=== PATIENT | male | born 1955 | race Caucasian/White ===

== ENCOUNTER → 2020-07-10 08:34 | Outpatient (REF) | payer MEDICARE, OTHER, SELFPAY ==
--- NOTE | 2020-07-10 08:30 | CA_ITS ---
Transthoracic Echocardiogram Patient (Last, First, Middle): Jonnathan Hyatt, Gender: Male Date of : 1955 Age: 65 Procedure Date: 07/10/2020 Procedure Type: Transthoracic Echocardiogram Location: OP Height: 175.26 cm Weight: 115.67 kg BSA: 2.29 m2 Heart Rate: bpm BP: 110 / 70 mmHg Executive Office Manager: [email or web address] Referring MD: Michael Hargrove MD Timber Repairer: Michael Hargrove MD Symptoms: Z98.890 S/P MV REPAIR, I48.0 PAF I34.0 NON RHEU MR Study Quality: Fair ECG Rhythm: Sinus with extra beats Conclusions: - 1. Normal LV systolic function with possible pseudonormal filling pattern 2. Good mitral valve repair with mitral annuloplasty ring in place 3. Normal RV systolic pressure 4. No gross pericardial effusion Findings Left Ventricle Normal left ventricular size, thickness, and systolic function. The visually estimated ejection fraction is between 60-65%. Spectral Doppler is indicative of a pseudonormal filling pattern. Right Ventricle Normal right ventricular cavity size and systolic function. Atria The left atrium is likely dilated. There is no evidence of interatrial shunt. The right atrium is normal in size. Aortic Valve There is mild calcification of the aortic valve. There is mild thickening of the aortic valve. There is no aortic valve stenosis. There is no aortic valve regurgitation. Mitral Valve There is mild anterior and posterior mitral leaflet thickening. There is trace mitral valve regurgitation. There is no mitral valve stenosis. Reflectile mitral annulus, consistent with mitral annular ring in place. Mitral repair appears adequate Pulmonic Valve The pulmonic valve was not well visualized. Tricuspid Valve Likely normal tricuspid valve structure and function. There is mild tricuspid valve regurgitation. The right ventricular systolic pressure is normal. The right ventricular systolic pressure is 19 mmHg. Normal right atrial pressure. There is no evidence of pulmonary hypertension. Great Vessels All visible segments of the aorta are normal in size. The pulmonary artery was not well visualized. Venous The inferior vena cava is normal in size and collapses greater than 50% with inspiration. Pericardium/Pleural There is no evidence of pericardial effusion. Prior Study Comparison No significant change compared to prior study dated: 07/13/2019. Measurements 2D Linear Measurements IVSd: 1.11 0.6-0.9/0.6-1.0 cm LVIDd: 4.87 3.9-5.3/4.2-5.9 cm LVIDd Index: 2.13 2.4-3.2/2.2-3.1 cm/m2 LVIDs: 3.14 2.0-3.6 cm LVPWd: 1.13 0.7-1.1 cm Ao Root: 3.80 2.1-3.5 cm LA Diam: 4.10 2.7-3.8/3.0-4.0 cm LAIDs Index: 1.79 1.5-2.3 cm/m2 LV Mass: 253.68 67-162/88-224 g LV Mass Index: 110.78 43-95/49-115 g/m2 LVOT Diam: 2.30 3.0+(-)1.3 cm 2D Systolic Function EF 4C: 59.90 >55% EF 2C: 60.90 >55% EF BiP: 59.30 >55% Mitral Valve MV VTI: 0.47 MV Pk Mathew: 1.36 MV Mn Mathew: 0.79 MV Pk Grad: 7.00 MV Mn Grad: 3.00 MV Pk E: 1.36 MV PK A: 0.64 MV Decel Time: 261.00 E/A: 2.10 E'Lateral: 9.19 E'Medial: 6.96 E/E' Med: 19.50 E/E' Lat: 14.80 PHT: 139.00 MVA PHT: 1.58 MVA Continuity: 1.86 Decel [place]: 2.94 Aortic Valve AoV Pk Mathew: 1.10 AoV Mn Mathew: 0.75 AoV VTI: 0.27 AoV Pk Grad: 5.00 Aov Mn Grad: 2.00 JIMBO Cont.VTI: 3.27 LVOT LVOT Pk Mathew: 0.87 LVOT Mn Mathew: 0.61 LVOT VTI: 0.21 LVOT Pk Grad: 3.00 LVOT Mn Grad: 2.00 LVOT Diam: 2.30 LVOT Area: 4.15 Diastolic Function MV Pk E: 1.36 MV Pk A: 0.64 E/A: 2.10 E'Medial: 6.96 E/E' Med: 19.50 E' Laterial: 9.19 E/E' Lat: 14.80 Tricuspid Valve TR Pk Mathew: 2.02 TR Pk Grad: 16.00 RA Press: 3.00 RVSP: 19.00 Great Vessels Aorta Ao Root-2D: 3.80 2.0-3.7 cm Ao Asc: 3.80 2.1-3.4 cm Ao Arch: 2.90 Updated in Other Vendor System with Status of Final Michael Hargrove MD electronically signed on 07/10/2020 3:53:04 PM with status of Final
== END ==
LOC: HO.CARD 08:34
PROVIDERS: Visit Provider Internal Medicine Cardiovascular Disease
DX: I34.0 Nonrheumatic mitral (valve) insufficiency (principal); I48.0 Paroxysmal atrial fibrillation; Z98.890 Other specified postprocedural states
CPT/HCPCS: 93306

== ENCOUNTER → 2020-07-24 08:53 | Outpatient (BNVA) | payer MEDICARE, OTHER, SELFPAY | PROVIDERS: PCP Nurse Practitioner Adult Health; Visit Provider Internal Medicine Cardiovascular Disease | DX: I48.0 Paroxysmal atrial fibrillation (principal); I10 Essential (primary) hypertension; Z98.890 Other specified postprocedural states; Z79.82 Long term (current) use of aspirin; Z79.899 Other long term (current) drug therapy | CPT/HCPCS: 93005; 99212 ==

== ENCOUNTER → 2021-07-07 08:39 | Outpatient (REF) | payer MEDICARE, OTHER, SELFPAY ==
--- NOTE | 2021-07-07 08:42 | CA_ITS ---
Transthoracic Echocardiogram Patient (Last, First, Middle): Jonnathan Hyatt, Gender: Male Date of : 1955 Age: 66 Procedure Date: 07/07/2021 Procedure Type: Transthoracic Echocardiogram Location: OP Height: 180.34 cm Weight: 116.58 kg BSA: 2.35 m2 Heart Rate: bpm BP: 120 / 62 mmHg Saw Straightener: ROJAS Referring MD: Michael Hargrove MD Home Improvement Advisor: Michael Hargrove MD Symptoms: Z98.890 - Other specified postprocedural states Study Quality: Good ECG Rhythm: Sinus Conclusions: - 1. Normal LV systolic function with possible psuedonormal filling pattern 2. Good mitral valve repair with annuloplasty ring in place 3. Normal RVSP 4. No pericardial effusion Findings Left Ventricle Normal left ventricular size, thickness, and systolic function. The visually estimated ejection fraction is between 60-65%. Spectral Doppler is indicative of a pseudonormal filling pattern. Right Ventricle Normal right ventricular cavity size and systolic function. Atria The left atrium is likely dilated. There is no evidence of interatrial shunt. The right atrium is normal in size. Aortic Valve There is mild calcification of the aortic valve. There is no aortic valve stenosis. There is trace (trivial) aortic valve regurgitation. Mitral Valve There is severe posterior mitral leaflet thickening. There is mild mitral annular calcification. There is trace mitral valve regurgitation. Mitral annular ring in place. Mild mitral stenosis cannot be ruled out. Pulmonic Valve The pulmonic valve was not well visualized. Tricuspid Valve Normal tricuspid valve structure. There is mild tricuspid valve regurgitation. The right ventricular systolic pressure is normal. The right ventricular systolic pressure is 27 mmHg. There is no evidence of pulmonary hypertension. Great Vessels All visible segments of the aorta are normal in size. The pulmonary artery was not well visualized. Venous The inferior vena cava is normal in size and collapses greater than 50% with inspiration. Pericardium/Pleural There is no evidence of pericardial effusion. Prior Study Comparison No significant change compared to prior study dated: 07/10/2020. Measurements 2D Linear Measurements IVSd: 1.13 0.6-0.9/0.6-1.0 cm LVIDd: 5.56 3.9-5.3/4.2-5.9 cm LVIDd Index: 2.37 2.4-3.2/2.2-3.1 cm/m2 LVIDs: 3.02 2.0-3.6 cm LVPWd: 1.06 0.7-1.1 cm LA Diam: 4.20 2.7-3.8/3.0-4.0 cm LAIDs Index: 1.79 1.5-2.3 cm/m2 LV Mass: 305.35 67-162/88-224 g LV Mass Index: 129.94 43-95/49-115 g/m2 LVOT Diam: 2.50 3.0+(-)1.3 cm 2D Systolic Function EF 4C: 64.80 >55% EF 2C: 53.50 >55% EF BiP: 59.30 >55% Mitral Valve MV Pk E: 1.25 MV PK A: 0.53 MV Decel Time: 224.00 E/A: 2.40 PHT: 66.00 MVA PHT: 3.33 Decel [place]: 5.57 Aortic Valve AoV Pk Mathew: 1.18 AoV Pk Grad: 6.00 AI Pk Mathew: 4.25 AI [place]: 1.53 LVOT LVOT Pk Mathew: 0.82 LVOT Mn Mathew: 0.51 LVOT VTI: 0.19 LVOT Pk Grad: 3.00 LVOT Mn Grad: 1.00 LVOT Diam: 2.50 LVOT Area: 4.91 Diastolic Function MV Pk E: 1.25 MV Pk A: 0.53 E/A: 2.40 Right Ventricle TAPSE (mm): 2.65 TVS' Mathew: 14.80 Tricuspid Valve TR Pk Mathew: 2.47 TR Pk Grad: 24.00 RA Press: 3.00 RVSP: 27.00 Great Vessels Aorta Sinus of Valsalva: 3.71 2.0-3.5 cm Ao Asc: 3.70 2.1-3.4 cm Updated in Other Vendor System with Status of Final Michael Hargrove MD electronically signed on 07/07/2021 10:08:45 PM with status of Final
== END ==
LOC: HO.CARD 08:39
PROVIDERS: PCP Nurse Practitioner Adult Health; Visit Provider Internal Medicine Cardiovascular Disease
DX: Z98.890 Other specified postprocedural states (principal)
CPT/HCPCS: 93306

== ENCOUNTER → 2021-07-13 08:49 | Outpatient (BNVA) | payer MEDICARE, OTHER, SELFPAY | PROVIDERS: PCP Nurse Practitioner Adult Health; Visit Provider Internal Medicine Cardiovascular Disease | DX: Z09 Encounter for follow-up examination after completed treatment for conditions other than malignant neoplasm (principal); I48.0 Paroxysmal atrial fibrillation; I49.9 Cardiac arrhythmia, unspecified; Z98.890 Other specified postprocedural states | CPT/HCPCS: 93005; 99212 ==

== ENCOUNTER → 2021-07-15 06:58 | Outpatient (REF) | payer MEDICARE, OTHER, SELFPAY ==
--- NOTE | 2021-07-15 07:01 | HM_ITS ---
* Total monitoring time 14 days. * Underlying rhythm is sinus. Average rate 70/Min. Range 46 to 112/Min. * Frequent ventricular ectopy. Overall burden 5%. 1 morphology. 863 couplets. No significant runs. * Patient symptoms recorded as 'other', correlating with PVCs. MTDD
== END ==
LOC: HO.CARD 06:58
PROVIDERS: Visit Provider Internal Medicine Cardiovascular Disease
DX: I49.9 Cardiac arrhythmia, unspecified (principal)
CPT/HCPCS: 93246

== ENCOUNTER → 2022-07-22 15:13 | Outpatient (BNVA) | payer MEDICARE, OTHER, SELFPAY | PROVIDERS: PCP Nurse Practitioner Adult Health; Referring Provider Nurse Practitioner Adult Health; Visit Provider Internal Medicine Cardiovascular Disease | DX: I48.0 Paroxysmal atrial fibrillation (principal); I10 Essential (primary) hypertension; Z98.890 Other specified postprocedural states | CPT/HCPCS: 93005; 99212 ==

== ENCOUNTER → 2022-08-11 07:43 | Outpatient (REF) | payer MEDICARE, OTHER, SELFPAY ==
--- NOTE | 2022-08-11 07:49 | CA_ITS ---
Transthoracic Echocardiogram Patient (Last, First, Middle): Jonnathan Hyatt, Gender: Male Date of : 1955 Age: 67 Procedure Date: 08/11/2022 Procedure Type: Transthoracic Echocardiogram Location: OP Height: 180.34 cm Weight: 112.49 kg BSA: 2.31 m2 Heart Rate: 63 bpm BP: 130 / 75 mmHg Database Manager: BRENDAN Referring MD: Michael Hargrove MD Symptoms: Z98.890 - Other specified postprocedural states Study Quality: Adequate ECG Rhythm: Normal sinus rhythm with PVCs Conclusions: - 1. Normal LV systolic function with pseudonormal filling pattern 2. Mildly dilated left atrium 3. Good mitral valve repair without any evidence of significant stenosis or regurgitation 4. Upper limits of normal RV systolic pressure 5. No gross pericardial effusion Findings Left Ventricle Normal left ventricular size, thickness, and systolic function. The visually estimated ejection fraction is between 55-60%. Spectral Doppler is indicative of a pseudonormal filling pattern. Right Ventricle Normal right ventricular cavity size and systolic function. Atria The left atrium is mildly dilated. There is no evidence of interatrial shunt. The right atrium is likely dilated. Aortic Valve There is mild calcification of the aortic valve. There is mild thickening of the aortic valve. There is no aortic valve stenosis. There is mild aortic valve regurgitation. Mitral Valve There is mild anterior and moderate posterior mitral leaflet thickening. The posterior mitral leaflet is immobile. There is mild mitral annular calcification. There is no mitral valve regurgitation. There is no mitral valve stenosis. Pulmonic Valve The pulmonic valve was not well visualized. Tricuspid Valve Normal tricuspid valve structure. There is mild anterior tricuspid leaflet thickening. Normal right atrial pressure. There is no evidence of pulmonary hypertension. Great Vessels All visible segments of the aorta are normal in size. The pulmonary artery was not well visualized. Venous The inferior vena cava is normal in size and collapses greater than 50% with inspiration. Pericardium/Pleural There is no evidence of pericardial effusion. Prior Study Comparison No significant change compared to prior study dated: 07/07/2021. Measurements 2D Linear Measurements IVSd: 0.94 0.6-0.9/0.6-1.0 cm LVIDd: 5.41 3.9-5.3/4.2-5.9 cm LVIDd Index: 2.34 2.4-3.2/2.2-3.1 cm/m2 LVIDs: 3.90 2.0-3.6 cm LVPWd: 0.95 0.7-1.1 cm LA Diam: 3.80 2.7-3.8/3.0-4.0 cm LAIDs Index: 1.65 1.5-2.3 cm/m2 LV Mass: 239.07 67-162/88-224 g LV Mass Index: 103.49 43-95/49-115 g/m2 LVOT Diam: 2.20 3.0+(-)1.3 cm 2D Systolic Function EF 4C: 53.90 >55% EF 2C: 59.40 >55% EF BiP: 56.20 >55% Mitral Valve MV Pk E: 1.66 MV PK A: 0.70 MV Decel Time: 177.00 E/A: 2.40 E'Lateral: 9.90 E'Medial: 7.72 E/E' Med: 21.50 E/E' Lat: 16.80 PHT: 52.00 MVA PHT: 4.[address] [place]: 9.41 Aortic Valve AoV Pk Mathew: 1.18 AoV Mn Mathew: 0.95 AoV VTI: 0.25 AoV Pk Grad: 6.00 Aov Mn Grad: 4.00 JIMBO Cont.VTI: 2.72 LVOT LVOT Pk Mathew: 0.89 LVOT Mn Mathew: 0.68 LVOT VTI: 0.18 LVOT Pk Grad: 3.00 LVOT Mn Grad: 2.00 LVOT Diam: 2.20 LVOT Area: 3.80 Diastolic Function MV Pk E: 1.66 MV Pk A: 0.70 E/A: 2.40 E'Medial: 7.72 E/E' Med: 21.50 E' Laterial: 9.90 E/E' Lat: 16.80 Right Ventricle TAPSE (mm): 22.40 TVS' Mathew: 12.80 Tricuspid Valve TR Pk Mathew: 2.96 TR Pk Grad: 35.00 RA Press: 3.00 RVSP: 38.00 Great Vessels Aorta Sinus of Valsalva: 4.20 2.0-3.5 cm Ao Asc: 3.60 2.1-3.4 cm Pulmonary Valve PV Pk Mathew: 0.96 Peak PV Grad: 4.00 Updated in Other Vendor System with Status of Final Michael Hargrove MD electronically signed on 08/12/2022 3:39:20 PM with status of Final
== END ==
LOC: HO.CARD 07:43
PROVIDERS: PCP Nurse Practitioner Adult Health; Visit Provider Internal Medicine Cardiovascular Disease
DX: Z98.890 Other specified postprocedural states (principal)
CPT/HCPCS: 93306

== ENCOUNTER → 2022-10-21 09:49 | Outpatient (BNVA) | payer MEDICARE, OTHER, SELFPAY | PROVIDERS: PCP Nurse Practitioner Adult Health; Visit Provider Internal Medicine Cardiovascular Disease | DX: R29.90 Unspecified symptoms and signs involving the nervous system (principal); I10 Essential (primary) hypertension; I48.0 Paroxysmal atrial fibrillation; Z98.890 Other specified postprocedural states | CPT/HCPCS: 99212 ==

== ENCOUNTER → 2023-10-04 07:51 | Outpatient (REF) | payer MEDICARE, OTHER, SELFPAY ==
--- NOTE | 2023-10-04 07:58 | CA_ITS ---
Transthoracic Echocardiogram Patient (Last, First, Middle): Jonnathan Hyatt, Gender: Male Date of : 1955 Age: 68 Procedure Date: 10/04/2023 Procedure Type: Transthoracic Echocardiogram Location: OP Height: 182.88 cm Weight: 113.4 kg BSA: 2.34 m2 Heart Rate: 65 bpm BP: 152 / 82 mmHg Geothermal Hvac Technician: POP Referring MD: Michael Hargrove MD Manager E Commerce: Michael Hargrove MD Symptoms: s/p Mitral valave repair. Study Quality: Adequate ECG Rhythm: Sinus Conclusions: - 1. Low normal LV ejection fraction of 50-55% with pseudonormal filling pattern 2. Good mitral valve repair 3. Mild aortic regurgitation 4. Normal RV systolic pressure 5. Mildly dilated ascending aorta at 3.8 cm 6. No pericardial effusion Findings Left Ventricle Normal left ventricular cavity size. There is normal left ventricular wall thickness. The left ventricular systolic function is low normal. The visually estimated ejection fraction is between 50-55%. Spectral Doppler is indicative of a pseudonormal filling pattern. Peak GLS is -11.1%, which is severely reduced. Right Ventricle Normal right ventricular cavity size and systolic function. Atria The left atrium is likely dilated. There is no evidence of interatrial shunt. The right atrium is normal in size. Aortic Valve There is mild calcification of the aortic valve. There is mild thickening of the aortic valve. There is no aortic valve stenosis. There is mild aortic valve regurgitation. Mitral Valve There is no mitral valve regurgitation. There is no mitral valve stenosis. mitral annular ring in place. Mitral valve repair appears intact Pulmonic Valve The pulmonic valve is likely normal. Tricuspid Valve Normal tricuspid valve structure. There is mild tricuspid valve regurgitation. The right ventricular systolic pressure is normal. The right ventricular systolic pressure is 31 mmHg. Normal right atrial pressure. There is no evidence of pulmonary hypertension. Great Vessels The pulmonary artery was not well visualized. There is mild dilatation of the ascending aorta measuring 3.80 cm. Venous The inferior vena cava is normal in size and collapses greater than 50% with inspiration. Pericardium/Pleural There is no evidence of pericardial effusion. Prior Study Comparison Changes noted compared to prior study dated: 08/11/2022. LV systolic function has marginally reduced. Ascending aorta is mildly dilated Measurements M-Mode Liner Measurements Normals - Women/Men RVIDd: 4.65 0.9-2.6 cm 2D Linear Measurements IVSd: 1.13 0.6-0.9/0.6-1.0 cm LVIDd: 5.45 3.9-5.3/4.2-5.9 cm LVIDd Index: 2.33 2.4-3.2/2.2-3.1 cm/m2 LVIDs: 4.00 2.0-3.6 cm LVPWd: 0.69 0.7-1.1 cm Ao Root: 3.90 2.1-3.5 cm LA Diam: 4.00 2.7-3.8/3.0-4.0 cm LAIDs Index: 1.71 1.5-2.3 cm/m2 LV Mass: 231.75 67-162/88-224 g LV Mass Index: 99.04 43-95/49-115 g/m2 LVOT Diam: 2.50 3.0+(-)1.3 cm 2D Volumes LA ESV A/L: 31.00 22-52/18-58 ML/M2 RA ESV A/L: 23.50 19-21 ML/M2 Mitral Valve MV VTI: 0.41 MV Pk Mathew: 1.73 MV Mn Mathew: 0.93 MV Pk Grad: 12.00 MV Mn Grad: 4.00 MV Pk E: 1.51 MV PK A: 0.57 MV Decel Time: 239.00 E/A: 2.70 E'Lateral: 7.29 E'Medial: 4.68 E/E' Med: 32.30 E/E' Lat: 20.70 PHT: 70.00 MVA PHT: 3.14 MVA Continuity: 2.03 Decel [place]: 6.33 Aortic Valve AoV Pk Mathew: 1.12 AoV Mn Mathew: 0.90 AoV VTI: 0.27 AoV Pk Grad: 5.00 Aov Mn Grad: 4.00 JIMBO Cont.VTI: 3.06 LVOT LVOT Pk Mathew: 0.77 LVOT Mn Mathew: 0.56 LVOT VTI: 0.17 LVOT Pk Grad: 2.00 LVOT Mn Grad: 2.00 LVOT Diam: 2.50 LVOT Area: 4.91 Diastolic Function MV Pk E: 1.51 MV Pk A: 0.57 E/A: 2.70 E'Medial: 4.68 E/E' Med: 32.30 E' Laterial: 7.29 E/E' Lat: 20.70 IVC Diam Insp: 1.40 IVC Diam Exp: 0.38 Right Ventricle TAPSE (mm): 16.50 TVS' Mathew: 13.80 Tricuspid Valve TR Pk Mathew: 2.66 TR Pk Grad: 28.00 RA Press: 3.00 RVSP: 31.00 IVC Diam Exp: 0.38 IVC Diam Insp: 1.40 Great Vessels Aorta Ao Root-2D: 3.90 2.0-3.7 cm Sinus of Valsalva: 3.90 2.0-3.5 cm Ao Asc: 3.80 2.1-3.4 cm Pulmonary Valve PV Pk Mathew: 0.91 Peak PV Grad: 3.00 Updated in Other Vendor System with Status of Final Michael Hargrove MD electronically signed on 10/05/2023 12:02:43 PM with status of Final
== END ==
LOC: HO.CARD 07:51
PROVIDERS: Visit Provider Internal Medicine Cardiovascular Disease
DX: Z98.890 Other specified postprocedural states (principal)
CPT/HCPCS: 93306; 93356

== ENCOUNTER → 2023-10-04 07:58 | Outpatient (BNV) | payer MEDICARE, OTHER, SELFPAY | PROVIDERS: Visit Provider Internal Medicine Cardiovascular Disease | DX: I36.1 Nonrheumatic tricuspid (valve) insufficiency (principal); Z95.2 Presence of prosthetic heart valve; I35.1 Nonrheumatic aortic (valve) insufficiency; R93.1 Abnormal findings on diagnostic imaging of heart and coronary circulation | CPT/HCPCS: 93306; 93356 ==

== ENCOUNTER 2024-03-28 10:26 | Outpatient (AMB) | payer MEDICARE, OTHER, SELFPAY ==
--- NOTE | 2024-03-28 10:26 | A.OFFVIS_ITS ---
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 Overall he has been doing well. Maintain activity level without any issues. No lightheadedness, syncope. Echocardiogram done in September showed good mitral valve repair with low normal LV ejection fraction with mildly dilated ascending aorta. Denies any prolonged palpitation irregular heartbeat. No bleeding issues or neurologic events. FORMERLY [facility], 1928–1983 Medical History HTN (hypertension) Paroxysmal atrial fibrillation Surgical History H/O mitral valve repair Hx of transesophageal echocardiography (JAIDA) for monitoring Hx of hernia repair Family History Father No problems noted. Mother No problems noted. Social History Alcohol intake: never Patient Tobacco Use Status: Never used Tobacco Review of Systems Const Denies chills, Denies fatigue, Denies fever(s), Denies weight gain and Denies weight loss ENT Denies dizziness Card Denies chest pain, Denies leg edema, Denies lightheadedness, Denies palpitations, Denies dyspnea on exertion, Denies orthopnea and Denies other Resp Denies cough and Denies dyspnea on exertion GI Denies hematochezia and Denies change in stool character Musc Denies abnormal gait, Denies muscle weakness, Denies numbness, Denies radiating pain into limb and Denies tingling Neuro Denies abnormal gait, Denies dizziness, Denies numbness and Denies tingling Endo Denies fatigue and Denies palpitations Physical Exam Vital Signs: Last Vital Signs Pulse 69 03/28/24 10:27 BP 116/58 L 03/28/24 10:27 BMI result Body Mass Index 34.0 Const General: cooperative, comfortable, no acute distress, alert, awake, Physically active and well groomed Nutritional Appearance: obese Orientation/consciousness: patient oriented x3 Limitations: no limitations Neck Neck: Yes trachea midline and Yes no JVD Chest Chest palpation & inspection: normal inspection of the chest and other (Well- healed sternotomy scar) Resp Effort & Inspection: normal respiratory effort Auscultation: clear to auscultation bilaterally Cardio Jugular venous distension: no JVD Palpation: normal PMI Rate: regular rate Rhythm: abnormal rhythm with ectopic beats Heart sounds: S1 normal heart sound present, S2 normal heart sound present, no click, no gallops and no murmurs GI Auscultation: normal bowel sounds Skin General skin exam: no rashes or lesions noted Neuro General: patient oriented x3 and no focal motor deficits Extrem General: Yes no clubbing, cyanosis or edema Psych Appearance: grossly normal Office Procedures EKG Details: EKG shows normal sinus rhythm normal EKG [id number], Complete Assessment & Plan Assessment & Plan (1) H/O mitral valve repair: Code(s): Z98.890 - Other specified postprocedural states Category: Surgical Plan: Patient with prior mitral valve repair which clinically and by echocardiogram is working well. Low normal LV ejection fraction. Continue metoprolol lisinopril with both for neurohormonal modulation as well as for hypertension control. Blood pressure is currently well optimized. No signs or symptoms of heart failure. Currently on full oral anticoagulation with Eliquis and will continue the same. SBE prophylaxis as per ACC/[facility] guidelines. (2) Paroxysmal atrial fibrillation: Comment: Status post biatrial Maze procedure during mitral valve repair surgery call with no clinical recurrence since. Has led to preoperative heart failure. Code(s): I48.0 - Paroxysmal atrial fibrillation Category: Medical Plan: Paroxysmal atrial fibrillation without any overt clinical recurrence currently. Continue metoprolol therapy. Avoidance of stimulants was discussed. Continue full oral anticoagulation, currently on Eliquis 5 mg b.i.d.. No indication for antiarrhythmic drug therapy. Semi annual renal function test should be pursued. Will follow up in the clinic in 1 year's time, sooner p.r.n.. Thank you for allowing me to partake in his care Coding Level of Care Code Est Pt Level 4 (39006) Complex EM visit Add On G2211 Diagnoses H/O mitral valve repair Z98.890 Paroxysmal atrial fibrillation I48.0 CPT Codes EKG - CPT: 79440-[id number], Complete ([id number])
[2024-03-28 10:27] VITALS: BP 116/58; PULSE 69; BMI 34.0
== END 2024-03-28 10:46 | disposition home or self-care (01) ==
PROVIDERS: Visit Provider Internal Medicine Cardiovascular Disease
DX: Z98.890 Other specified postprocedural states (principal); I48.0 Paroxysmal atrial fibrillation
CPT/HCPCS: 93010; 99214; G2211

== ENCOUNTER → 2024-03-28 10:26 | Outpatient (BNVA) | payer MEDICARE, OTHER, SELFPAY | PROVIDERS: Visit Provider Internal Medicine Cardiovascular Disease | DX: I48.0 Paroxysmal atrial fibrillation (principal); Z98.890 Other specified postprocedural states | CPT/HCPCS: 93005; 99212 ==

== ENCOUNTER → 2025-03-19 07:39 | Outpatient (REF) | payer MEDICARE, OTHER, SELFPAY ==
--- NOTE | 2025-03-19 07:42 | CA_ITS ---
Transthoracic Echocardiogram Patient (Last, First, Middle): Jonnathan Hyatt, Gender: M Date of : 1955 Age: 69 Procedure Date: 03/19/2025 Procedure Type: Transthoracic Echocardiogram Location: OP Height: 182.88 cm Weight: 113.4 kg BSA: 2.34 m2 Heart Rate: bpm BP: 128 / 76 mmHg Patient Registration Specialist: TO Referring MD: Michael Hargrove MD Symptoms: Z98.890 - Other specified postprocedural states Study Quality: Adequate w contrast Conclusions: - The left ventricular systolic function is mildly decreased. The calculated ejection fraction is 42% by biplane method. - Moderately increased right ventricular cavity size. - Evidence suggests grade II (moderate) diastolic dysfunction. - s/p mitral valve repair with normal valvular function. Findings Procedure Information Contrast agent, definity, is being given per protocol without apparent complications. Left Ventricle Normal left ventricular cavity size. The left ventricular systolic function is mildly decreased. The calculated ejection fraction is 42% by biplane method. There is mild global hypokinesis. Evidence suggests grade II (moderate) diastolic dysfunction. There is mild septal asymmetric hypertrophy. Right Ventricle Moderately increased right ventricular cavity size. There is normal right ventricular systolic function. Atria Mild biatrial enlargement. Aortic Valve There is a normal trileaflet aortic valve. There is mild calcification of the aortic valve. There is no aortic valve stenosis. There is trace (trivial) aortic valve regurgitation. Mitral Valve There is trace mitral valve regurgitation. There is no mitral valve stenosis. s/p mitral valve repair. Pulmonic Valve The pulmonic valve is likely normal. Tricuspid Valve There is trace tricuspid valve regurgitation. There is no evidence of pulmonary hypertension. Great Vessels The asc aorta is normal in size. Venous The inferior vena cava is normal in size and collapses greater than 50% with inspiration. Pericardium/Pleural There is no evidence of pericardial effusion. Prior Study Comparison Changes noted compared to prior study dated: 10/04/2023. LVEF slightly lower than previously reported. Measurements 2D Linear Measurements IVSd: 1.04 0.6-0.9/0.6-1.0 cm LVIDd: 5.43 3.9-5.3/4.2-5.9 cm LVIDd Index: 2.32 2.4-3.2/2.2-3.1 cm/m2 LVIDs: 3.53 2.0-3.6 cm LVPWd: 0.96 0.7-1.1 cm LA Diam: 4.30 2.7-3.8/3.0-4.0 cm LAIDs Index: 1.84 1.5-2.3 cm/m2 LV Mass: 259.73 67-162/88-224 g LV Mass Index: 110.99 43-95/49-115 g/m2 LVOT Diam: 2.50 3.0+(-)1.3 cm 2D Systolic Function EF 4C: 43.40 >55% EF 2C: 39.40 >55% EF BiP: 42.20 >55% Mitral Valve MV VTI: 0.41 MV Pk Mathew: 1.53 MV Mn Mathew: 0.77 MV Pk Grad: 9.00 MV Mn Grad: 3.00 MV Pk E: 1.39 MV PK A: 0.49 MV Decel Time: 246.00 E/A: 2.90 E'Lateral: 7.51 E'Medial: 5.22 E/E' Med: 26.60 E/E' Lat: 18.50 PHT: 72.00 MVA PHT: 3.06 MVA Continuity: 1.68 Decel [place]: 5.67 Aortic Valve AoV Pk Mathew: 1.08 AoV Mn Mathew: 0.82 AoV VTI: 0.22 AoV Pk Grad: 5.00 Aov Mn Grad: 3.00 JIMBO Cont.VTI: 3.10 LVOT LVOT Pk Mathew: 0.72 LVOT Mn Mathew: 0.53 LVOT VTI: 0.14 LVOT Pk Grad: 2.00 LVOT Mn Grad: 1.00 LVOT Diam: 2.50 LVOT Area: 4.91 Diastolic Function MV Pk E: 1.39 MV Pk A: 0.49 E/A: 2.90 E'Medial: 5.22 E/E' Med: 26.60 E' Laterial: 7.51 E/E' Lat: 18.50 Right Ventricle TAPSE (mm): 20.90 TVS' Mathew: 11.50 Tricuspid Valve TR Pk Mathew: 1.83 TR Pk Grad: 13.00 RA Press: 3.00 RVSP: 16.00 Great Vessels Aorta Ao Asc: 3.70 2.1-3.4 cm Updated in Other Vendor System with Status of Final Jose Grimaldo MD electronically signed on 03/20/2025 4:06:54 PM with status of Final
== END ==
LOC: HO.CARD 07:39
PROVIDERS: Visit Provider Internal Medicine Cardiovascular Disease
DX: Z98.890 Other specified postprocedural states (principal)
CPT/HCPCS: 93306; Q9957

== ENCOUNTER → 2025-03-19 07:42 | Outpatient (BNV) | payer MEDICARE, OTHER, SELFPAY | PROVIDERS: Visit Provider Internal Medicine | DX: I42.2 Other hypertrophic cardiomyopathy (principal); I51.89 Other ill-defined heart diseases; Z98.890 Other specified postprocedural states | CPT/HCPCS: 93306 ==

== ENCOUNTER 2025-03-21 15:16 | Outpatient (AMB) | payer MEDICARE, OTHER, SELFPAY ==
[2025-03-21 15:22] VITALS: BP 120/80; PULSE 70; BMI 35.0
--- NOTE | 2025-03-21 15:22 | A.OFFVIS_ITS ---
Vital Signs 03/21/25 15:22 Height 6 ft Weight 257 lb 15.053 oz BMI 35.0 BP 120/80 Blood Pressure Location Lt brachial Position Sitting Pulse 70 Intake Visit Reasons: 1 yr follow up/ echo ns/rs Intake Note: 1 year follow-up with ekg after echo feeling good Lubrication Supervisor Required: No Allergies No Known Allergies (No Known Allergies*) Allergy (Verified 02/29/20 14:08) Medication List - Last Reconciled 03/21/25 by Michael Hargrove MD amoxicillin 2,000 mg (4 x 500 mg) PO ONCE apixaban (Eliquis) 5 mg PO BID 90 days atorvastatin 80 mg PO DAILY gabapentin 300 mg PO TID lisinopril 5 mg PO DAILY metoprolol succinate ER 25 mg PO DAILY HPI Comments Details: Thompson comes for follow-up. He has been doing well. No cardiac symptoms. No prolonged palpitation irregular heartbeat. Denies any worsening shortness of breath, orthopnea, PND. Does attest to snoring at nighttime and says occasionally he has noticed to have stopped breathing. He has not been able to schedule a home sleep study. Taking all his medications. Most recent echocardiogram shows reduction LV ejection fraction to 40%. [facility] Medical History HTN (hypertension) Paroxysmal atrial fibrillation Surgical History H/O mitral valve repair Hx of transesophageal echocardiography (JAIDA) for monitoring Hx of hernia repair Family History Father No problems noted. Mother No problems noted. Social History Alcohol intake: never Patient Tobacco Use Status: Never used Tobacco Review of Systems Const Denies chills, Denies fatigue, Denies fever(s), Denies frequent falls, Denies weakness, Denies weight gain and Denies weight loss ENT Denies dizziness Card Denies chest pain, Denies leg edema, Denies lightheadedness, Denies palpitations, Denies dyspnea, Denies dyspnea on exertion, Denies orthopnea and Denies other (loss of consciousness) Resp Denies cough, Denies dyspnea and Denies dyspnea on exertion GI Denies hematochezia and Denies change in stool character Musc Denies abnormal gait, Denies muscle weakness, Denies numbness, Denies radiating pain into limb and Denies tingling Neuro Denies abnormal gait, Denies dizziness, Denies frequent falls, Denies numbness, Denies tingling and Denies weakness Endo Denies fatigue and Denies palpitations Physical Exam Vital Signs: Last Vital Signs Pulse 70 03/21/25 15:22 BP 120/80 03/21/25 15:22 BMI result Body Mass Index 35.0 Const General: cooperative, comfortable, no acute distress, alert, awake, Physically active and well groomed Nutritional Appearance: obese Orientation/consciousness: patient oriented x3 Limitations: no limitations Neck Neck: Yes trachea midline and Yes no JVD Chest Chest palpation & inspection: normal inspection of the chest and other (Well- healed sternotomy scar) Resp Effort & Inspection: normal respiratory effort Auscultation: clear to auscultation bilaterally Cardio Jugular venous distension: no JVD Palpation: normal PMI Rate: regular rate Rhythm: abnormal rhythm with ectopic beats Heart sounds: S1 normal heart sound present, S2 normal heart sound present, no click, no gallops and no murmurs GI Auscultation: normal bowel sounds Skin General skin exam: no rashes or lesions noted Neuro General: patient oriented x3 and no focal motor deficits Extrem General: Yes no clubbing, cyanosis or edema Psych Appearance: grossly normal Office Procedures EKG Details: EKGs shows normal sinus rhythm normal EKGs 33203-[id number], Complete Assessment & Plan Assessment & Plan (1) Cardiomyopathy: Code(s): I42.9 - Cardiomyopathy, unspecified Category: Medical Plan: New cardiomyopathy process without any new symptoms. There is ttax-zu-zmczwozg LV systolic dysfunction. This is concerning. This could be related to cardiomyopathy process associated with his prior mitral valve repair and detention consequences are negative remodeling. Also could be due to untreated sleep apnea. Strongly recommended to pursue sleep study. Meanwhile will transition him from lisinopril to Entresto therapy. Will start him from lisinopril to valsartan 40 mg b.i.d.. Advised to monitor blood pressure at home. Follow-up blood pressure check in basic metabolic profile in 7-10 days. If he tolerates this transition will then transition him to Entresto therapy and gradually uptitrate as tolerated. Signs and symptoms of heart failure were discussed. Follow-up limited echocardiogram in 6 months time. (2) H/O mitral valve repair: Code(s): Z98.890 - Other specified postprocedural states Category: Surgical Plan: Prior history of mitral valve repair for severe mitral valve regurgitation secondary mitral valve prolapse. Clinically working well. Continue risk factor modification. Currently on full oral anticoagulation Eliquis. SBE prophylaxis as per ACC/[place] guidelines. (3) Paroxysmal atrial fibrillation: Comment: Status post biatrial Maze procedure during mitral valve repair surgery call with no clinical recurrence since. Has led to preoperative heart failure. Code(s): I48.0 - Paroxysmal atrial fibrillation Category: Medical Plan: Paroxysmal atrial fibrillation which is has remained suppressed. Continue metoprolol therapy. Avoidance of stimulants was discussed. Continue full oral anticoagulation, currently on Eliquis 5 mg b.i.d.. Semi annual renal function test is recommended. Will follow up in the clinic in 6 months time, sooner PRN. Thank you for allowing me to partake in his care Orders: Orders CA Echo Limited 6 Months I42.9 - Cardiomyopathy, unspecified Basic Metabolic Panel 1 Week I42.9 - Cardiomyopathy, unspecified Medications: New valsartan 40 mg PO BID 60 tabs 1RF Coding Level of Care Code Complex visit Add On G2211 Diagnoses Cardiomyopathy I42.9 H/O mitral valve repair Z98.890 Paroxysmal atrial fibrillation I48.0 CPT Codes EKG - CPT: 10408-Ywmajshqmwfpehzbd, Complete ([id number])
--- OUTSIDE RECORDS SUMMARY | 2025-03-21 20:31 | XMS_ITS | Encounter Summary ---
Author Organization [facility] Address [address] [place] [address] Phone Care Team Providers Care Automotive Hardware Engineer Name Role Phone Dallas Kirby REVENUE SPECIALIST Primary Care Provider [phone] Richardson Mckeon MD Unavailable [phone] Jagruti Jiménez MD Unavailable [phone] Zoila Hart MD Unavailable Michael Hargrove MD Unavailable Minerva Mcmillan PA-C Unavailable [phone] Dorian Arana DO Unavailable [phone] Rianna Reina OT Unavailable Zoila Hart MD Unavailable Dallas Kirby CNP Unavailable [phone] Encounter Details Date Type Department Care Team (Late st Contact Info) Description 04/15/2020 Procedure Pass [facility], [address] [address] Social History Tobacco Use Types Packs/Day Years Used Date Smoking Tobacco: Never Smokeless Tobacco: Never Comments: smoked but onur t age 29. Alcohol Use Standard Drinks/Week Comments No 0 (1 standard drink = 0.6 oz pur e alcohol) No history of abuse. 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, [address] [place] [address] [email or web address] documented as of this encounter Visit Diagnoses Not on filedocumented in this encounter Additional Health Concerns Infection Onset Date Last Indicated Resolved Time CoV-Exposed Comment:Recent close contact 04/28/2020 04/28/2020 05/12/2020 1:24 AM EST Assessment Noted Time PHQ-2 Depression Total Score: 0 11/21/19 10:41 AM EDT documented as of this encounter Care Teams Automotive Hardware Engineer Relationship Specialty Start Date End Date Dallas Kirby CNP [address] [place] [address], [address] [address] PCP - General Family Medicine 04/20/19 Richardson Mckeon MD [address] [place] [address], [address] [place] [address] [email or web address] Insurance Assigned Provider 08/06/23 08/05/24 Jagruti Jiménez MD [address] [place] [address], [address] [place] [address] [email or web address] 05/07/19 Zoila Hart MD [address] [place] [address] Dermatology 11/21/19 07/14/23 Michael Hargrove MD [address] [place] [address] [place] [address] Cardiology 10/10/20 Minerva Mcmillan PA-C [address] [place] [address] Physician Civil Attorney Hematology 10/30/20 07/05/21 Dorian Arana DO [address] [place] [address] [email or web address] Primary Oncologist Hematology and Oncology 10/30/20 2 Rianna Reina, OT [address] [place] [address] [email or web address] Transitions Purification OperatorAdmissions Consultant Therapy 10/15/22 10/18/22 Zoila Hart MD [address] [address] Dermatology 07/15/23 Dallas Kirby CNP [address] [facility], [address] [place] [address] [email or web address] Insurance Assigned Provider 08/05/24 documented as of this encounter Additional Source Comments The information contained in this document represents components of the legal health record. It is not the complete legal health record.[facility]
--- OUTSIDE RECORDS SUMMARY | 2025-03-21 20:31 | XMS_ITS | Encounter Summary ---
Author Organization [facility] Address [address] [place] [address] [place] [address] Phone Care Team Providers Care Chemical Laboratory Technician Name Role Phone Gutierrez Guadalupe DO Primary Care Provider [phone] Michael Hargrove MD Unavailable [phone] Dallas Kirby CNP Primary Care Provider [phone] Richardson Mckeon MD Unavailable Jagruti Jiménez MD Unavailable [phone] Zoila Hart MD Unavailable Michael Hargrove MD Unavailable Minerva Mcmillan PA-C Unavailable Dorian Arana DO Unavailable [phone] Rianna Reina OT Unavailable Zoila Hart MD Unavailable Dallas Kirby CNP Unavailable Encounter Details Date Type Department Care Team (Late st Contact Info) Description 12/09/2017 Ancillary Orders [facility], X-Ray - [facility] [address] [place] [address] Juan José Rivera MD [address] [place] [address], [address] [place] [address] [email or web address] Encounter for imaging to screen for metal prior to magnetic resonance imaging (MRI) Social History Tobacco Use Types Packs/Day Years Used Date Smoking Tobacco: Never Smokeless Tobacco: Never Alcohol Use Standard Drinks/Week Comments No 0 (1 standard drink = 0.6 oz pur e alcohol) Sex and Gender Information Value Date Recorded Sex Assigned at Male 09/30/2020 11:26 PM EDT Legal Sex Male 9:56 PM EDT Gender Identity Male 09/30/2020 11:26 PM EDT Sexual Orientation Straight 09/30/2020 11 :26 PM EDT documented as of this encounter Plan of Treatment Upcoming Encounters Date Type Department Care Team (Late st Contact Info) Description 07/19/2025 8:00 AM EDT Office Visit [facility] [address] [place] [address] Dallas Kirby, MANSOOR [address] [facility], [address] [place] [address] documented as of this encounter Results * XR Orbits Series (12/09/2017 8:36 AM EDT) Anatomical Region Laterality Modality Face Radiographic Kelly ging 12/09/2017 9:39 AM EDT Impressions 12/09/2017 9:41 AM EDT No metallic foreign body. 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 Pre-MRI exam. COMPARISON: None FINDINGS: 3 views of the orbits are performed. No metallic foreign body present. No acute fracture or destructive bone lesion. Mucosal thickening suggested in the maxillary sinuses greater on the right. 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 Pre-MRI exam. COMPARISON: None FINDINGS: 3 views of the orbits are performed. No metallic foreign body present.No acute fracture or destructive bone lesion. Mucosal thickeningsuggested in the maxillary sinuses greater on the right. IMPRESSION: No metallic foreign body. POS - [id number] Juan José Rivera MD IMG XR HEAD AND SHUNT SER IES Final Result documented in this encounter Visit Diagnoses Diagnosis Encounter for imaging to screen for metal prior to magnetic resonance imaging (MRI) Encounter for imaging to screen for metal prior to magnetic resonance imaging (MRI) documented in this encounter Additional Health Concerns Infection Onset Date Last Indicated Resolved Time CoV-Exposed Comment:Recent close contact 04/28/2020 04/28/2020 05/12/2020 1:24 AM EST documented as of this encounter Care Teams Chemical Laboratory Technician Relationship Specialty Start Date End Date Gutierrez Guadalupe DO 5 [place] [address] PCP - General Internal Medicine 01/28/17 04/19/19 Dallas Kirby CNP [address] [place] [address], [address] [place] [address] PCP - General Family Medicine 04/20/19 Michael Hargrove MD [address] [place] [address] [place] Bailiff Cardiology 01/28/17 04/19/19 Richardson Mckeon MD [address] [place] [address], [address] [place] [address] Insurance Assigned Provider 08/06/23 08/05/24 Jagruti Jiménez MD [address] [place] [address], [address] [place] [address] [email or web address] 05/07/19 Zoila Hart MD [address] [place] [address] Dermatology 11/21/19 07/14/23 Michael Hargrove MD [address] [place] [address] [place] [address] Cardiology 10/10/20 Minerva Mcmillan PA-C 30 [place] [address] Physician Photo Producer Hematology 10/30/20 07/05/21 Dorian Arana DO [address] [place] [address] [email or web address] Primary Oncologist Hematology and Oncology 10/30/20 2 Rianna Reina, OT 30 [place] [address] [email or web address] Transitions Special Procedures TechInstructor Knitting Therapy 10/15/22 10/18/22 Zoila Hart MD [address], [place] [address] Dermatology 07/15/23 Dallas Kirby CNP [address] [facility], [address] [place] [address] [email or web address] Insurance Assigned Provider 08/05/24 documented as of this encounter Additional Source Comments The information contained in this document represents components of the legal health record. It is not the complete legal health record.[facility]
--- OUTSIDE RECORDS SUMMARY | 2025-03-21 20:31 | XMS_ITS | Encounter Summary ---
Author Organization [facility] Address [facility] [address] [place] [address] Phone Care Team Providers Care Network Analyst Name Role Phone Gutierrez Guadalupe DO Primary Care Provider [phone] Michael Hargrove MD Unavailable Dallas Kirby CNP Primary Care Provider [phone] Richardson Mckeon MD Unavailable Jagruti Jiménez MD Unavailable [phone] Zoila Hart MD Unavailable [phone] Michael Hargrove MD Unavailable Minerva Mcmillan PA-C Unavailable Dorian Arana DO Unavailable Rianna Reina OT Unavailable [phone] Zoila Hart MD Unavailable Dallas Kirby CNP Unavailable Encounter Details Date Type Department Care Team (Latest Contact Info) Description 12/09/2017 Transcribe Orders [facility] [address] [place] [address] Juan José Rivera MD [address] [facility], [address] [place] [address] [email or web address] Sensory hearing loss, bilateral (Primary Dx) Social History Tobacco Use Types Packs/Day Years [...] Description 07/19/2025 8:00 AM EDT Office Visit [address] [place] [address] Dallas Kirby, MANSOOR [address] [facility], [address] [place] [address] documented as of this encounter Results * (ABNORMAL) BUN (12/09/2017 8:04 AM EDT) BUN 26(H) 6 - 19 mg/dL [facility] Blood 12/09/2017 8:04 AM EDT 12/09/2017 8:07 AM EDT us Juan José Rivera MD LAB BLOOD BKR ORDERABLES Final Result [facility] [address] [place] [address] documented in this encounter Visit Diagnoses Diagnosis Sensory hearing loss, bilateral- Primary documented in this encounter Additional Health Concerns Infection Onset Date Last Indicated Resolved Time CoV-Exposed Comment:Recent close contact 04/28/2020 04/28/2020 05/12/2020 1:24 AM EST documented as of this encounter Care Teams Network Analyst Relationship Specialty Start Date End Date Gutierrez Guadalupe DO [address] [place] [address] PCP - General Internal Medicine 01/28/17 04/19/19 Dallas Kirby CNP [address] [place] [address], [address] [place] [address] [email or web address] PCP - General Family Medicine 04/20/19 Michael Hargrove MD [address] [place] [address] [place] [address] Ward Nurse Cardiology 01/28/17 04/19/19 Richardson Mckeon MD [address] [place] [address], [address] [place] [address] [email or web address] Insurance Assigned Provider 08/06/23 08/05/24 Jagruti Jiménez MD [address] [place] [address], [address] [place] [address] [email or web address] 05/07/19 Zoila Hart MD [address] [place] [address] Dermatology 11/21/19 07/14/23 Michael Hargrove MD [address] [place] [address] [place] [address] Cardiology 10/10/20 Minerva Mcmillan PA-C [address] [place] [email or web address] Physician Field Sales Associate Hematology 10/30/20 07/05/21 Dorian Arana DO [address] [place] [address] [email or web address] Primary Oncologist Hematology and Oncology 10/30/20 2 Rianna Reina, OT [address] [place] [address] [email or web address] Transitions Wedding DecoratorTour Conductor Therapy 10/15/22 10/18/22 Zoila Hart MD [address], [place] [address] Dermatology 07/15/23 Dallas Kirby CNP [address] [facility], [address] [place] [address] [email or web address] Insurance Assigned Provider 08/05/24 documented as of this encounter Additional Source Comments The information contained in this document represents components of the legal health record. It is not the complete legal health record.[facility]
--- OUTSIDE RECORDS SUMMARY | 2025-03-21 20:31 | XMS_ITS | Encounter Summary ---
Author Organization [facility] Address [address] [place] [address] Phone Care Team Providers Care Cargo Handler Name Role Phone Dallas Kirby CNP Primary Care Provider Rcihardson Mckeon MD Unavailable [phone] Jagruti Jiménez MD Unavailable [phone] Zoila Hart MD Unavailable [phone] Michael Hargrove MD Unavailable Minerva Mcmillan PA-C Unavailable [phone] Dorian Arana DO Unavailable Rianna Reina OT Unavailable Zoila Hart MD Unavailable [phone] Dallas Kirby LIFE SKILLS SPECIALIST Unavailable [phone] Encounter Details Date Type Department Care Team (Late st Contact Info) Description 08/13/2020 Prep for Surgery [facility] Medical [facility] [address] [place] [address] [id number] Socrates Mclean DO [address] [place] [address] Orthopedics & Sports Medicine, [facility] [place], [place] [id number] [email or web address] Nontraumatic incomplete tear of right rotator cuff (Primary Dx) Social History Tobacco Use Types [...] Description 07/19/2025 8:00 AM EDT Office Visit [facility] Medicine [address] [place] [address] Dallas Kirby CNP [address] [place] [address], [address] [place] [address] [email or web address] documented as of this encounter Visit Diagnoses Diagnosis Nontraumatic incomplete tear of right rotator cuff- Primary documented in this encounter Additional Health Concerns Assessment Noted Time PHQ-2 Depression Total Score: 0 11/21/19 10:41 AM EDT documented as of this encounter Care Teams Cargo Handler Relationship Specialty Start Date End Date Dallas Kirby CNP [address] [place] [address], [address] [place] [address] [email or web address] PCP - General Family Medicine 04/20/19 Richardson Mckeon MD [address] [place] [address], [address] [place] [address] [email or web address] Insurance Assigned Provider 08/06/23 08/05/24 Jagruti Jiménez MD [address] [place] [address], [address] [place] [address] [email or web address] 05/07/19 Zoila Hart MD [address] [place] [address] Dermatology 11/21/19 07/14/23 Michael Hargrove MD [address] [place] [address] [place] [address] Cardiology 10/10/20 Minerva Mcmillan PA-C [address] [place] [address] [email or web address] Physician Paper Inspector Hematology 10/30/20 07/05/21 Dorian Arana DO [address] [place] [address] [email or web address] Primary Oncologist Hematology and Oncology 10/30/20 2 Rianna Reina, OT [address] [place] [address] [email or web address] Transitions Legal AdvisorDuty Engineer Therapy 10/15/22 10/18/22 Zoila Hart MD [address] [place] [address] Dermatology 07/15/23 Dallas Kirby CNP 22 [facility], [address] [place] [address] [email or web address] Insurance Assigned Provider 08/05/24 documented as of this encounter Additional Source Comments The information contained in this document represents components of the legal health record. It is not the complete legal health record.[facility]
--- OUTSIDE RECORDS SUMMARY | 2025-03-21 20:31 | XMS_ITS | Clinical Summary ---
Author Organization [facility] Address [facility] [address] [address] Phone Care Team Providers Care General Engineer Name Role Phone Emmanuel Lanza CNP Primary Care Provider [phone] Jagruti Jiménez MD Unavailable [phone] Michael Hargrove MD Unavailable [phone] Zoila Hart MD Unavailable [phone] Emmanuel Lanza CNP Unavailable [phone] Allergies No known active allergies Medications metoprolol succinate (TOPROL-XL) 25 MG 24 hr tablet Take 25 mg by mouth daily. Active acetaminophen (TYLENOL) 325 mg tablet Take 650 mg by mouth every 6 (six) hours as needed for mild pain. Active amoxicillin (AMOXIL) 500 MG capsule 500 mg. For dental work 07/06/19 22 Active ELIQUIS 5 mg tablet TAKE 1 TABLET BY MOUTH TWICE A DAY 180 tablet 3 07/12/19 25 Active lisinopril (PRINIVIL,ZESTRI L) 5 MG tabletIndication s:Essential hypertension TAKE 1 TABLET (5 MG TOTAL) BY MOUTH DAILY. 90 tablet 3 09/26/19 25 Active tamsulosin (FLOMAX) 0.4 mg Cap 09/27/19 25 Active atorvastatin (LIPITOR) 80 MG tablet TAKE 1 TABLET BY MOUTH EVERY EVENING 90 tablet 2 10/25/19 25 Active gabapentin (NEURONTIN) 300 MG capsule TAKE 1 CAPSULE BY MOUTH THREE TIMES A DAY 270 capsule 1 03/18/20 25 Active gabapentin (NEURONTIN) 300 MG capsule Take 1 capsule (300 mg total) by mouth 3 (three) times a day. 270 capsule 1 09/22/19 25 025 Discontinued predniSONE (DELTASONE) 20 MG tablet Take 1 tablet (20 mg total) by mouth daily with breakfast. 5 tablet 09/29/19 025 Discontinued(St op Taking at Discharge) Active Problems Problem Noted Date Diagnosed Date Choroidal neovascularization of left eye 025 Assessment & Plan (07/17/2024 8:16 AM EDT): We discussed option for second opinion at [facility]. He is satisfied with his care locally but can reach out to request this if desired. Class 2 severe obesity due t o excess calories with serious comorbidity and body mass index (BMI) of 35.0 to 35.9 in adult 07/17/2024 Assessment & Plan (07/17/2024 8:16 AM EDT): Epistaxis 01/18/2024 Medicare annual wellness visit, subsequent 07/14 Assessment & Plan (07/17/2024 8:16 AM EDT): Immunizations are up to date. Used shared decision making model, he requests to continue monitoring PSA and would like to repeat labs this year. Colonoscopy due 11/2024; referral placed. Continue regular dental and eye care. Assessment & Plan (07/15/2023 9:12 AM EDT): Immunizations are up to date. Eligible for another Covid vaccine at the pharmacy if desired. He requests screening PSA which is ordered; he has chronic nocturia x 3 improved if he stops drinking early in the evening. PSA was normal in 2019. Next screening colonoscopy 2024. Labs as below. Continue regular dental and eye care. Witnessed episode of apnea 07/15/2023 Assessment & Plan (07/17/2024 8:16 AM EDT): He was not outreached last year. I have placed another referral to sleep medicine and will track. Orders: Ambulatory referral to [facility] Sleep Medicine Assessment & Plan (01/18/2024 8:21 AM EDT): Given sleep disruption and witnessed apnea I encouraged him to schedule the sleep medicine consult. We discussed treatment of JUSTICE and he is not sure that he would be able to tolerate the mask but is willing to have a consult and do the study. History of pulmonary embolism 07/12/2022 Overview (07/12/2022): Provoke 2020 after rotator cuff repair. Negative coagulability work up through cardiology. Diverticulosis 07/06/2021 History of COVID-19 07/06/2021 Overview (07/06/2021): 04/2020 S/P rotator cuff repair 10/10/2020 Bilateral renal cysts 10/10/2020 Assessment & Plan (07/15/2023 9:10 AM EDT): S/P work up through urology; they recommended no further monitoring. Essential hypertension 09/11/2020 Assessment & Plan (07/17/2024 8:16 AM EDT): Blood pressure is at goal today. Continue current regimen. Update labs (he had coffee with milk this morning). Orders: CBC; Future Lipid panel; Future Comprehensive metabolic panel; Future Assessment & Plan (01/18/2024 8:20 AM EDT): Well controlled today. Continue lisinopril. Assessment & Plan (07/15/2023 9:11 AM EDT): Well controlled. Continue lisinopril. Assessment & Plan (01/12/2023 8:22 AM EDT): Well controlled on my check. Continue current medications. Follow up q6 months. Assessment & Plan (10/14/2022 6:46 PM EDT): -Blood pressure is well controlled, hold lisinopril and Toprol-XL for now, allow permissive hypertension Assessment & Plan (09/11/2020 8:47 PM EDT): Chronic and well controlled on lisinopril 5mg daily and metoprolol 25mg daily Peripheral polyneuropathy 10/17/2019 Overview (10/17/2019): EMG (11/2014): chronic severe axonal and demyelinating sensory and peripheral neuropathy. Chronic left lower lumbar radiculopathy. Assessment & Plan (07/17/2024 8:16 AM EDT): Adequately managed with gabapentin TID. The extra 100 mg at bedtime made him feel poorly. Assessment & Plan (01/18/2024 8:22 AM EDT): Improved with use of topical cream and gabapentin TID. We discussed continued avoidance of alcohol, limitation of caffeine for sleep. We discussed sleep hygiene if he wakes in the night. He is amenable to dose titration of gabapentin with his evening dose in hopes that this will improve sleep. Directions reviewed. If he feels too tired in the morning, call. We discussed pregabalin but he is amenable to titrating gabapentin for now. Assessment & Plan (07/15/2023 9:11 AM EDT): Adequately managed with gabapentin 300 mg TID. Continue the same. Assessment & Plan (01/12/2023 8:24 AM EDT): Improved with TID gabapentin but still with more severe symptoms at times. He is also experiencing sleep disturbance. Sleep hygiene discussed. He can try increasing to 300 mg BID (AM and PM) and 600 mg at bedtime. If this is more effective, he will send a message so I can adjust the quantity of his prescription. PAF (paroxysmal atrial fibrillation) 05/07/2019 Overview (05/09/2019): S/P biatrial MAZE procedure 03/2017 ([facility] Assessment & Plan (07/17/2024 8:16 AM EDT): He denies palpitations, SOB, exercise intolerance. He endorses some weight gain and plans to work on this. Follow up with cardiology as scheduled. Continue anticoagulation and BB. Assessment & Plan (01/18/2024 8:20 AM EDT): Follow up with Dr. Hargrove next month. Continue anticoagulation. We discussed treatments for epistaxis including nasal saline, Aquaphor at bedtime. Call with prolonged bleeding. Continue BB. Assessment & Plan (07/15/2023 9:10 AM EDT): S/P MAZE in 2017. He is not aware of irregular heart beat, denies palpitations. Encouraged to monitor at home and call for sooner cardiology appointment with SOB, exercise intolerance, palpitations. Continue BB, high intensity statin, Eliquis. Assessment & Plan (01/12/2023 8:23 AM EDT): Now on Eliquis which he tolerates. He continues on beta jonelle and high dose statin therapy. Follow with Dr. Hargrove annually, sooner as needed. Assessment & Plan (10/14/2022 6:47 PM EDT): -Patient appears to be back in atrial fibrillation -Started on Eliquis -Toprol-XL on hold for now for permissive hypertension but if heart rate is trending up will restart Assessment & Plan (09/11/2020 8:42 PM EDT): S/p biatrial MAZE procedure in March 2017. Following with Dr. Cullen, cardiology, at [facility]. Currently on asa 81mg daily for anticoagulation. Will hold this medication 7 days prior to surgery. -EKG today shows first degree AV block 2/2 Maze procedure. will obtain previous EKG from cardiology for comparison. Patient states he just saw his methods analyst for his annual check up and had repeat EKG/echo done. S/P MVR (mitral valve repair) 05/20/2017 Overview (05/09/2019): Last echo 06/2018: EF 60-65%, mild mitral regurgitation, mitral ring in place. Assessment & Plan (07/17/2024 8:16 AM EDT): Non-rheumatic mitral regurgitation 03/21/2017 Resolved Problems Problem Noted Date Diagnosed Date Resolved Date Chronic cough 07/15/2023 07/17/2024 Assessment & Plan (01/18/2024 8:22 AM EDT): Resolved. Call with recurrence. Assessment & Plan (07/15/2023 9:11 AM EDT): Lungs are clear, O2 saturation is good. He endorses PND and I recommended that he start by increasing Flonase to BID dosing and if cough has not improved in a month we will proceed to chest CT. He agrees. Confusion 10/18/2022 07/15/2023 Overview (01/12/2023): Presumed TIA 09/2022; hospitalized at [facility]. Imaging was negative. Assessment & Plan (01/12/2023 8:21 AM EDT): No recurrence of symptoms. He will continue to monitor for the same. Assessment & Plan (10/18/2022 1:13 PM EDT): Acute episode of confusion on 10/12 and facial numbness on 10/14. He denies recurrence of symptoms since discharge. No rash to suggested Lyme but given recent tick bite will attempt to add on Lyme test. Platelet count was normal last week with normal ESR. He will continue on Eliquis and atorvastatin and will call for a follow up with cardiology. We discussed symptoms that would warrant return to the ER and he verbalizes understanding. Numbness and tingling of left side of face 10/14/2022 01/18/2024 Assessment & Plan (10/14/2022 7:03 PM EDT): -Patient presented with an episode of transient global amnesia on 10/12 while [address] his truck he had an episode of confusion where he thought he was on a different road and it took him several minutes to realize where he was and how he got there. This morning at around 9 AM patient developed left-sided facial numbness and tingling including left side of his tongue. By the time he presented to the ED symptoms have almost completely resolved. He denies any new visual changes, no slurred speech, no facial droop, no unilateral weakness. -CT head and CTA head and neck showed no acute pathology -Follow up MRI with CISS or other cranial nerve sequence and coronal thin cuts through the brainstem -Follow up TTE with bubble study -Will discuss with tele neuro once imaging results available -Monitor on tele -Follow up HbA1c, TSH, ESR, CRP, lipid panel -Start high-dose statin -Start Eliquis Bat bite of finger 08/06/2021 Need for post exposure prophylaxis for rabies 08/07/1901/08/2022 Need for prophylactic vaccin ation against Streptococcus pneumoniae (pneumococcus) 07/06/2021 01/08/2022 Heartburn 07/06/2021 07/15/2023 Pulmonary embolism and infarction 10/10/2020 07/12/2022 Complete tear of left rotator cuff 09/11/2020 07/12/2022 Assessment & Plan (09/11/2020 8:46 PM EDT): Complete tear of the left supraspinatous. Following with [facility] and plans to undergo arthroscopic repair on 09/19/[address] Mclean. Patient is average risk for severe complications due to surgery. Encounters Date Type Department Care Team Description 03/16/[address] [place] [address] Emmanuel Lanza CNP Medication Refill 03/14/2025 11:30 AM EST - 03/14/2025 12:00 PM EST Surgery [facility] Admitting Dept Virtual Department [address] [place] [id number] Raghu Lu MD ESOPHAGOGASTRODUODENOSCOPY 03/14/2025 11:18 AM EST Anesthesia Event [facility] Admitting [facility] Virtual Department [address] [place] [id number] David Man MD, LAZARO 03/14/2025 10:22 AM EST - 03/14/2025 1:02 PM EST Hospital Encounter [facility] Virtual Department [address] [place] [id number] Raghu Lu MD Discharge Disposition: Home or Self Care 03/14/2025 Procedure Pass [facility] Admitting [facility] Virtual Department [address] [place] [address] 03/05/2025 12:15 PM EST Pre-Admission Testing Pre Procedure Evaluation [address] [place] [address] Raghu Lu MD from Last 3 Months Immunizations Immunization Administration Dates Next Due COVID-19 (Pre-02/21) Pfizer Vaccine, mRNA, PF 07/12/2020,06/21/2020 COVID-19 (Pre-02/21) Pfizer Vaccine, mRNA, raj-sucrose, PF 02/09/2022,08/02/2021 INFLUENZA, SPLIT VIRUS, TRIV ALENT W/ PRESERVATIVE IM 03/13/2015 Influenza High-Dose Quadriva lent Preservative Free IM 02/09/2022 Influenza High-Dose Trivalen t Preservative Free IM 01/15/2024 Influenza Quadrivalent Adjuv anted Preservative Free IM 01/08/2023 Influenza Quadrivalent Prese rvative Free IM 01/19/2020 Influenza Quadrivalent w/ Pr eservative IM 02/06/2019,01/18/2018,01/28/2017,02/15 Influenza, Unspecified Formulation 01/17/2021, Pneumococcal conjugate PCV13 11/21/2019 Pneumococcal polysaccharide PPSV23 07/06/2021 RSV Vaccine (monovalent, adjuvanted) 02/18/2023 Rabies Fibroblast Culture 08/20/2021,,08/09/2021,08/06 Rabies Immune Globulin 08/06/2021 Rabies Unspecified Formulation 08/20/2021,2021 Tdap 08/06/2021,12/18/2014 Zoster recombinant 03/24/2021,12/07/2020 Family History Medical History Relation Comments Aneurysm Brother Aortic Factor V Leiden deficiency Brother Transient ischemic attack Brother PFO cl osure Colon polyps Daughter Cancer Father Former smoker. 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 Pulmonary embolism Father Alzheimer's disease Mother Diabetes Mother Stroke Mother Breast cancer Neg Hx Colon cancer Neg Hx Heart attack Neg Hx Prostate cancer Neg Hx Relation Status Comments Brother Alive Daughter Alive Father (Age 91) Maternal Grandfather Maternal Grandmother Mother (Age 86) Paternal Grandfather Paternal Grandmother Social History Tobacco Use Types Packs/Day Years Used Date Smoking Tobacco: Never Smokeless Tobacco: Never Comments: smoked but onur t age 29. Alcohol Use Standard Drinks/Week Comments No 0 (1 standard drink = 0.6 oz pur e alcohol) nonce since 2014 Child or Family Care Answer Date Record ed Do you have problems with on e of the following making it difficult for you to work, study, or receive health care? No 10/07/2020 Education Answer Date Recorded Are you interested in more education? Not on ludivina e 10/12/2022 Are you concerned about learning? Not on file 10/12/2022 No 10/12/2022 No 10/12/2022 Food Answer Date Recorded Within the past 6 months we worried whether our food would run out before we got money to buy more. Never True 10/07/2020 Within the past 6 months the food we bought just didn't last and we didn't have enough money to get more. Never True Residential Stability Answer Date Recor ded What is your housing situation today? I have kenn beaulieu 10/07/2020 How many times have you move d in the past 12 months? Zero (I did not move) 10/07/2020 06 Are you worried that in t he next 2 months, you may not have your own housing to live in? No 10/07/2020 Paying for Meds Answer Date Recorded Do you have trouble paying for medicines? No 10/07/2020 Paying Utility Bills Answer Date Record ed Do you have trouble paying your heating or elect ricity bill? No 10/07/2020 Transportation Answer Date Recorded Has the lack of transportati on kept you from medical appointments or from getting medications? No 10/07/2020 Unemployment Answer Date Recorded Are you currently unemployed or working on a part-time or temporary basis, and looking for work? No 10/07/2020 Digital Access Answer Date Recorded No 09/22/2022 No 09/22/2022 Reliable internet access at home? Not on file 09/22/2022 Device with a working camera? Not on file 05 / Intimate Partner Violence Answer Date R ecorded Are you denied basic needs s uch as food, clothing, or medical care? No 03/14/2025 In the past 12 months have y ou been in a relationship with a person who hurts, threatens, or tries to control you? No 03/14/2025 Are you denied basic needs s uch as food, clothing, or medical care? No 03/14/2025 In the past 12 months have y ou been in a relationship with a person who hurts, threatens, or tries to control you? 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 Not on file Not on file Last Filed Vital Signs Vital Sign Reading Time Taken Comments Blood Pressure 144/95 03/14/2025 12:05 PM EST Pulse 72 03/14/2025 12:05 PM EST Temperature 36.3 C (97.3 F) 03/14/2025 11:48 AM EST Respiratory Rate 12 03/14/2025 12:05 PM EST Oxygen Saturation 98% 03/14/2025 12:05 PM EST Inhaled Oxygen Concentration 60% 03/21/2017 1 0:00 PM EST Weight 114.8 kg (253 lb) 03/06/2025 11:47 AM EST Height 180.3 cm (5' 11 ) 03/06/2025 11:47 AM EST Body Mass Index 35.29 03/06/2025 11:47 AM EST Plan of Treatment Upcoming Encounters Date Type Department Care Team (Late st Contact Info) Description 07/19/2025 8:00 AM EDT Office Visit [facility] Medicine [address] [place] [address] [place] [address] Emmanuel aLnza, MANSOOR [address] [facility] [place] [address] Health Maintenance Due Date Last Done Comments COLOGUARD 1999 FIT TEST 1999 FOBT 1999 SIGMOIDOSCOPY 1999 VIRTUAL COLONOSCOPY 1999 COVID-19 VACCINE ( season) 2025 01/13/2025, 01/15/2024, 01/30/2023, Additional history exists BLOOD PRESSURE 03/31/2025 09/28/2024 DEPRESSION SCREENING 07/10/2025 07/10/2024 CREATININE LEVEL 07/17/2025 07/17/2024, , 10/14/2022, Additional history exists POTASSIUM LEVEL 07/17/2025 07/17/2024, 06/30, 10/14/2022, Additional history exists LIPID PANEL 07/17/2029 07/17/2024, 10/01, 10/15/2022, Additional history exists Adult Td,Tdap Booster 08/07/2031 08/06/2021, 015 COLONOSCOPY 03/14/2032 03/14/2025, 11/30, 08/11/2007 COLORECTAL CANCER SCREENING 03/14/2032 HEPATITIS C SCREENING Completed 05/07/2019, 020 ZOSTER VACCINES Completed 03/24/2021, 12/07/2020 PNEUMOCOCCAL VACCINES (50+ years) Completed 07/06/2021, 11/21/2019 RSV VACCINE Completed 02/18/2023 INFLUENZA VACCINE Completed 01/13/2025, , 01/08/2023, Additional history exists SMOKING STATUS SCREENING (Once After 26 Yrs) Completed 03/06/2025 HEPATITIS A VACCINES Aged Out No long er eligible based on patient's age to complete this topic HIB VACCINES Aged Out No longer eligi ble based on patient's age to complete this topic MENINGOCOCCAL VACCINES (ACWY) Aged Out No longer eligible based on patient's age to complete this topic MENINGOCOCCAL VACCINES (B) Aged Out N o longer eligible based on patient's age to complete this topic Medical Devices Implanted Type Area Sales Person Device Identifier Shelf Expiration Date Model / Serial / Lot Ring Annuloplasty 32mm Heart Mitral Physiologic Ea - [id number] Implanted:Qty: 1 on 03/21/2017 by Jazmín Motley MD at [facility] Heart [employer] 12/27/2021 [id number] / [id number] / Description:mitral valve Pratt Suture 4.5mm Arthroscopy Reelx Stt Peek Ss Core Knotless Shapr Tip Expandable Bx/5ea - [id number] Implanted:Qty: 3 on 09/19/2020 by Socrates Mclean DO at [facility] Left: Acromial Process [employer] 07/08/2022 [id number] / / [id number] Kit Pratt 4.75mm Suture Healicoil Regensorb Repair 3 Sutures Kt/3 - [id number] Implanted:Qty: 2 on 09/19/2020 by Socrates Mclean DO at [facility] Left: Acromial Process [employer] 05/13/2023 [id number] / / [id number] Procedures Procedure Name Priority Date/Time Associated Diagnosis Comments TISSUE EXAM Routine 03/14/2025 11:24 AM EST [place] COLSC FLX W/RMVL OF TUMOR POLYP LESION SNARE TQ 03/14/2025 11:17 AM EST Dysphagia, pharyngoesophageal phase Hx of colonic polyps Special Needs Hist TIA(no residual); MV repair(Dr Cullen),hist A-flutter; on Eliquis(instructed by office); wears hearing aids [place] COLONOSCOPY W/BIOPSY SINGLE/MULTIPLE 03/14/2025 11:17 AM EST Dysphagia, pharyngoesophageal phase Hx of colonic polyps Special Needs Hist TIA(no residual); MV repair(Dr Cullen),hist A-flutter; on Eliquis(instructed by office); wears hearing aids [place] COLONOSCOPY FLX DX W/HECTOR J SPEC WHEN PFRMD 03/14/2025 11:17 AM EST Dysphagia, pharyngoesophageal phase Hx of colonic polyps Special Needs Hist TIA(no residual); MV repair(Dr Cullen),hist A-flutter; on Eliquis(instructed by office); wears hearing aids [place] EGD ABLATE TUMOR POLYP/LESION W/DILATION& WIRE 03/14/2025 11:17 AM EST Dysphagia, pharyngoesophageal phase Hx of colonic polyps Special Needs Hist TIA(no residual); MV repair(Dr Cullen),hist A-flutter; on Eliquis(instructed by office); wears hearing aids [place] EDG TRANSORAL BIOPSY SINGLE/MULTIPLE 03/14/2025 11:17 AM EST Dysphagia, pharyngoesophageal phase Hx of colonic polyps Special Needs Hist TIA(no residual); MV repair(Dr Cullen),hist A-flutter; on Eliquis(instructed by office); wears hearing aids [place] ESOPHAGOGASTRODUODENOSCOP Y TRANSORAL DIAGNOSTIC 03/14/2025 11:17 AM EST Dysphagia, pharyngoesophageal phase Hx of colonic polyps Special Needs Hist TIA(no residual); MV repair(Dr Cullen),hist A-flutter; on Eliquis(instructed by office); wears hearing aids ENDOSCOPY PROCEDURE 03/14/2025 11:11 AM EST ENDOSCOPY, COLON 03/14/2025 11:10 AM EST LIPID PANEL Routine 07/17/2024 8:22 AM EDT Essential hypertension COMPREHENSIVE METABOLIC PANE L (CMP) Routine 07/17/2024 8:22 AM EDT Essential hypertension HEPATITIS C ANTIBODY, QUALITATIVE Routine 05/07/2019 11:19 AM EST Encounter for hepatitis C screening test for low risk patient from Last 3 Months or Most Recently Relevant to Health Maintenance Results * Tissue Exam (03/14/2025 11:24 AM EST) Final Pathologic Diagnosis A. STOMACH, BIOPSY: No pathologic abnormality. B. GASTROESOPHAGEAL JUNCTION, BIOPSY: Squamocolumnar junction with focal mild inactive chronic gastritis. No evidence of complete intestinal metaplasia or dysplasia. Note: Immunohistochemical stains for H. pylori are performed on the gastric biopsies and DO NOT DEMONSTRATE organisms with the morphologic characteristics of Helicobacter. 12:24 PM EST [facility] at 1224 EST Clinical History Pre-op diagnosis: Dysphagia, pharyngoesophageal phase [R13.14 EGD: Gastritis 12:24 PM [facility] Gross Description A. STOMACH: Received in formalin are 2 irregular freeman-pink soft tissue fragments measuring on average 0.3 x 0.3 x 0.2 cm which are submitted in toto in a single cassette labeled A1. B. GASTROESOPHAGEAL JUNCTION: Received in formalin are 2 irregular freeman-pink soft tissue fragments measuring on average 0.3 x 0.3 x 0.2 cm which are submitted in toto in a single cassette labeled B1. 12:24 PM [facility] Grossed By Manish Ngo 12:24 PM [facility] Result Priority Level Routine 12:24 PM [facility] Disclaimer By their signature ray llanose, the pathologist listed as making the Final Diagnosis certifies that they have personally reviewed the case and confirmed the diagnosis. All slides and stains were of sufficient quality to establish the diagnosis, unless otherwise stated. Due to loss of elastic tension and/or tissue shrinkage in formalin, the clinical sizes of tissue specimens may be larger than those provided in this report. 12:24 PM [facility] Procedure ESOPHAGOGASTRODUODEN OSCOPY COLONOSCOPY 12:24 PM [facility] Gastrointestinal Tissue (Stomach) 03/14/2025 11:24 AM EST 03/14/2025 1:09 PM EST Comment:Pre-op diagnosis: Dysphagia, pharyngoesophageal phase [R13.14] Hx of colonic polyps [Z86.0100] Gastrointestinal Tissue (Gastroesophageal Junction) 03/14/2025 11:25 AM EST 03/14/2025 1:09 PM EST Comment:Pre-op diagnosis: Dysphagia, pharyngoesophageal phase [R13.14] Hx of colonic polyps [Z86.0100] us Raghu Lu MD LAB PATHOLOGY ORDERABLES Fin al Result [address] [address] * ENDOSCOPY PROCEDURE (03/14/2025 11:11 AM EST) Narrative Transcriptions Raghu Lu MD - 03/14/2025 11:11 AM EST [facility] Patient Name: Jonnathan Barry Attending MD:: RAGHU LU MD, Procedure Date: 03/14/2025 11:11AM Date of : 1955 Age: 69 Admit Type: Outpatient Gender: Male Room: [place] [address] Referring MD: EMMANUEL LANZA Exam Type: Upper GI endoscopy Indications: Dysphagia Medications: Monitored Anesthesia Care Procedure: Informed consent was obtained from the patientafter discussion of the indications, limitations, alternatives, benefits, and risks of the procedure. Risks specifically discussed include but are not limited to medication reactions, missed lesions, bleeding, perforation, or the need for emergent surgery. Throughout the procedure, the patient's blood pressure, pulse, end-tidal CO2, and oxygensaturations were monitored continuously. The Endoscope was introduced through the mouth, and advanced to the third part of duodenum. The upperGI endoscopy was accomplished without difficulty. The patient tolerated the procedure well. Complications: No immediate complications. Estimated blood loss:None. Findings: A small hiatal hernia was present. The Z-line was variable and was found at the gastroesophageal junction. A non-obstructing Schatzki ring was found at the gastroesophageal junction. A TTS dilator was passed through the scope. Dilation with an 18-19-20 mm balloon dilator was performed to 20 mm. A guidewire was placed and the scope was withdrawn. Dilationwas performed with a Savary dilator with no resistanceat 17 mm. Biopsies were taken with a cold forceps for histology. The gastroesophageal junction, cardia and gastric fundus were normal. Localized mild inflammation characterized byerythema was found in the gastric antrum. Biopsies weretaken with a cold forceps for histology. The duodenal bulb, second portion of the duodenumand third portion of the duodenum were normal. Impression: - Small hiatal hernia. - Z-line variable, at the gastroesophagealjunction. - Non-obstructing Schatzki ring. Dilated.Biopsied. - Normal gastroesophageal junction, cardia andgastric fundus. - Gastritis. Biopsied. - Normal duodenal bulb, second portion of theduodenum and third portion of the duodenum. Recommendation: - Discharge patient to home. - Resume previous diet. - Continue present medications. - Await pathology results. - Resume Eliquis (apixaban) at prior dose today. RAGHU LU MD 03/14/2025 11:50:04 AM This report has been signed electronically. Number of Addenda: 0 Note Initiated On: 03/14/2025 11:11 AM Procedure Code(s): --- Professional --- 62423, Esophagogastroduodenoscopy, flexible, transoral; withinsertion of guide wire followed by passage of dilator(s) through esophagusover guide wire 91083, Esophagogastroduodenoscopy, flexible, transoral; with transendoscopic balloon dilation of esophagus (less than 30 mmdiameter) --- Technical --- 50322, Esophagogastroduodenoscopy, flexible, transoral; withinsertion of guide wire followed by passage of dilator(s) through esophagusover guide wire 89798, Esophagogastroduodenoscopy, flexible, transoral; with transendoscopic balloon dilation of esophagus (less than 30 mmdiameter) Diagnosis Code(s): --- Professional --- K44.9, Diaphragmatic hernia without obstruction or gangrene K22.89, Other specified disease of esophagus K22.2, Esophageal obstruction K29.70, Gastritis, unspecified, without bleeding R13.10, Dysphagia, unspecified --- Technical --- K44.9, Diaphragmatic hernia without obstruction or gangrene K22.89, Other specified disease of esophagus K22.2, Esophageal obstruction K29.70, Gastritis, unspecified, without bleeding R13.10, Dysphagia, unspecified CPT copyright 2021 [employer]. All rights reserved. The codes documented in this report are preliminary and upon pipelaying fitter reviewmay be revised to meet current compliance requirements. Procedure Date: 03/14/2025 11:11:[address] [place] [address] us Emmanuel Lanza [facility] GI PROCEDURE ORDERABLES F inal Result * ENDOSCOPY, COLON (03/14/2025 11:10 AM EST) Narrative Transcriptions Raghu Lu MD - 03/14/2025 11:10 AM EST [facility] Patient Name: Jonnathan Olena Attending MD:: RAGHU LU MD, Procedure Date: 03/14/2025 11:10AM Date of : 1955 Age: 69 Admit Type: Outpatient Gender: Male Room: [place] [address] Referring MD: EMMANUEL LANZA Exam Type: Colonoscopy Indications: High risk colon cancer surveillance: Personalhistory of colonic polyps Medications: Monitored Anesthesia Care Procedure: Informed consent was obtained from the patientafter discussion of the indications, limitations, alternatives, benefits, and risks of the procedure. Risks specifically discussed include but are not limited to medication reactions, missed lesions, bleeding, perforation, or the need for emergent surgery. Throughout the procedure, the patient's blood pressure, pulse, end-tidal CO2, and oxygensaturations were monitored continuously. The Olympus adult variable colonoscope CF-BI886P #3 was introduced through the anus and advanced to the terminal ileum. The colonoscopy was performedwithout difficulty. The patient tolerated the procedurewell. The quality of the bowel preparation was good. Anatomical landmarks were photographed. Complications: No immediate complications. Estimated blood loss:None. Findings: The perianal and digital rectal examinations were normal. Multiple small-mouthed diverticula were found inthe sigmoid colon and descending colon. The rectum, recto-sigmoid colon, sigmoid colon, descending colon, splenic flexure, transversecolon, hepatic flexure, ascending colon, cecum,appendiceal orifice, ileocecal valve, ileum, rectum (on retroflexion) and ascending colon (on retroflexion) appeared normal. Impression: - Diverticulosis in the sigmoid colon and in the descending colon. - The rectum (on retroflexion), ascending colon (on retroflexion), rectum, sigmoid colon, descending colon, splenic flexure, transverse colon, hepatic flexure, ascending colon, cecum, recto-sigmoidcolon, ileocecal valve, appendiceal orifice and terminal ileum are normal. - No specimens collected. Recommendation: - Discharge patient to home. - High fiber diet. - Continue present medications. - Repeat colonoscopy in 7 years for surveillance. - You have diverticulosis so please eat a high fiber diet. RAGHU LU MD 03/14/2025 11:51:48 AM This report has been signed electronically. Number of Addenda: 0 Note Initiated On: 03/14/2025 11:10 AM Procedure Code(s): --- Professional --- 37498, Colonoscopy, flexible; diagnostic, including collection of specimen(s) by brushing or washing, when performed (separateprocedure) --- Technical --- 25269, Colonoscopy, flexible; diagnostic, including collection of specimen(s) by brushing or washing, when performed (separateprocedure) Diagnosis Code(s): --- Professional --- Z86.010, Personal history of colonic polyps K57.30, Diverticulosis of large intestine without perforation or abscess without bleeding --- Technical --- Z86.010, Personal history of colonic polyps K57.30, Diverticulosis of large intestine without perforation or abscess without bleeding CPT copyright 2021 [employer]. All rights reserved. The codes documented in this report are preliminary and upon pipelaying fitter reviewmay be revised to meet current compliance requirements. Procedure Date: 03/14/2025 11:10:09 AM [address] [place] [address] Emmanuel Lanza CNP GI PROCEDURE ORDERABLES F inal Result * (ABNORMAL) Comprehensive metabolic panel (07/17/2024 8:22 AM EDT) SODIUM 142 133 - 146 mmol/L [facility] POTASSIUM 4.9 3.3 - 5.1 mmol/L [facility] CHLORIDE 106 96 - 108 mmol/L [facility] CO2 29 21 - 35 mmol/L [facility] BUN 17 6 - 19 mg/dL [facility] CREATININE 1.00 0.5 - 1.5 mg/dL [facility] GLUCOSE 113(H) 70 - 99 mg/dL [facility] ALBUMIN 4.2 3.9 - 4.8 g/dL [facility] TOTAL PROTEIN 6.8 6.5 - 8.0 g/dL [facility] CALCIUM 9.7 8.4 - 10.3 mg/dL [facility] ALKALINE PHOSPHATASE 67 39 - 117 U/L [facility] TOTAL BILIRUBIN 0.7 0.0 - 1.2 mg/dL [facility] AST 23 0 - 37 U/L [facility] ALT 20 0 - 40 U/L [facility] GLOBULIN 2.6 1 - 4.8 g/dL [facility] EGFR 81 >59 mL/min/1.7 3m2 [facility] Comment:Estimated glomerular filtration rate calculated using the CKD-EPI refit equation. ANION GAP 12 10 - 20 mmol/L [facility] Blood 07/17/2024 8:22 AM EDT 07/17/2024 8:24 AM EDT [facility] LAB BLOOD BKR ORDERABLES Final Result Performing Organization Address [facility] Co de Phone Number [address] [address] * (ABNORMAL) Lipid panel (07/17/2024 8:22 AM EDT) HDL 42 mg/dL [facility] Comment: Interpretation <40 mg/dL: Low HDL cholesterol (major risk factor for CHD) Greater than or equal to 60 mg/dL: High HDL cholesterol ( negative risk factor for CHD) HDL - cholesterol is affected by a number of factors, e.g. smoking, excerise, hormones, sex and age. CHOLESTEROL 104 0 - 240 mg/dL [facility] TRIGLYCERIDES 139 30 - 160 mg/dL [facility] LDL 34(L) 50 - 129 mg/dL [facility] Comment: LDL levels in terms of risk for coronary heart disease: <100 mg/dL: Optimal 100-129 mg/dL: Near or above optimal 130-159 mg/dL: Borderline high 160-189 mg/dL: High >190 mg/dL: Very High CARDIAC RISK RATIO 2.5(L) 3.4 - 5.0 C [facility] Blood 07/17/2024 8:2 2 AM EDT 07/17/2024 8:24 AM EDT [facility] LAB BLOOD BKR ORDERABLES Final Result Performing Organization Address City/[facility]/ZIP Co de Phone Number [address] [address] * Hepatitis C antibody, qualitative (05/07/2019 11:19 AM EST) HCV NON-REACTIV E NON-REACTI VE [facility] Blood 05/07/2019 11:1 9 AM EST 05/07/2019 11:21 AM EST us Chalice Santorelli [facility] LAB BLOOD BKR ORDERABLES Final Result [address] [address] from Last 3 Months or Most Recently Relevant to Health Maintenance Insurance [employer] MEDICARE SUPPLEMENT MEDICARE PART A & B [employer] MEDICARE SUPPLEMENT MEDICARE PART A & B [facility] MEDICARE SUPPLEMENT MEDICARE PART A & B [facility] MEDICARE SUPPLEMENT MEDICARE PART A & B [facility] MEDICARE SUPPLEMENT MEDICARE PART A & B [employer] MEDICARE SUPPLEMENT MEDICARE PART A & B [employer] MEDICARE SUPPLEMENT MEDICARE PART A & B [facility] MEDICARE SUPPLEMENT MEDICARE PART A & B [facility] MEDICARE SUPPLEMENT MEDICARE PART A & B Advance Directives For more information, please contact: [phone] (9AM - 5PM Jonelle/[facility], Tuesday-Tuesday) Documents on File Type Date Recorded Patient Contract Recruiter Expl anation Healthcare Proxy 05/03/2017 2:13 PM PROXY * Full Code (Latest Code Status on File) Date Activated Date Inactivated Comments 10/14/2022 6:34 PM Question Answer Comments Code Status Confirmed With: Patient * Full Code (Presumed) Date Activated Date Inactivated Comments 03/21/2017 12:53 PM 03/26/2017 12:43 PM Care Teams General Engineer Relationship Specialty Start Date End Date Emmanuel Lanza CNP [address] [facility] [place] [address] [email or web address] PCP - General Family Medicine 04/20/19 Jagruti Jiménez MD [address] [facility] [place] [address] [email or web address] 05/07/19 Michael Hargrove MD [address] [place] [address] Cardiology 10/10/20 Zoila Hart MD [address] [place] [address] Dermatology 07/15/23 Emmanuel Lanza CNP [address] [facility] [place] [address] [email or web address] Insurance Assigned Provider 08/05/24 Additional Source Comments The information contained in this document represents components of the legal health record. It is not the complete legal health record.[facility]
--- OUTSIDE RECORDS SUMMARY | 2025-03-21 20:31 | XMS_ITS | Encounter Summary ---
Author Organization [facility] Address [address] [place] [address] [place] [address] Phone Care Team Providers Care Flight Engineer Name Role Phone Gutierrez Guadalupe DO Primary Care Provider [phone] Michael Hargrove MD Unavailable [phone] Dallas Kirby CNP Primary Care Provider Richardson Mckeon MD Unavailable Jagruti Jiménez MD Unavailable [phone] Zoila Hart MD Unavailable [phone] Michael Hargrove MD Unavailable Minerva Mcmillan PA-C Unavailable Dorian Arana DO Unavailable [phone] Rianna Reina OT Unavailable Zoila Hart MD Unavailable [phone] Dallas Kirby CNP Unavailable Encounter Details Date Type Department Care Team (Late st Contact Info) Description 12/09/2017 Ancillary Orders [facility], X-Ray - [facility] [address] [place] [address] Juan José Rivera MD [address] [place] [address], [address] [place] [address] Social History Tobacco Use Types Packs/Day Years [...] Description 07/19/2025 8:00 AM EDT Office Visit [address] [address] Dallas Kirby CNP [address] [place] [address], [address] [place] [address] [email or web address] documented as of this encounter Visit Diagnoses Not on filedocumented in this encounter Additional Health Concerns Infection Onset Date Last Indicated Resolved Time CoV-Exposed Comment:Recent close contact 04/28/2020 04/28/2020 05/12/2020 1:24 AM EST documented as of this encounter Care Teams Flight Engineer Relationship Specialty Start Date End Date Gutierrez Guadalupe DO [address] [place] [address] PCP - General Internal Medicine 01/28/17 04/19/19 Dallas Kirby CNP [address] [place] [address], [address] [place] [address] PCP - General Family Medicine 04/20/19 Michael Hargrove MD [address] [place] [address] In Service Educator Cardiology 01/28/17 04/19/19 Richardson Mckeon MD [address] [place] [address], [address] [place] [address] [email or web address] Insurance Assigned Provider 08/06/23 08/05/24 Jagruti Jiménez MD [address] [place] [address], [address] [place] [address] [email or web address] 05/07/19 Zoila Hart MD [address], [place] [address] Dermatology 11/21/19 07/14/23 Michael Hargrove MD [address] [place] [address] Cardiology 10/10/20 Minerva Mcmillan PA-C [address] [place] [address] [email or web address] Physician Instructor Ballroom Dancing Hematology 10/30/20 07/05/21 Dorian Arana DO [address] [place] [address] [email or web address] Primary Oncologist Hematology and Oncology 10/30/20 2 Rianna Reina, OT [address] [place] [address] [email or web address] Transitions Utility AgentOffice Assistance Therapy 10/15/22 10/18/22 Zoila Hart MD [address], [place] [address] Dermatology 07/15/23 Dallas Kirby CNP [address] [facility], [address] [place] [address] Insurance Assigned Provider 08/05/24 documented as of this encounter Additional Source Comments The information contained in this document represents components of the legal health record. It is not the complete legal health record.[facility]
--- OUTSIDE RECORDS SUMMARY | 2025-03-21 20:31 | XMS_ITS | Encounter Summary ---
Author Organization [facility] Address [address] [place] [address] Phone Care Team Providers Care Clay Stain Mixer Name Role Phone Gutierrez Guadalupe DO Primary Care Provider [phone] Michael Hargrove MD Unavailable Dallas Kirby CNP Primary Care Provider [phone] Richardson Mckeon MD Unavailable [phone] Jagruti Jiménez MD Unavailable [phone] Zoila Hart MD Unavailable Michael Hargrove MD Unavailable Minerva Mcmillan PA-C Unavailable [phone] Dorian Arana DO Unavailable [phone] Rianna Reina OT Unavailable [phone] Zoila Hart MD Unavailable [phone] Dallas Kirby CNP Unavailable Encounter Details Date Type Department Care Team (Late st Contact Info) Description 12/01/2017 Procedure Pass [address] [place] [address] Social History Tobacco Use Types Packs/Day Years [...] Description 07/19/2025 8:00 AM EDT Office Visit [facility] Family [address] [place] [address] Dallas Kirby CNP [address] [place] [address], [address] [place] [address] documented as of this encounter Visit Diagnoses Not on filedocumented in this encounter Additional Health Concerns Infection Onset Date Last Indicated Resolved Time CoV-Exposed Comment:Recent close contact 04/28/2020 04/28/2020 05/12/2020 1:24 AM EST documented as of this encounter Care Teams Clay Stain Mixer Relationship Specialty Start Date End Date Gutierrez Guadalupe DO [address] [place] [address] PCP - General Internal Medicine 01/28/17 04/19/19 Dallas Kirby CNP [address] [place] [address], [address] [place] [address] PCP - General Family Medicine 04/20/19 Michael Hargrove MD [address] [place] [address] Medical Facilities Section Director Cardiology 01/28/17 04/19/19 Richardson Mckeon MD [address] [place] [address], [address] [place] [address] [email or web address] Insurance Assigned Provider 08/06/23 08/05/24 Jagruti Jiménez MD [address] [place] [address], [address] [place] [address] [email or web address] 05/07/19 Zoila Hart MD [address] [address] Dermatology 11/21/19 07/14/23 Michael Hargrove MD [address] [place] [address] Cardiology 10/10/20 Minerva Mcmillan PA-C [address] [place] [email or web address] Physician Stain Maker Hematology 10/30/20 07/05/21 Dorian Arana DO [address] [place] [address] [email or web address] Primary Oncologist Hematology and Oncology 10/30/20 2 Rianna Reina, OT [address] [place] [address] [email or web address] Transitions Machine WelderAnimal Caregiver Therapy 10/15/22 10/18/22 Zoila Hart MD [address] [place] [address] Dermatology 07/15/23 Dallas Kirby CNP [address] [place] [address], [address] [place] [address] [email or web address] Insurance Assigned Provider 08/05/24 documented as of this encounter Additional Source Comments The information contained in this document represents components of the legal health record. It is not the complete legal health record.[facility]
--- OUTSIDE RECORDS SUMMARY | 2025-03-21 20:31 | XMS_ITS | Encounter Summary ---
Author Organization [facility] Address [address] [place] [address] Phone Care Team Providers Care Pancake Professional Name Role Phone Dallas Kirby ACQUISITION MARKETING MANAGER Primary Care Provider [phone] Richardson Mckeon MD Unavailable [phone] Jagruti Jiménez MD Unavailable [phone] Zoila Hart MD Unavailable Michael Hargrove MD Unavailable Minerva Mcmillan PA-C Unavailable [phone] Dorian Arana DO Unavailable [phone] Rianna Reina OT Unavailable [phone] Zoila Hart MD Unavailable [phone] Dallas Kirby ACQUISITION MARKETING MANAGER Unavailable [phone] Encounter Details Date Type Department Care Team (Late st Contact Info) Description 12/17/2019 Procedure Pass [facility] Endoscopy Admitting Dept Virtual Department [address] [place] [address] Social History Tobacco Use Types Packs/Day Years [...] Description 07/19/2025 8:00 AM EDT Office Visit [address] [place] [address] Dallas Kirby CNP [address] [facility], [address] [place] [address] [email or web address] documented as of this encounter Visit Diagnoses Not on filedocumented in this encounter Additional Health Concerns Infection Onset Date Last Indicated Resolved Time CoV-Exposed Comment:Recent close contact 04/28/2020 04/28/2020 05/12/2020 1:24 AM EST Assessment Noted Time PHQ-2 Depression Total Score: 0 11/21/19 10:41 AM EDT documented as of this encounter Care Teams Pancake Professional Relationship Specialty Start Date End Date Dallas Kirby CNP [address] [place] [address], [address] [address] PCP - General Family Medicine 04/20/19 Richardson Mckeon MD [address] [place] [address], [address] [place] [address] [email or web address] Insurance Assigned Provider 08/06/23 08/05/24 Jagruti Jiménez MD [address] [place] [address], [address] [place] [address] [email or web address] 05/07/19 Zoila Hart MD [address] [place] [address] Dermatology 11/21/19 07/14/23 Michael Hargrove MD [address] [place] [address] [place] [address] Cardiology 10/10/20 Minerva Mcmillan PA-C [address] [place] [email or web address] Physician Name Plate Stamper Hematology 10/30/20 07/05/21 Dorian Arana DO [address] [place] [address] [email or web address] Primary Oncologist Hematology and Oncology 10/30/20 2 Rianna Reina, OT [address] [place] [address] [email or web address] Transitions Architect MarineProduct Development Intern Therapy 10/15/22 10/18/22 Zoila Hart MD [address] [place] [address] Dermatology 07/15/23 Dallas Kirby CNP [address] [facility] [place] [address] [email or web address] Insurance Assigned Provider 08/05/24 documented as of this encounter Additional Source Comments The information contained in this document represents components of the legal health record. It is not the complete legal health record.[facility]
--- OUTSIDE RECORDS SUMMARY | 2025-03-21 20:31 | XMS_ITS | Encounter Summary ---
Author Organization [facility] Address [facility] In*Situ Architecture [facility] [address] [place] [address] Phone Care Team Providers Care Crap Game Box Person Name Role Phone Guteirrez Guadalupe DO Primary Care Provider [phone] Michael Hargrove MD Unavailable [phone] [place] Kirby CNP Primary Care Provider [phone] Richardson Mckeon MD Unavailable Jagruti Jiménez MD Unavailable Zoila Hart MD Unavailable [phone] Michael Hargrove MD Unavailable [phone] Minerva Mcmillan PA-C Unavailable Dorian Arana DO Unavailable Rianna Reina OT Unavailable [phone] Zoila Hart MD Unavailable [phone] [place] CNP Unavailable Encounter Details Date Type Department Care Team (Latest Contact Info) Description 12/09/2017 Transcribe Orders [facility] Main [address] [place] [address] Juan José Rivera MD 100 [facility], [address] [place] [address] [email or web address] Sensory hearing loss, bilateral (Primary [...] Description 07/19/2025 8:00 AM EDT Office Visit [facility] Medical [facility] [address] [place] [address] [place], MANSOOR 22 [facility], [address] [place] [address] [email or web address] documented as of this encounter Results * Creatinine/eGFR (12/09/2017 8:04 AM EDT) CREATININE 1.10 0.5 - 1.5 mg/dL [facility] EGFR 71 >59 mL/min/1.7 3m2 [facility] Comment:If patient is black, multiply result by 1.159. Estimated glomerular filtration rate calculated using the CKD-EPI equation. Blood 12/09/2017 8:04 AM EDT 12/09/2017 8:07 AM EDT us Juan José Rivera MD LAB BLOOD BKR ORDERABLES Final Result [facility] [address] [place] [address] documented in this encounter Visit Diagnoses Diagnosis Sensory hearing loss, bilateral- Primary documented in this encounter Additional Health Concerns Infection Onset Date Last Indicated Resolved Time CoV-Exposed Comment:Recent close contact 04/28/2020 04/28/2020 05/12/2020 1:24 AM EST documented as of this encounter Care Teams Crap Game Box Person Relationship Specialty Start Date End Date Gutierrez Guadalupe DO [address] [place] [address] PCP - General Internal Medicine 01/28/17 04/19/19 [place] CNP [address] [place] [address], [address] [place] [address] PCP - General Family Medicine 04/20/19 Michael Hargrove MD [address] [place] [address] [place] [address] Liquid Sugar Fortifier Cardiology 01/28/17 04/19/19 Richardson Mckeon MD [address] [place] [address], [address] [place] [address] Insurance Assigned Provider 08/06/23 08/05/24 Jagruti Jiménez MD [address] [place] [address], [address] [place] [address] [email or web address] 05/07/19 Zoila Hart MD [address] [place] [address] Dermatology 11/21/19 07/14/23 Michael Hargrove MD [address] [place] [address] [place] [address] Cardiology 10/10/20 Minerva Mcmillan PA-C [address] [place] [address] Physician Log Pond Worker Hematology 10/30/20 07/05/21 Dorian Arana DO 30 [place] [address] [email or web address] Primary Oncologist Hematology and Oncology 10/30/20 2 Rianna Reina, OT 30 [place] [address] [email or web address] Transitions Gear MachinistLaunderer Hand Therapy 10/15/22 10/18/22 Zoila Hart MD [address] [place] [address] Dermatology 07/15/23 [place] CNP 22 [facility], [address] [place] [address] [email or web address] Insurance Assigned Provider 08/05/24 documented as of this encounter Additional Source Comments The information contained in this document represents components of the legal health record. It is not the complete legal health record.[facility]
--- OUTSIDE RECORDS SUMMARY | 2025-03-21 20:31 | XMS_ITS | Encounter Summary ---
Author Organization [facility] Address [facility] [place] [facility] [address] [place] [address] Phone Care Team Providers Care Security Escort Name Role Phone Gutierrez Guadalupe DO Primary Care Provider [phone] Michael Hargrove MD Unavailable [phone] [place] CNP Primary Care Provider [phone] Richardson Mckeon MD Unavailable Jagruti Jiménez MD Unavailable [phone] Zoila Hart MD Unavailable Michael Hargrove MD Unavailable [phone] Minerva Mcmillan PA-C Unavailable Dorian Arana DO Unavailable [phone] Rianna Reina OT Unavailable Zoila Hart MD Unavailable [place] CNP Unavailable Encounter Details Date Type Department Care Team (Latest Contact Info) Description 12/01/2017 Ancillary Orders Virtual Department 30 [place] [address] Juan José Rivera MD 100 [facility], [address] [place] [address] [email or web address] Sensorineural hearing loss (SNHL) of both ears Social History Tobacco Use Types Packs/Day Years [...] Description 07/19/2025 8:00 AM EDT Office Visit [address] [place] [address] [place] CNP [address] [place] [address], [address] [place] [address] [email or web address] documented as of this encounter Visit Diagnoses Diagnosis Sensorineural hearing loss (SNHL) of both ears documented in this encounter Additional Health Concerns Infection Onset Date Last Indicated Resolved Time CoV-Exposed Comment:Recent close contact 04/28/2020 04/28/2020 05/12/2020 1:24 AM EST documented as of this encounter Care Teams Security Escort Relationship Specialty Start Date End Date Gutierrez Guadalupe DO [address] [place] [address] PCP - General Internal Medicine 01/28/17 04/19/19 [place] CNP [address] [place] [address], [address] [place] [address] PCP - General Family Medicine 04/20/19 Michael Hargrove MD [address] [place] [address] Ground Water Pump Installer Cardiology 01/28/17 04/19/19 Richardson Mckeon MD [address] [place] [address], [address] [place] [address] [email or web address] Insurance Assigned Provider 08/06/23 08/05/24 Jagruti Jiménez MD [address] [place] [address], [address] [place] [address] [email or web address] 05/07/19 Zoila Hart MD [address] [place] [address] Dermatology 11/21/19 07/14/23 Michael Hargrove MD [address] [place] [address] Cardiology 10/10/20 Minerva Mcmillan PA-C [address] [place] [address] [email or web address] Physician Homicide Squad Commanding Officer Hematology 10/30/20 07/05/21 Dorian Arana DO 30 [place] [address] [email or web address] Primary Oncologist Hematology and Oncology 10/30/20 2 Rianna Reina, OT 30 [place] [address] [email or web address] Transitions Make Up GirlDance Historian Therapy 10/15/22 10/18/22 Zoila Hart MD [address] [address] Dermatology 07/15/23 [place] CNP [address] [place] [address], [address] [place] [address] [email or web address] Insurance Assigned Provider 08/05/24 documented as of this encounter Additional Source Comments The information contained in this document represents components of the legal health record. It is not the complete legal health record.[facility]
--- OUTSIDE RECORDS SUMMARY | 2025-03-21 20:32 | XMS_ITS | Encounter Summary ---
Author Organization [facility] Address [address] [place] [address] [place] [address] Phone Care Team Providers Care Veterinary Hospital Attendant Name Role Phone [place] CNP Primary Care Provider [phone] Richardson Mckeon MD Unavailable [phone] Jagruti Jiménez MD Unavailable [phone] Zoila Hart MD Unavailable Michael Hargrove MD Unavailable [phone] Rianna Reina OT Unavailable [phone] Zoila Hart MD Unavailable [place] CNP Unavailable [phone] Encounter Details Date Type Department Care Team (Late st Contact Info) Description 02/04/2022 Procedure Pass [facility], [address] [address] Social History Tobacco Use Types Packs/Day Years Used Date Smoking Tobacco: Never Smokeless Tobacco: Never Comments: smoked but onur t age 29. Alcohol Use Standard Drinks/Week Comments No 0 (1 standard drink = 0.6 oz pur e alcohol) No history of abuse. (2021) Child or Family Care Answer Date Record ed Do you have problems with on e of the following making it difficult for you to work, study, or receive health care? No 10/07/2020 Education Answer Date Recorded Are you interested in help w ith more adult education (for example, completing high school, GED, job training, learning the [place] language, technical skills, or developing parenting skills)? No 10/07/2020 Food Answer Date Recorded Within the past [...] basis, and looking for work? No 10/07/2020 Sex and Gender Information Value Date Recorded [...] EDT Office Visit [facility] [address] [place] [address] [place] CNP 22 [facility], [address] [place] [address] documented as of this encounter Visit Diagnoses Not on filedocumented in this encounter Additional Health Concerns Assessment Noted Time PHQ-2 Depression Total Score: 0 07/07/19 22 9:01 AM EST documented as of this encounter Care Teams Veterinary Hospital Attendant Relationship Specialty Start Date End Date [place] CNP [address] [place] [address], [address] [place] [address] [email or web address] PCP - General Family Medicine 04/20/19 Richardson Mckeon MD [address] [place] [address], [address] [place] [address] [email or web address] Insurance Assigned Provider 08/06/23 08/05/24 Jagruti Jiménez MD [address] [place] [address], [address] [place] [address] [email or web address] 05/07/19 Zoila Hart MD [address] [address] Dermatology 11/21/19 07/14/23 Michael Hargrove MD [address] [place] [address] Cardiology 10/10/20 Rianna Reina, OT [address] [place] [address] [email or web address] Transitions Cranberry Farm SupervisorDiaper Machine Tender Therapy 10/15/22 10/18/22 Zoila Hart MD [address] [place] [address] Dermatology 07/15/23 [place] CNP [address] [place] [address], [address] [place] [address] [email or web address] Insurance Assigned Provider 08/05/24 documented as of this encounter Additional Source Comments The information contained in this document represents components of the legal health record. It is not the complete legal health record.[facility]
--- OUTSIDE RECORDS SUMMARY | 2025-03-21 20:32 | XMS_ITS | Encounter Summary ---
Author Organization [facility] Address [address] [place] [address] [place] [address] Phone Care Team Providers Care Polysomnography Technician Name Role Phone [place] CNP Primary Care Provider [phone] Richardson Mckeon MD Unavailable Jagruti Jiménez MD Unavailable [phone] Zoila Hart MD Unavailable Michael Hargrove MD Unavailable [phone] Rianna Reina OT Unavailable [phone] Zoila Hrat MD Unavailable [place] CNP Unavailable Encounter Details Date Type Department Care Team (Late st Contact Info) Description 10/14/2022 Procedure Pass [facility] [address] [place] [address] Social History Tobacco Use Types Packs/Day Years Used Date Smoking Tobacco: Never Smokeless Tobacco: Never Comments: smoked but onur t age 29. Alcohol Use Standard Drinks/Week Comments No 0 (1 standard drink = 0.6 oz pur e alcohol) No history of abuse. (2022) Child or Family Care Answer Date Record [...] with a working camera? 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 Wish to be (Past 1 Month) No 023 12:25 PM EDT Daniela Gallaghre RN 2. Non-Specific Active Suici abdifatah Thoughts (Past 1 Month) No 10/14/2022 12:25 PM EDT Daniela Gallagher RN 6. Suicidal Behavior (Lifetime) No 12:25 PM EDT Daniela Gallagher RN documented as of this encounter Plan of Treatment Upcoming Encounters Date Type Department Care Team (Late st Contact Info) Description 07/19/2025 8:00 AM EDT Office Visit [facility] [address] [place] [address] [place] CNP [address] [place] [address], [address] [place] [address] [email or web address] documented as of this encounter Visit Diagnoses Not on filedocumented in this encounter Additional Health Concerns Assessment Noted Time PHQ-2 Depression Total Score: 0 07/11/19 23 3:26 PM EST documented as of this encounter Care Teams Polysomnography Technician Relationship Specialty Start Date End Date [place] CNP [address] [place] [address], [address] [place] [address] [email or web address] PCP - General Family Medicine 04/20/19 Richardson Mckeon MD [address] [place] [address], [address] [place] [address] [email or web address] Insurance Assigned Provider 08/06/23 08/05/24 Jagruti Jiménez MD [address] [place] [address], [address] [place] [address] [email or web address] 05/07/19 Zoila Hart MD [address] [place] [address] Dermatology 11/21/19 07/14/23 Michael Hargrove MD [address] [place] [address] [address] [place] [address] Cardiology 10/10/20 Rianna Reina, OT [address] [place] [address] [email or web address] Transitions Truss DesignerRotary Drier Operator Therapy 10/15/22 10/18/22 Zoila Hart MD [address] [place] [address] Dermatology 07/15/23 [place] CNP 22 [facility], [address] [place] [address] [email or web address] Insurance Assigned Provider 08/05/24 documented as of this encounter Additional Source Comments The information contained in this document represents components of the legal health record. It is not the complete legal health record.[facility]
--- OUTSIDE RECORDS SUMMARY | 2025-03-21 20:32 | XMS_ITS | Encounter Summary ---
Author Organization [facility] Address [address] [place] [address] [place] [address] Phone Care Team Providers Care Staffing Program Manager Name Role Phone [place] CNP Primary Care Provider [phone] Richardson Mckeon MD Unavailable [phone] Jagruti Jiménez MD Unavailable [phone] Zoila Hart MD Unavailable [phone] Michael Hargrove MD Unavailable Rianna Reina OT Unavailable [phone] Zoila Hart MD Unavailable [place] CNP Unavailable Encounter Details Date Type Department Care Team (Late st Contact Info) Description 10/14/2022 Procedure Pass [facility], [address] [address] Social History Tobacco Use Types Packs/Day Years [...] Risk Indicated 10/14/2022 12:25 PM EDT Daniela Gallagher RN * [place] Suicide Severity Rating Scale (Screener/Recent Self-Report) Question Answer Date of Assessment Author 1. Wish to be (Past 1 Month) No 023 12:25 PM EDT Daniela Gallagher RN 2. Non-Specific Active Suici abdifatah Thoughts (Past 1 Month) No 10/14/2022 12:25 PM EDT Daniela Gallagher RN 6. Suicidal Behavior (Lifetime) No 3 12:25 PM EDT Daniela Gallagher RN documented as of this encounter Plan of Treatment Upcoming Encounters Date Type Department Care Team (Late st Contact Info) Description 07/19/2025 8:00 AM EDT Office Visit [facility] [address] [place] [address] [place] CNP [address] [place] [address], [address] [place] [address] [email or web address] documented as of this encounter Visit Diagnoses Not on filedocumented in this encounter Additional Health Concerns Assessment Noted Time PHQ-2 Depression Total Score: 0 07/11/19 23 3:26 PM EST documented as of this encounter Care Teams Staffing Program Manager Relationship Specialty Start Date End Date [place] CNP [address] [place] [address], [address] [place] [address] [email or web address] PCP - General Family Medicine 04/20/19 Richardson Mckeon MD [address] [place] [address], [address] [place] [address] [email or web address] Insurance Assigned Provider 08/06/23 08/05/24 Jagruti Jiménez MD [address] [place] [address], [address] [place] [address] [email or web address] 05/07/19 Zoila Hart MD [address] [place] [address] Dermatology 11/21/19 07/14/23 Michael Hargrove MD [address] [place] [address] [address] [place] [address] Cardiology 10/10/20 Rianna Reina, OT 30 [place] [address] [email or web address] Transitions Plate InspectorComputer Forensics Examiner Therapy 10/15/22 10/18/22 Zoila Hart MD [address] [place] [address] Dermatology 07/15/23 [place] CNP 22 [facility], [address] [place] [address] [email or web address] Insurance Assigned Provider 08/05/24 documented as of this encounter Additional Source Comments The information contained in this document represents components of the legal health record. It is not the complete legal health record.[facility]
--- OUTSIDE RECORDS SUMMARY | 2025-03-21 20:32 | XMS_ITS | Encounter Summary ---
Author Organization [facility] Address [address] [place] [address] [place] [address] Phone Care Team Providers Care Firer Portable Boiler Name Role Phone [place] CNP Primary Care Provider [phone] Jagruti Jiménez MD Unavailable [phone] Michael Hargrove MD Unavailable Zoila Hart MD Unavailable [place] CNP Unavailable Encounter Details Date Type Department Care Team (Latest Contact Info) Description 11/21/2024 Transcribe Orders Virtual Department [address] [place] [address] Munira Doss, DIYA [address] [place], [place] [id number] Dysphagia, unspecified type (Primary Dx) Social History Tobacco Use Types Packs/Day Years Used Date Smoking Tobacco: Never Smokeless Tobacco: Never Comments: smoked but onur t age 29. Alcohol Use Standard Drinks/Week Comments No 0 (1 standard drink = 0.6 oz pur e alcohol) No history of abuse. (2024) Child or Family Care Answer Date Record [...] with a working camera? Not on file Intimate Partner Violence Answer Date R ecorded Denied Basic Needs Not on file 07/10/2024 In the past 12 months have y ou been in a relationship with a person who hurts, threatens, or tries to control you? No 07/10/2024 Worried food would run out Not on file 07/10 In the past 12 months have y ou been in a relationship with a person who hurts, threatens, or tries to control you? No 07/10/2024 Sex and Gender Information Value Date Recorded [...] Description 07/19/2025 8:00 AM EDT Office Visit [facility] [address] [place] [address] [place], MANSOOR [address], [address] [place] [address] [email or web address] documented as of this encounter Results * FL BARIUM SWALLOW ESOPHAGRAM DOUBLE CONTRAST (12/14/2024 9:10 AM EDT) Anatomical Region Laterality Modality Chest Radio Fluoroscop y 12/14/2024 9:33 AM EDT Impressions 12/14/2024 3:10 PM EDT Barium swallow esophagram is within normal limits. FLUOROSCOPY TIME: 1 minute 21 seconds NUMBER OF IMAGES: 234 The examination was performed by RRAInocencio. Dr. Colleen Cr was immediately available for portions of the procedure as needed. ATTESTATION: I, Colleen Cr as teaching physician, have reviewed the images for this case and if necessary edited the report originally created by Inocencio Aragon. Narrative 12/14/2024 3:10 PM EDT FL BARIUM SWALLOW ESOPHAGRAM DOUBLE CONTRAST HISTORY: Dysphagia. COMPARISON: XR chest 06/01/2023. TECHNIQUE: Double contrast barium swallow examination was performed with Sodium Carbonate and Barium. FINDINGS: SWALLOW: No lizz aspiration. ESOPHAGUS: Motility: Within normal limits. Mucosa: No gross mucosal pathology demonstrated fluoroscopically. Distensibility: Normal. GASTROESOPHAGEAL JUNCTION: No evidence of hiatal hernia. GASTROESOPHAGEAL REFLUX: None observed. TABLET: A 13 mm barium tablet passed into the stomach without difficulty. Visualized portion of the stomach and proximal small bowel are unremarkable. Procedure Note Colleen Cr MD - 12/14/2024 FL BARIUM SWALLOW ESOPHAGRAM DOUBLE CONTRAST HISTORY: Dysphagia. COMPARISON: XR chest 06/01/2023. TECHNIQUE: Double contrast barium swallow examination was performed withSodium Carbonate and Barium. FINDINGS: SWALLOW: No lizz aspiration. ESOPHAGUS: Motility: Within normal limits. Mucosa: No gross mucosal pathology demonstrated fluoroscopically. Distensibility: Normal. GASTROESOPHAGEAL JUNCTION: No evidence of hiatal hernia. GASTROESOPHAGEAL REFLUX: None observed. TABLET: A 13 mm barium tablet passed into the stomach withoutdifficulty. Visualized portion of the stomach and proximal small bowel areunremarkable. IMPRESSION: Barium swallow esophagram is within normal limits. FLUOROSCOPY TIME: 1 minute 21 seconds NUMBER OF IMAGES: 234 The examination was performed by RRAInocencio. Dr. Colleen Cr wasimmediately available for portions of the procedure as needed. ATTESTATION: I, Colleen Cr as teaching physician, have reviewed theimages for this case and if necessary edited the report originally createdby Inocencio Aragon. Munira Doss CRYSTALLOGRAPHER IMG FL MISC Final Result documented in this encounter Visit Diagnoses Diagnosis Dysphagia, unspecified type- Primary Dysphagia, unspecified type documented in this encounter Additional Health Concerns Assessment Noted Time PHQ-2 Depression Total Score: 0 07/11/19 25 5:16 PM EDT documented as of this encounter Care Teams Firer Portable Boiler Relationship Specialty Start Date End Date [place] CNP [address] [place] [address], [address] [place] [address] PCP - General Family Medicine 04/20/19 Jagruti Jiménez MD [address] [place] [address], [address] [place] [address] [email or web address] 05/07/19 Michael Hargrove MD [address] [place] [address] [place] [address] Cardiology 10/10/20 Zoila Hart MD [address], [place] [address] Dermatology 07/15/23 [place] CNP 22 [facility], [address] [place] [address] [email or web address] Insurance Assigned Provider 08/05/24 documented as of this encounter Additional Source Comments The information contained in this document represents components of the legal health record. It is not the complete legal health record.[facility]
--- OUTSIDE RECORDS SUMMARY | 2025-03-21 20:32 | XMS_ITS | Encounter Summary ---
Author Organization [facility] Address [address] [place] [address] [place] [address] Phone Care Team Providers Care Pants Busheler Name Role Phone Dallas Kirby CNP Primary Care Provider [phone] Richardson Mckeon MD Unavailable Jagruti Jiménez MD Unavailable [phone] Zoila Hart MD Unavailable Michael Hargrove MD Unavailable [phone] Rianna Reina OT Unavailable [phone] Zoila Hart MD Unavailable Dallas Kirby CNP Unavailable Encounter Details Date Type Department Care Team (Late st Contact Info) Description 10/14/2022 Procedure Pass [facility], Ct Scan - [address] [address] Social History Tobacco Use Types Packs/Day Years [...] 12:25 PM EDT Daniela Gallagher, RN * [place] Suicide Severity Rating Scale (Screener/Recent Self-Report) Question [...] 07/19/2025 8:00 AM EDT Office Visit [facility] [address] [place] [address] Dallas Kirby CNP [address] [place] [address], [address] [place] [address] [email or web address] documented as of this encounter Visit Diagnoses Not on filedocumented in this encounter Additional Health Concerns Assessment Noted Time PHQ-2 Depression Total Score: 0 07/11/19 23 3:26 PM EST documented as of this encounter Care Teams Pants Busheler Relationship Specialty Start Date End Date Dallas Kirby CNP [address] [place] [address], [address] [place] [address] [email or web address] PCP - General Family Medicine 04/20/19 Richardson Mckeon MD [address] [place] [address], [address] [place] [address] [email or web address] Insurance Assigned Provider 08/06/23 08/05/24 Jagruti Jiménez MD [address] [place] [address], [address] [place] [address] [email or web address] 05/07/19 Zoila Hart MD [address] [place] [address] Dermatology 11/21/19 07/14/23 Michael Hargrove MD [address] [place] [address] [address] [place] [address] Cardiology 10/10/20 Rianna Reina, OT [address] [place] [address] [email or web address] Transitions Structural Steel Worker ApprenticeStreet Superintendent Therapy 10/15/22 10/18/22 Zoila Hart MD [address] [place] [address] Dermatology 07/15/23 Dallas Kirby CNP 22 [facility], [address] [place] [address] [email or web address] Insurance Assigned Provider 08/05/24 documented as of this encounter Additional Source Comments The information contained in this document represents components of the legal health record. It is not the complete legal health record.[facility]
--- OUTSIDE RECORDS SUMMARY | 2025-03-21 20:32 | XMS_ITS | Encounter Summary ---
Author Organization [facility] Address [address] [place] [address] [place] [address] Phone Care Team Providers Care Bioprocessing Manufacturing Technician Name Role Phone Dallas Kirby CNP Primary Care Provider [phone] Jagruti Jiménez MD Unavailable [phone] Michael Hargrove MD Unavailable [phone] Zoila Hart MD Unavailable Dallas Kirby CNP Unavailable Encounter Details Date Type Department Care Team (Late st Contact Info) Description 03/14/2025 Procedure Pass [facility]oscopy Admitting Dept Virtual Department [address] [place] [address] Social History Tobacco Use Types Packs/Day Years [...] Date of Assessment Author No Risk Indicated 03/14/2025 10:49 AM Angela Myrick RN * [place] Suicide Severity Rating Scale (Screener/Recent Self-Report) Question Answer Date of Assessment Author 1. Wish to be (Past 1 Month) No 025 10:49 AM Angela Myrick RN 2. Non-Specific Active Suici abdifatah Thoughts (Past 1 Month) No 03/14/2025 10:49 AM Angela Myrick RN 6. Suicidal Behavior (Lifetime) No 10:49 AM Angela Myrick RN documented as of this encounter Plan of Treatment Upcoming Encounters Date Type Department Care Team (Late st Contact Info) Description 07/19/2025 8:00 AM EDT Office Visit [address] [place] [address] Dallas Kirby CNP [address] [place] [address], [address] [place] [address] [email or web address] documented as of this encounter Visit Diagnoses Not on filedocumented in this encounter Additional Health Concerns Assessment Noted Time PHQ-2 Depression Total Score: 0 07/11/19 25 5:16 PM EDT documented as of this encounter Care Teams Bioprocessing Manufacturing Technician Relationship Specialty Start Date End Date Dallas Kirby CNP [address] [place] [address], [address] [place] [address] PCP - General Family Medicine 04/20/19 Jagruti Jiménez MD [address] [place] [address], [address] [place] [address] [email or web address] 05/07/19 Michael Hargrove MD [address] [place] [address] [place] [address] Cardiology 10/10/20 Zoila Hart MD [address] [place] [address] Dermatology 07/15/23 Dallas Kirby CNP 22 [facility], [address] [place] [address] [email or web address] Insurance Assigned Provider 08/05/24 documented as of this encounter Additional Source Comments The information contained in this document represents components of the legal health record. It is not the complete legal health record.[facility]
--- OUTSIDE RECORDS SUMMARY | 2025-03-21 20:32 | XMS_ITS | Encounter Summary ---
Author Organization [facility] Address [address] [place] [address] [place] [address] Phone Care Team Providers Care Surgical Coder Name Role Phone Dallas Kirby RAILROAD FIRER/FIREMAN Primary Care Provider [phone] Richardson Mckeon MD Unavailable Jagruti Jiménez MD Unavailable [phone] Zoila Hart MD Unavailable Michael Hargrove MD Unavailable [phone] Rianna Reina OT Unavailable [phone] Zoila Hart MD Unavailable [phone] Dallas Kirby RAILROAD FIRER/FIREMAN Unavailable Encounter Details Date Type Department Care Team (Late st Contact Info) Description 08/06/2021 Telephone Fall [facility] [address] [place], [place] [address] Dallas Kirby CNP 22 [facility], [address] [place] [address] [email or web address] Social History Tobacco Use Types Packs/Day Years [...] high school, GED, job training, learning the Hebrew language, technical skills, or developing parenting skills)? [...] Date of Assessment Author No Risk Indicated 08/06/2021 10:50 AM EDT Saundra Tate RN * [place] Suicide Severity Rating Scale (Screener/Recent Self-Report) Question Answer Date of Assessment Author 1. Wish to be (Past 1 Month) No 022 10:50 AM EDT Saundra Taet, REJI 2. Non-Specific Active Suici abdifatah Thoughts (Past 1 Month) No 08/06/2021 10:50 AM EDT Sera Tate RN 6. Suicidal Behavior (Lifetime) No 10:50 AM EDT Saundra Tate, RN documented as of this encounter Plan of Treatment Upcoming Encounters Date Type Department Care Team (Late st Contact Info) Description 07/19/2025 8:00 AM EDT Office Visit [facility] 22 [place] [address] Dallas Kirby CNP [address] [place] [address], [address] [place] [address] [email or web address] documented as of this encounter Visit Diagnoses Not on filedocumented in this encounter Additional Health Concerns Assessment Noted Time PHQ-2 Depression Total Score: 0 07/07/19 22 9:01 AM EST documented as of this encounter Care Teams Surgical Coder Relationship Specialty Start Date End Date Dallas Kirby CNP [address] [place] [address], [address] [address] [email or web address] PCP - General Family Medicine 04/20/19 Richardson Mckeon MD [address] [place] [address], [address] [address] [email or web address] Insurance Assigned Provider 08/06/23 08/05/24 Jagruti Jiménez MD [address] [place] [address], [address] [address] [email or web address] 05/07/19 Zoila Hart MD [address] [place] [address] Dermatology 11/21/19 07/14/23 Michael Hargrove MD [address] [place] [address] [place] [address] Cardiology 10/10/20 Rianna Reina, OT [address] [place] [address] [email or web address] Transitions Paralegal SupervisorClother In Therapy 10/15/22 10/18/22 Zoila Hart MD [address] [place] [address] Dermatology 07/15/23 Dallas Kirby CNP 22 [facility], [address] [place] [address] [email or web address] Insurance Assigned Provider 08/05/24 documented as of this encounter Additional Source Comments The information contained in this document represents components of the legal health record. It is not the complete legal health record.[facility]
--- OUTSIDE RECORDS SUMMARY | 2025-03-21 20:32 | XMS_ITS | Encounter Summary ---
Author Organization [facility] Address [address] [place] [address] Phone Care Team Providers Care Online Media Director Name Role Phone Gutierrez Guadalupe DO Primary Care Provider [phone] Michael Hargrove MD Unavailable Dallas Kirby CNP Primary Care Provider [phone] Richardson Mckeon MD Unavailable [phone] Jagruti Jiménez MD Unavailable [phone] Zoila Hart MD Unavailable [phone] Michael Hargrove MD Unavailable [phone] Minerva Mcmillan PA-C Unavailable [phone] Dorian Arana DO Unavailable [phone] Rianna Reina OT Unavailable [phone] Zoila Hart MD Unavailable [phone] Dallas Kirby CNP Unavailable Reason for Referral * Consultation (Elective) - Closed Specialty Diagnoses / Procedures Referred By Kimo t Referred To Contact Cardiac Rehabilitation Diagnoses Mitral valve prolapse Michael Hargrove MD Phone: tel: fax: [address] [address] Phone: tel: Referral ID Status Reason Start Date Expiration Date Visits Re quested Visits Authorized [id number] Closed 05/05/2017 05/05/2018 1 1 Encounter Details Date Type Department Care Team (Late st Contact Info) Description 05/05/2017 Transcribe Orders Virtual Department 30 [place] [address] Michael Hargrove MD [address] [place] [address] [address] [place] [address] Mitral valve prolapse (Primary Dx) Social History Tobacco Use Types [...] Description 07/19/2025 8:00 AM EDT Office Visit [facility] 22 [place] [address] Dallas Kirby, MANSOOR 22 [facility], [address] [place] [address] [email or web address] Scheduled Referrals Name Type Priority Associated Diagnoses Order Schedule Ambulatory referral to [facility] Cardiac Rehab Outpatient Referral Routine Mitral valve prolapse Ordered: 05/05/2017 documented as of this encounter Procedures Procedure Name Priority Date/Time Associated Diagnosis Comments ECG 12-LEAD Routine 05/30/2017 10:33 AM EST Mitral valve prolapse documented in this encounter Results * ECG 12-LEAD (05/30/2017 10:33 AM EST) Ventricular Rate EKG/MIN 97 BPM [facility] Atrial Rate 97 BPM [facility] WA Interval 198 ms [facility] QRS Duration 112 ms [facility] QT Interval 392 ms [facility] QTC Interval 497 ms [facility] P [place] 65 degrees [facility] R Wave [place] -32 degrees [facility] T Wave [place] 75 degrees [facility] 05/30/2017 10:3 3 AM EST 05/30/2017 12:45 PM EST Narrative [facility] - 05/30/2017 12:45 PM EST Normal sinus rhythm Left axis deviation Prolonged QT Abnormal ECG No previous ECGs available Confirmed by BRAD SUERO MD ([id number]) on 05/30/2017 12:45:27 PM us Juventino Orr MD ECG ORDERABLES Final Res ult [facility] documented in this encounter Visit Diagnoses Diagnosis Mitral valve prolapse- Primary Mitral valve disorders documented in this encounter Additional Health Concerns Infection Onset Date Last Indicated Resolved Time CoV-Exposed Comment:Recent close contact 04/28/2020 04/28/2020 05/12/2020 1:24 AM EST documented as of this encounter Care Teams Online Media Director Relationship Specialty Start Date End Date Gutierrez Guadalupe DO [address] [place] [address] PCP - General Internal Medicine 01/28/17 04/19/19 Dallas Kirby CNP [address] [place] [address], [address] [place] [address] [email or web address] PCP - General Family Medicine 04/20/19 Michael Hargrove MD [address] [place] [address] Adobe Maker Cardiology 01/28/17 04/19/19 Richardson Mckeon MD [address] [place] [address], [address] [place] [address] [email or web address] Insurance Assigned Provider 08/06/23 08/05/24 Jagruti Jiménez MD [address] [place] [address], [address] [place] [address] [email or web address] 05/07/19 Zoila Hart MD [address] [address] Dermatology 11/21/19 07/14/23 Michael Hargrove MD [address] [place] [address] Cardiology 10/10/20 Minerva Mcmillan PA-C [address] [place] [address] [email or web address] Physician Sebd Teacher Hematology 10/30/20 07/05/21 Dorian Arana DO [address] [place] [address] [email or web address] Primary Oncologist Hematology and Oncology 10/30/20 2 Rianna Reina, OT [address] [place] [address] [email or web address] Transitions Protector Plate AttacherSupervisor Cd Area Therapy 10/15/22 10/18/22 Zoila Hart MD [address] [place] [address] Dermatology 07/15/23 Dallas Kirby CNP [address] [place] [address], [address] [place] [address] [email or web address] Insurance Assigned Provider 08/05/24 documented as of this encounter Additional Source Comments The information contained in this document represents components of the legal health record. It is not the complete legal health record.[facility]
--- OUTSIDE RECORDS SUMMARY | 2025-03-21 20:32 | XMS_ITS | Encounter Summary ---
Author Organization [facility] Address [address] [place] [address] Phone Care Team Providers Care Rotary Shear Operator Name Role Phone Gutierrez Guadalupe DO Primary Care Provider [phone] Michael Hargrove MD Unavailable Dallas Kirby CNP Primary Care Provider [phone] Richardson Mckeon MD Unavailable [phone] Jagruti Jiménez MD Unavailable [phone] Zoila Hart MD Unavailable Michael Hargrove MD Unavailable Minerva Mcmillan PA-C Unavailable [phone] Dorian Arana DO Unavailable [phone] Rianna Reina OT Unavailable [phone] Zoila Hart MD Unavailable Dallas Kirby CNP Unavailable Encounter Details Date Type Department Care Team (Late st Contact Info) Description 03/21/2017 Procedure Pass [facility] [address] [place] [address] Social History Tobacco Use Types Packs/Day Years [...] Description 07/19/2025 8:00 AM EDT [facility] [address] [place] [address] Dallas Kirby CNP [address] [place] [address], [address] [place] [address] [email or web address] documented as of this encounter Visit Diagnoses Not on filedocumented in this encounter Additional Health Concerns Infection Onset Date Last Indicated Resolved Time CoV-Exposed Comment:Recent close contact 04/28/2020 04/28/2020 05/12/2020 1:24 AM EST documented as of this encounter Care Teams Rotary Shear Operator Relationship Specialty Start Date End Date Gutierrez Guadalupe DO [address] [place] [address] PCP - General Internal Medicine 01/28/17 04/19/19 Dallas Kirby CNP [address] [place] [address], [address] [place] [address] PCP - General Family Medicine 04/20/19 Michael Hargrove MD [address] [place] [address] [place] [address] Box Blank Machine Feeder Cardiology 01/28/17 04/19/19 Richardson Mckeon MD [address] [place] [address], [address] [place] [address] [email or web address] Insurance Assigned Provider 08/06/23 08/05/24 Jagruti Jiménez MD 22 [facility], [address] [place] [address] [email or web address] 05/07/19 Zoila Hart MD [address] [place] [address] Dermatology 11/21/19 07/14/23 Michael Hargrove MD [address] [place] [address] Cardiology 10/10/20 Minerva Mcmillan PA-C [address] [place] [address] Physician Fish Warden Hematology 10/30/20 07/05/21 oDrian Arana DO [address] [place] [address] [email or web address] Primary Oncologist Hematology and Oncology 10/30/20 2 Rianna Reina, OT [address] [place] [address] [email or web address] Transitions Final Application ReviewerGettering Filament Machine Operator Therapy 10/15/22 10/18/22 Zoila Hart MD [address] [place] [address] Dermatology 07/15/23 Dallas Kirby CNP [address] [place] [address], [address] [place] [address] [email or web address] Insurance Assigned Provider 08/05/24 documented as of this encounter Additional Source Comments The information contained in this document represents components of the legal health record. It is not the complete legal health record.[facility]
--- OUTSIDE RECORDS SUMMARY | 2025-03-21 20:32 | XMS_ITS | Encounter Summary ---
Author Organization [facility] Address [address] [facility] [address] [place] [address] Phone Care Team Providers Care Aircraft Fuselage Framer Name Role Phone Dallas Kirby CNP Primary Care Provider [phone] Jagruti Jiménez MD Unavailable [phone] Michael Hargrove MD Unavailable Zoila Hart MD Unavailable [phone] Dallas Kirby CNP Unavailable Reason for Visit * Reason Comments Medication Refill Encounter Details Date Type Department Care Team (Late st Contact Info) Description 03/16/2025 Refill [facility] [place] [facility] [address] [place] [address] Dallas Kirby CNP 22 [facility], [address] [place] [address] [email or web address] Medication Refill Social History Tobacco Use Types Packs/Day Years [...] on file documented as of this encounter Progress Notes * Honey Arrieta LPN - 03/18/2025 2:33 PM EST Images from the original note were not included. Rx Care Gap Status - Instructions for Clinical Staff (prescriber discretion applies): > Mismatch review guide > Check PDMP for all controlled medication requests. > N/a - No action needed Visit Info Last visit: 07/17/2024 Dallas Kirby CNP - Family Medicine [facility] > Requested f/u: Return for Annual physical. Upcoming visit: 07/19/2025 Dallas Kirby CNP - Family [facility] ACTIONS TAKEN BY Honey Arrieta LPN - Checked PDMP/MassPAT. Antiepileptic Without Labs Rx Protocol - gabapentin Criteria met; renew for up to 12 months. Visit in the past 14 months: Yes Non-Opioid Controlled Substance With PDMP Rx Protocol - gabapentin Renewal is at prescriber discretion. Visit in the past 12 months: Yes documented in this encounter Plan of Treatment Upcoming Encounters Date Type Department Care Team (Late st Contact Info) Description 07/19/2025 8:00 AM EDT Office Visit [facility] [address] [place] [address] Dallas Kirby CNP [address] [facility], [address] [place] [address] documented as of this encounter Visit Diagnoses Not on filedocumented in this encounter Additional Health Concerns Assessment Noted Time PHQ-2 Depression Total Score: 0 07/11/19 25 5:16 PM EDT documented as of this encounter Care Teams Aircraft Fuselage Framer Relationship Specialty Start Date End Date Dallas Kirby CNP [address] [facility], [address] [place] [address] [email or web address] PCP - General Family Medicine 04/20/19 Jagruti Jiménez MD [address] [place] [address], [address] [place] [address] [email or web address] 05/07/19 Michael Hargrove MD [address] [place] [address] Cardiology 10/10/20 Zoila Hart MD [address] [address] Dermatology 07/15/23 Dallas Kirby CNP [address] [place] [address], [address] [place] [address] [email or web address] Insurance Assigned Provider 08/05/24 documented as of this encounter Additional Source Comments The information contained in this document represents components of the legal health record. It is not the complete legal health record.[facility]
--- OUTSIDE RECORDS SUMMARY | 2025-03-21 20:32 | XMS_ITS | Encounter Summary ---
Author Organization [facility] Address [address] [place] [address] Phone Care Team Providers Care Water Plant Operator Name Role Phone Dallas Kirby DEMAND PLANNER Primary Care Provider [phone] Richardson Mckeon MD Unavailable [phone] Jagruti Jiménez MD Unavailable [phone] Zoila Hart MD Unavailable Michael Hargrove MD Unavailable [phone] Minerva Mcmillan PA-C Unavailable [phone] Dorian Arana DO Unavailable [phone] Rianna Reina OT Unavailable [phone] Zoila Hart MD Unavailable [phone] Dallas Kirby CNP Unavailable [phone] Encounter Details Date Type Department Care Team (Late st Contact Info) Description 10/01/2020 Procedure Pass [facility], Ct Scan - [address] [address] Social History Tobacco Use Types Packs/Day Years [...] Date of Assessment Author No Risk Indicated 10/02/2020 7:46 PM EDT Eunice Willard, RN * [place] Suicide Severity Rating Scale (Screener/Recent Self-Report) Question Answer Date of Assessment Author 1. Wish to be (Past 1 Month) No 021 7:46 PM EDT Eunice Rowan, RN 2. Non-Specific Active Suici abdifatah Thoughts (Past 1 Month) No 10/02/2020 7:46 PM EDT Eunice Rowan, RN 6. Suicidal Behavior (Lifetime) No 7:46 PM EDT Eunice Rowan, RN documented as of this encounter Plan of Treatment Upcoming Encounters Date Type Department Care Team (Late st Contact Info) Description 07/19/2025 8:00 AM EDT Office Visit [address] [address] Dallas Kirby CNP [address] [place] [address], [address] [place] [address] [email or web address] documented as of this encounter Visit Diagnoses Not on filedocumented in this encounter Additional Health Concerns Assessment Noted Time PHQ-2 Depression Total Score: 0 11/21/19 20 10:41 AM EDT documented as of this encounter Care Teams Water Plant Operator Relationship Specialty Start Date End Date Dallas Kirby CNP [address] [place] [address], [address] [place] [address] [email or web address] PCP - General Family Medicine 04/20/19 Richardson Mckeon MD [address] [place] [address], [address] [place] [address] [email or web address] Insurance Assigned Provider 08/06/23 08/05/24 Jagruti Jiménez MD [address] [place] [address], [address] [place] [address] [email or web address] 05/07/19 Zoila Hart MD [address] [place] [address] Dermatology 11/21/19 07/14/23 Michael Hargrove MD [address] [place] [address] Cardiology 10/10/20 Minerva Mcmillan PA-C [address] [place] [address] [email or web address] Physician Copy Chief Hematology 10/30/20 07/05/21 Dorian Arana DO [address] [place] [address] [email or web address] Primary Oncologist Hematology and Oncology 10/30/20 2 Rianna Reina, OT [address] [place] [address] [email or web address] Transitions Natural Gas TechnicianSelling Specialist Therapy 10/15/22 10/18/22 Zoila Hart MD [address] [place] [address] Dermatology 07/15/23 Dallas Kirby, MANSOOR [address] [place] [address], [address] [place] [address] [email or web address] Insurance Assigned Provider 08/05/24 documented as of this encounter Additional Source Comments The information contained in this document represents components of the legal health record. It is not the complete legal health record.[facility]
--- OUTSIDE RECORDS SUMMARY | 2025-03-21 20:32 | XMS_ITS | Encounter Summary ---
Author Organization [facility] Address [address] [place] [address] Phone Care Team Providers Care Screed Person Name Role Phone Dallas Kirby ACCOUNTANT PROPERTY Primary Care Provider [phone] Richardson Mckeon MD Unavailable [phone] Jagruti Jiménez MD Unavailable [phone] Zoila Hart MD Unavailable [phone] Michael Hargrove MD Unavailable [phone] Minerva Mcmillan PA-C Unavailable [phone] Dorian Arana DO Unavailable [phone] Rianna Reina OT Unavailable [phone] Zoila Hart MD Unavailable [phone] Dallas Kirby CNP Unavailable [phone] Encounter Details Date Type Department Care Team (Late st Contact Info) Description 09/19/2020 Procedure Pass [place] Admitting Dept - Virtual Department [address] [place] [address] Social History Tobacco Use Types Packs/Day Years [...] Description 07/19/2025 8:00 AM EDT Office Visit [facility] [address] [address] Dallas Kirby CNP [address] [place] [address], [address] [place] [address] [email or web address] documented as of this encounter Visit Diagnoses Not on filedocumented in this encounter Additional Health Concerns Assessment Noted Time PHQ-2 Depression Total Score: 0 11/21/19 10:41 AM EDT documented as of this encounter Care Teams Screed Person Relationship Specialty Start Date End Date Dallas Kirby CNP [address] [place] [address], [address] [place] [address] [email or web address] PCP - General Family Medicine 04/20/19 Richardson Mckeon MD [address] [place] [address], [address] [place] [address] [email or web address] Insurance Assigned Provider 08/06/23 08/05/24 Jagruti Jiménez MD [address] [place] [address], [address] [place] [address] [email or web address] 05/07/19 Zoila Hart MD [address] [place] [address] Dermatology 11/21/19 07/14/23 Michael Hargrove MD [address] [place] [address] [address] [place] [address] Cardiology 10/10/20 Minerva Mcmillan PA-C [address] [place] [address] Physician [employer] Hematology 10/30/20 07/05/21 Dorian Arana DO [address] [place] [address] [email or web address] Primary Oncologist Hematology and Oncology 10/30/20 2 Rianna Reina, OT [address] [place] [address] [email or web address] Transitions Solar Electric InstallerLamination Machine Operator Therapy 10/15/22 10/18/22 Zoila Hart MD [address] [place] [address] Dermatology 07/15/23 Dallas Kirby CNP [address] [facility], [address] [place] [address] [email or web address] Insurance Assigned Provider 08/05/24 documented as of this encounter Additional Source Comments The information contained in this document represents components of the legal health record. It is not the complete legal health record.[facility]
--- OUTSIDE RECORDS SUMMARY | 2025-03-21 20:32 | XMS_ITS | Encounter Summary ---
Author Organization [facility] Address [address] [place] [address] [place] [address] Phone Care Team Providers Care Buyer Assistant Name Role Phone Gutierrez Guadalupe DO Primary Care Provider [phone] Michael Hargrove MD Unavailable Dallas Kirby CNP Primary Care Provider [phone] Richardson Mckeon MD Unavailable [phone] Jagruti Jiménez MD Unavailable [phone] Zoila Hart MD Unavailable [phone] Michael Hargrove MD Unavailable Minerva Mcmillan PA-C Unavailable [phone] Dorian Arana DO Unavailable [phone] Rianna Reina OT Unavailable Zoila Hart MD Unavailable [phone] Dallas Kirby CNP Unavailable Encounter Details Date Type Department Care Team (Late st Contact Info) Description 03/18/2017 Procedure Pass [facility] Cardiac Towboat Engineer [address] [facility], [address], [address] [place] [address] Social History Tobacco Use Types [...] Description 07/19/2025 8:00 AM EDT Office Visit [facility] Family Medicine [address] [place] [address] [place] [address] Dallas Kirby CNP [address] [place] [address], [address] [place] [address] documented as of this encounter Visit Diagnoses Not on filedocumented in this encounter Additional Health Concerns Infection Onset Date Last Indicated Resolved Time CoV-Exposed Comment:Recent close contact 04/28/2020 04/28/2020 05/12/2020 1:24 AM EST documented as of this encounter Care Teams Buyer Assistant Relationship Specialty Start Date End Date Gutierrez Guadalupe DO [address] [place] [address] PCP - General Internal Medicine 01/28/17 04/19/19 Dallas Kirby CNP [address] [place] [address], [address] [place] [address] PCP - General Family Medicine 04/20/19 Michael Hargrove MD [address] [place] [address] Yoker Machine Operator Cardiology 01/28/17 04/19/19 Richardson Mckeon MD [address] [place] [address], [address] [place] [address] [email or web address] Insurance Assigned Provider 08/06/23 08/05/24 Jagruti Jiménez MD [address] [facility], [address] [place] [address] [email or web address] 05/07/19 Zoila Hart MD [address] [address] Dermatology 11/21/19 07/14/23 Michael Hargrove MD [address] [place] [address] Cardiology 10/10/20 Minerva Mcmillan PA-C [address] [place] [address] [email or web address] Physician Speed Winder Hematology 10/30/20 07/05/21 Dorian Arana DO 30 [place] [address] [email or web address] Primary Oncologist Hematology and Oncology 10/30/20 2 Rianna Reina, OT 30 [place] [address] [email or web address] Transitions Nursing Service AdministratorFeather Drying Machine Operator Therapy 10/15/22 10/18/22 Zoila Hart MD [address] [address] Dermatology 07/15/23 Dallas Kirby CNP [address] [place] [address], [address] [place] [address] [email or web address] Insurance Assigned Provider 08/05/24 documented as of this encounter Additional Source Comments The information contained in this document represents components of the legal health record. It is not the complete legal health record.[facility]
--- OUTSIDE RECORDS SUMMARY | 2025-03-21 20:32 | XMS_ITS | Encounter Summary ---
Author Organization [facility] Address [address] [place] [address] Phone Care Team Providers Care Production Laborer Name Role Phone Dallas Kirby RATE REVIEWER Primary Care Provider [phone] Richardson Mckeon MD Unavailable [phone] Jagruti Jiménez MD Unavailable [phone] Zoila Hart MD Unavailable [phone] Michael Hargrove MD Unavailable [phone] Minerva Mcmillan PA-C Unavailable [phone] Dorian Arana DO Unavailable [phone] Rianna Reina OT Unavailable [phone] Zoila Hrat MD Unavailable [phone] Dallas Kirby CNP Unavailable [phone] Encounter Details Date Type Department Care Team (Late st Contact Info) Description 10/01/2020 Procedure Pass [facility], Ct Scan - [address] [address] Social History Tobacco Use Types Packs/Day Years [...] 7:46 PM EDT Eunice Willard, RN * [place] Suicide Severity Rating Scale (Screener/Recent Self-Report) Question [...] Description 07/19/2025 8:00 AM EDT Office Visit [address] [address] Dallas Kirby CNP [address] [place] [address], [address] [place] [address] [email or web address] documented as of this encounter Visit Diagnoses Not on filedocumented in this encounter Additional Health Concerns Assessment Noted Time PHQ-2 Depression Total Score: 0 11/21/19 20 10:41 AM EDT documented as of this encounter Care Teams Production Laborer Relationship Specialty Start Date End Date Dallas Kirby CNP [address] [place] [address], [address] [place] [address] [email or web address] PCP - General Family Medicine 04/20/19 Richardson Mckeon MD [address] [place] [address], [address] [place] [address] [email or web address] Insurance Assigned Provider 08/06/23 08/05/24 Jagruti Jiménez MD [address] [place] [address], [address] [place] [address] [email or web address] 05/07/19 Zoila Hart MD [address] [place] [address] Dermatology 11/21/19 07/14/23 Michael Hargrove MD [address] [place] [address] Cardiology 10/10/20 Minerva Mcmillan PA-C [address] [place] [address] [email or web address] Physician Meterman Hematology 10/30/20 07/05/21 Dorian Arana DO [address] [place] [address] [email or web address] Primary Oncologist Hematology and Oncology 10/30/20 2 Rianna Reina, OT 30 [place] [address] [email or web address] Transitions Event ExecutiveMail Handler Assistant Therapy 10/15/22 10/18/22 Zoila Hart MD [address] [place] [address] Dermatology 07/15/23 Dallas Kirby, MANSOOR [address] [place] [address], [address] [place] [address] [email or web address] Insurance Assigned Provider 08/05/24 documented as of this encounter Additional Source Comments The information contained in this document represents components of the legal health record. It is not the complete legal health record.[facility]
--- OUTSIDE RECORDS SUMMARY | 2025-03-21 20:32 | XMS_ITS | Encounter Summary ---
Author Organization [facility] Address [address] [place] [address] Phone Care Team Providers Care Video Systems Engineer Name Role Phone Gutierrez Guadalupe DO Primary Care Provider + [phone] Michael Hargrove MD Unavailable [phone] Dallas Kirby CNP Primary Care Provider [phone] Richardson Mckeon MD Unavailable [phone] Jagruti Jiménez MD Unavailable [phone] Zoila Hart MD Unavailable Michael Hargrove MD Unavailable Minerva Mcmillan PA-C Unavailable [phone] Dorian Arana DO Unavailable [phone] Rianna Reina OT Unavailable [phone] Zoila Hart MD Unavailable [phone] Dallas Kirby CNP Unavailable [phone] Reason for Referral * MRI/CAT Scan - Closed Specialty Diagnoses / Procedures Referred By Contalfonso t Referred To Contact Radiology Diagnoses Sensorineural hearing loss (SNHL) of both ears Tinnitus, bilateral Nasal congestion Procedures MRI Brain MRI Brain Juan José Rivera MD [address] [address] Phone: tel: fax: mailto:[email or web address] Referral ID Status Reason Start Date Expiration Date Visits Re quested Visits Authorized [id number] Closed 12/01/2017 12/30/2017 1 1 Encounter Details Date Type Department Care Team (Latest Contact Info) Description 12/01/2017 Ancillary Orders Virtual Department 30 [place] [address] Juan José Rivera MD [address] [facility] [address] [place] [address] [email or web address] Sensorineural hearing loss (SNHL) of both ears; Tinnitus, bilateral; Nasal congestion Social History Tobacco Use Types Packs/Day Years [...] Description 07/19/2025 8:00 AM EDT Office Visit [address] [place] [address] Dallas Kirby, MANSOOR [address] [place] [address], [address] [place] [address] [email or web address] documented as of this encounter Results * MRI BRAIN WITH AND WITHOUT CONTRAST (12/20/2017 10:32 AM EDT) Anatomical Region Laterality Modality Head Magnetic Resonan ce 12/20/2017 11:0 5 AM EDT Impressions 12/20/2017 10:13 PM EDT No abnormality within the internal auditory canals. Several nonspecific supratentorial white matter signal abnormalities. Bilateral maxillary sinusitis and possible ethmoid sinusitis. Small amount of fluid signal within mastoid air cells greater on the right. POS [id number] Edited by: Echo Salazar on 12/20/2017 11:34 AM Narrative 12/20/2017 10:13 PM EDT HISTORY: Hearing test showed hearing loss left ear. Patient noticed this over past 6-7 years. 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 COMPARISON: None. CORRELATION: Head CT 11/19/2007. TECHNIQUE: Exam performed on a 1.5 Sandra high-field MRI scanner. Axial T1, T2, T2 FLAIR and diffusion-weighted imaging with ADC map, sagittal T1 and T2 FLAIR sequences were obtained as well as T1 axial post-gadolinium sequences. FINDINGS: No restricted diffusion to indicate a recent infarct. No evidence of intracranial hemorrhage. Few nonenhancing foci of T2 hyperintensity in the deep white matter of the right frontal lobe and a globular area adjacent to the atrium of the left lateral ventricle. No evidence of a mass, mass effect, or midline shift. A small curvilinear area of enhancement along the cortex of the right frontal lobe toward the vertex appears to correspond with a vessel in the coronal plane. No mass or abnormal enhancement within the internal auditory canals. Inner ear structures are symmetric. No hydrocephalus. Basal cisterns are patent. No cerebellar ectopia. Pituitary gland is not enlarged. Left vertebral artery is hypoplastic. Normal vascular flow-voids appear present in the major intracranial arteries at the skull base. Mucosal thickening in the maxillary sinuses with fluid levels and bubbly material on the right. Mild to moderate mucosal thickening in the ethmoid sinuses with equivocal fluid levels. Mucosal thickening also present in the right frontal sinus. Small amounts of fluid signal within mastoid air cells greater on the right. Subcentimeter nonenhancing T2 hyperintense and T1 minimally hyperintense lesion in the posterior nasopharynx probably represents a mildly proteinaceous retention cyst. Procedure Note Rufina Correia MD - 12/20/2017 HISTORY: Hearing test showed hearing loss left ear. Patient noticed thisover past 6-7 years. 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 COMPARISON: None. CORRELATION: Head CT 11/19/2007. TECHNIQUE: Exam performed on a 1.5 Sandra high-field MRI scanner. AxialT1, T2, T2 FLAIR and diffusion-weighted imaging with ADC map, sagittal T1and T2 FLAIR sequences were obtained as well as T1 axial post-gadoliniumsequences. FINDINGS: No restricted diffusion to indicate a recent infarct. No evidence ofintracranial hemorrhage. Few nonenhancing foci of T2 hyperintensity inthe deep white matter of the right frontal lobe and a globular areaadjacent to the atrium of the left lateral ventricle. No evidence of a mass, mass effect, or midline shift. A small curvilineararea of enhancement along the cortex of the right frontal lobe toward thevertex appears to correspond with a vessel in the coronal plane. No massor abnormal enhancement within the internal auditory canals. Inner earstructures are symmetric. No hydrocephalus. Basal cisterns are patent. No cerebellar ectopia.Pituitary gland is not enlarged. Left vertebral artery is hypoplastic.Normal vascular flow-voids appear present in the major intracranialarteries at the skull base. Mucosal thickening in the maxillary sinuses with fluid levels and bubblymaterial on the right. Mild to moderate mucosal thickening in the ethmoidsinuses with equivocal fluid levels. Mucosal thickening also present inthe right frontal sinus. Small amounts of fluid signal within mastoid air cells greater on theright. Subcentimeter nonenhancing T2 hyperintense and T1 minimallyhyperintense lesion in the posterior nasopharynx probably represents amildly proteinaceous retention cyst. IMPRESSION: No abnormality within the internal auditory canals. Several nonspecific supratentorial white matter signal abnormalities. Bilateral maxillary sinusitis and possible ethmoid sinusitis. Small amount of fluid signal within mastoid air cells greater on theright. POS [id number] Edited by: Echo Salazar on 12/20/2017 11:34 AM Juan José Rivera MD IMG MR HEAD/NECK Final Re sult documented in this encounter Visit Diagnoses Diagnosis Sensorineural hearing loss (SNHL) of both ears Tinnitus, bilateral Unspecified tinnitus Nasal congestion Other diseases of nasal cavity and sinuses Sensorineural hearing loss (SNHL) of both ears Tinnitus, bilateral Unspecified tinnitus Nasal congestion Other diseases of nasal cavity and sinuses documented in this encounter Additional Health Concerns Infection Onset Date Last Indicated Resolved Time CoV-Exposed Comment:Recent close contact 04/28/2020 04/28/2020 05/12/2020 1:24 AM EST documented as of this encounter Care Teams Video Systems Engineer Relationship Specialty Start Date End Date Anayeli Gutierrez MinDO [address] [place] [address] PCP - General Internal Medicine 01/28/17 04/19/19 Dallas Kirby CNP [address] [place] [address], [address] [place] [address] [email or web address] PCP - General Family Medicine 04/20/19 Michael Hargrove MD [address] [place] [address] [address] [place] [address] Engineering Technical Writer Cardiology 01/28/17 04/19/19 Richardson Mckeon MD [address] [place] [address], [address] [place] [address] [email or web address] Insurance Assigned Provider 08/06/23 08/05/24 Jagruti Jiménez MD [address] [place] [address], [address] [place] [address] [email or web address] 05/07/19 Zoila Hart MD [address] [place] [address] Dermatology 11/21/19 07/14/23 Michael Hargrove MD [address] [place] [address] [address] [place] [address] Cardiology 10/10/20 Minerva Mcmillan PA-C [address] [place] [address] [email or web address] Physician Optical Instrument Inspector Hematology 10/30/20 07/05/21 Dorian Arana DO [address] [place] [address] [email or web address] Primary Oncologist Hematology and Oncology 10/30/20 2 Rianna Reina OT [address] [place] [address] [email or web address] Transitions Agricultural AppraiserReal Estate Closer Therapy 10/15/22 10/18/22 Zoila Hart MD [address] [place] [address] Dermatology 07/15/23 Dallas Kirby CNP [address] [facility], [address] [place] [address] [email or web address] Insurance Assigned Provider 08/05/24 documented as of this encounter Additional Source Comments The information contained in this document represents components of the legal health record. It is not the complete legal health record.[facility]
--- OUTSIDE RECORDS SUMMARY | 2025-03-21 20:32 | XMS_ITS | Encounter Summary ---
Author Organization [facility] Address [address] [place] [address] [place] [address] Phone Care Team Providers Care Bench Loom Weaver Name Role Phone Dallas Kirby CNP Primary Care Provider [phone] Richardson Mckeon MD Unavailable [phone] Jagruti Jiménez MD Unavailable [phone] Zoila Hart MD Unavailable Michael Hargrove MD Unavailable [phone] Rianna Reina OT Unavailable [phone] Zoila Hart MD Unavailable Dallas Kirby CNP Unavailable Encounter Details Date Type Department Care Team (Late st Contact Info) Description 10/14/2022 Procedure Pass [facility], Ct Scan - [address] [address] Social History Tobacco Use Types Packs/Day Years [...] 12:25 PM EDT Daniela Gallagher, RN * [place] Suicide Severity Rating Scale (Screener/Recent Self-Report) Question [...] Description 07/19/2025 8:00 AM EDT Office Visit [facility] [address] [place] [address] Dallas Kirby CNP [address] [place] [address], [address] [place] [address] [email or web address] documented as of this encounter Visit Diagnoses Not on filedocumented in this encounter Additional Health Concerns Assessment Noted Time PHQ-2 Depression Total Score: 0 07/11/19 23 3:26 PM EST documented as of this encounter Care Teams Bench Loom Weaver Relationship Specialty Start Date End Date Dallas Kirby CNP [address] [place] [address], [address] [place] [address] [email or web address] PCP - General Family Medicine 04/20/19 Richardson Mckeon MD [address] [place] [address], [address] [place] [address] [email or web address] Insurance Assigned Provider 08/06/23 08/05/24 Jagruti Jiménez MD [address] [place] [address], [address] [place] [address] [email or web address] 05/07/19 Zoila Hart MD [address] [place] [address] Dermatology 11/21/19 07/14/23 Michael Hargrove MD [address] [place] [address] [address] [place] [address] Cardiology 10/10/20 Rianna Reina, OT [address] [place] [address] [email or web address] Transitions Transformation SpecialistCredit Union Examiner Therapy 10/15/22 10/18/22 Zoila Hart MD [address] [place] [address] Dermatology 07/15/23 Dallas Kirby CNP [address] [facility], [address] [place] [address] [email or web address] Insurance Assigned Provider 08/05/24 documented as of this encounter Additional Source Comments The information contained in this document represents components of the legal health record. It is not the complete legal health record.[facility]
== END 2025-03-21 15:47 | disposition home or self-care (01) ==
LOC: HO.HCS 15:16
PROVIDERS: Visit Provider Internal Medicine Cardiovascular Disease
DX: I42.9 Cardiomyopathy, unspecified (principal); Z98.890 Other specified postprocedural states; I48.0 Paroxysmal atrial fibrillation
CPT/HCPCS: 93010; 99214; G2211

== ENCOUNTER → 2025-03-21 15:16 | Outpatient (BNVA) | payer MEDICARE, OTHER, SELFPAY | PROVIDERS: Visit Provider Internal Medicine Cardiovascular Disease | DX: I42.9 Cardiomyopathy, unspecified (principal); I48.0 Paroxysmal atrial fibrillation; Z98.890 Other specified postprocedural states; Z79.01 Long term (current) use of anticoagulants | CPT/HCPCS: 93005; 99212 ==

== ENCOUNTER 2025-04-03 10:36 | Outpatient (REF) | payer MEDICARE, OTHER, SELFPAY ==
[2025-04-03 11:29] LABS: Anion Gap 8 (12-20); Blood Urea Nitrogen 17 mg/dL (9-16); Calcium 9.4 mg/dL (8.4-10.2); Carbon Dioxide 28 mmol/L (22-29); Chloride 109 mmol/L (96-108); Estimated Glomerular Filt Rate > 60; Potassium 4.4 mmol/L (3.3-5.1); Sodium 141 mmol/L (135-145)
--- OUTSIDE RECORDS SUMMARY | 2025-04-03 12:10 | XMS_ITS | Encounter Summary ---
Author Organization [facility] Address [address] [place] [address] Phone Care Team Providers Care Director Of Student Financial Aid Name Role Phone Dallas Kirby SOLE DYER Primary Care Provider [phone] Richardson Mckeon MD Unavailable [phone] Jagruti Jiménez MD Unavailable [phone] Zoila Hart MD Unavailable Michael Hargrove MD Unavailable [phone] Minerva Mcmillan PA-C Unavailable [phone] Dorian Arana DO Unavailable [phone] Rianna Reina OT Unavailable Zoila Hart MD Unavailable [phone] Dallas Kirby SOLE DYER Unavailable [phone] Encounter Details Date Type Department Care Team (Late st Contact Info) Description 12/17/2019 Procedure Pass [facility] Endoscopy Admitting Dept Virtual Department [address] [place] [address] Social History Tobacco Use Types Packs/Day Years [...] Description 07/19/2025 8:00 AM EDT Office Visit [address] [place] [address] Dallas Kirby CNP [address] [facility], [address] [place] [address] [email or web address] documented as of this encounter Visit Diagnoses Not on filedocumented in this encounter Additional Health Concerns Infection Onset Date Last Indicated Resolved Time CoV-Exposed Comment:Recent close contact 04/28/2020 04/28/2020 05/12/2020 1:24 AM EST Assessment Noted Time PHQ-2 Depression Total Score: 0 11/21/19 10:41 AM EDT documented as of this encounter Care Teams Director Of Student Financial Aid Relationship Specialty Start Date End Date Dallas Kirby CNP [address] [place] [address], [address] [address] PCP - General Family Medicine 04/20/19 Richardson Mckeon MD [address] [place] [address], [address] [place] [address] [email or web address] Insurance Assigned Provider 08/06/23 08/05/24 Jagruti Jiménez MD [address] [place] [address], [address] [place] [address] [email or web address] 05/07/19 Zoila Hart MD [address] [place] [address] Dermatology 11/21/19 07/14/23 Michael Hargrove MD [address] [place] [address] [place] [address] Cardiology 10/10/20 Minerva Mcmillan PA-C [address] [place] [address] Physician Rotor Plate Washer Hematology 10/30/20 07/05/21 Dorian Arana DO [address] [place] [address] [email or web address] Primary Oncologist Hematology and Oncology 10/30/20 2 Rianna Reina, OT [address] [place] [address] [email or web address] Transitions Wagon DrillerHousing Management Representative Therapy 10/15/22 10/18/22 Zoila Hart MD [address] [place] [address] Dermatology 07/15/23 Dallas Kirby CNP 22 [facility], [address] [place] [address] [email or web address] Insurance Assigned Provider 08/05/24 documented as of this encounter Additional Source Comments The information contained in this document represents components of the legal health record. It is not the complete legal health record.[facility]
--- OUTSIDE RECORDS SUMMARY | 2025-04-03 12:10 | XMS_ITS | Encounter Summary ---
Author Organization [facility] Address [address] [place] [address] Phone Care Team Providers Care Cork Grinder Name Role Phone Gutierrez Guadalupe DO Primary Care Provider [phone] Michael Hargrove MD Unavailable Dallas Kirby CNP Primary Care Provider [phone] Richardson Mckeon MD Unavailable [phone] Jagruti Jiménez MD Unavailable [phone] Zoila Hart MD Unavailable [phone] Michael Hargrove MD Unavailable Minerva Mcmillan PA-C Unavailable [phone] Dorian Arana DO Unavailable [phone] Rianna Reina OT Unavailable [phone] Zoila Hart MD Unavailable [phone] Dallas Kirby CNP Unavailable Encounter Details Date Type Department Care Team (Late st Contact Info) Description 12/01/2017 Procedure Pass [address] [place] [address] Social History Tobacco Use Types Packs/Day Years [...] 07/19/2025 8:00 AM EDT Office Visit [facility] Family [address] [place] [address] Dallas Kirby CNP [address] [place] [address], [address] [place] [address] documented as of this encounter Visit Diagnoses Not on filedocumented in this encounter Additional Health Concerns Infection Onset Date Last Indicated Resolved Time CoV-Exposed Comment:Recent close contact 04/28/2020 04/28/2020 05/12/2020 1:24 AM EST documented as of this encounter Care Teams Cork Grinder Relationship Specialty Start Date End Date Gutierrez Guadalupe DO [address] [place] [address] PCP - General Internal Medicine 01/28/17 04/19/19 Dallas Kirby CNP [address] [place] [address], [address] [place] [address] PCP - General Family Medicine 04/20/19 Michael Hargrove MD [address] [place] [address] Club Former Cardiology 01/28/17 04/19/19 Richardson Mckeon MD [address] [place] [address], [address] [place] [address] [email or web address] Insurance Assigned Provider 08/06/23 08/05/24 Jagruti Jiménez MD [address] [place] [address], [address] [place] [address] [email or web address] 05/07/19 Zoila Hart MD [address], [place] [address] Dermatology 11/21/19 07/14/23 Michael Hargrove MD [address] [place] [address] Cardiology 10/10/20 Minerva Mcmillan PA-C [address] [place] [address] [email or web address] Physician Ceo & Board Director Hematology 10/30/20 07/05/21 Dorian Arana DO [address] [place] [address] [email or web address] Primary Oncologist Hematology and Oncology 10/30/20 2 Rianna Reina, OT [address] [place] [address] [email or web address] Transitions Electromechanical Equipment TesterGiver Therapy 10/15/22 10/18/22 Zoila Hart MD [address] [place] [address] Dermatology 07/15/23 Dallas Kirby CNP [address] [place] [address], [address] [place] [address] [email or web address] Insurance Assigned Provider 08/05/24 documented as of this encounter Additional Source Comments The information contained in this document represents components of the legal health record. It is not the complete legal health record.[facility]
--- OUTSIDE RECORDS SUMMARY | 2025-04-03 12:10 | XMS_ITS | Clinical Summary ---
Author Organization [facility] Address [address] [facility] [address] [place] [address] Phone Care Team Providers Care Customer Sales Specialist Name Role Phone Emmanuel Lanza CNP Primary Care Provider [phone] Jarguti Jiménez MD Unavailable [phone] Michael Hargrove MD Unavailable [phone] Zoila Hart MD Unavailable Emmanuel Lanza CNP Unavailable [phone] Allergies No known active allergies Medications metoprolol [...] DAY 270 capsule 1 03/18/20 25 Active valsartan (DIOVAN) 40 MG tablet Take 1 tablet by mouth 2 (two) times a day. 03/21/20 Active gabapentin (NEURONTIN) 300 MG capsule Take 1 capsule (300 mg total) by mouth 3 (three) times a day. 270 capsule 1 09/22/19 025 Discontinued predniSONE (DELTASONE) 20 MG tablet Take 1 tablet (20 mg total) by mouth daily with breakfast. 5 tablet 09/29/19 025 Discontinued(St op Taking at Discharge) Active Problems Problem Noted Date Diagnosed Date Choroidal neovascularization of left eye 025 Assessment & Plan (07/17/2024 8:16 AM EDT): [place] [facility] satisfied with his care locally [...] and will track. 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 Following with [place]. Cullen, [place] [facility] Currently on asa 81mg daily for anticoagulation. Will hold this medication 7 days prior to surgery. -EKG today shows first degree AV block 2/2 Maze procedure. will obtain previous EKG from cardiology for comparison. 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 Imaging was negative. Assessment & Plan (01/12/2023 [...] tear of the left supraspinatous. Following with Elia Banks and plans to undergo arthroscopic repair on 09/19/[address] Mclean. Patient is average risk for severe complications due to surgery. Encounters Date Type Department Care Team Description 03/27/2025 1:20 PM EST Office Visit [facility] at [address] [address] Marika Bernard NP Visit for wound check (Primary Dx) 03/16/2025 Refill [facility] [place] [address] Emmanuel Lanza CNP Medication Refill 03/14/2025 11:30 AM EST - 03/14/2025 12:00 PM EST Surgery [facility] Admitting Dept Virtual Department [address] [place] [address] Raghu Lu MD ESOPHAGOGASTRODUODENOSCOPY 03/14/2025 11:18 AM EST Anesthesia Event [facility] Virtual Department [address] [place] [address] David Man MD, LAZARO 03/14/2025 10:22 AM EST - 03/14/2025 1:02 PM EST Hospital Encounter [facility] Virtual Department [address] [place] [address] Raghu Lu MD Discharge Disposition: Home or Self Care 03/14/2025 Procedure Pass [facility] Admitting [facility] Virtual Department [address] [place] [address] 03/05/2025 12:15 PM EST Pre-Admission Testing Pre Procedure Evaluation [address] [place] [address] Raghu Lu MD from Last 3 Months [...] Sign Reading Time Taken Comments Blood Pressure 139/85 03/27/2025 1:44 PM EST Pulse 72 03/27/2025 1:44 PM EST Temperature 36.5 C (97.7 F) 03/27/2025 1:44 PM EST Respiratory Rate 16 03/27/2025 1:44 PM EST Oxygen Saturation 98% 03/27/2025 1:4 4 PM EST Inhaled Oxygen Concentration 60% 10:00 PM EST Weight 115.7 kg (255 lb) 03/27/2025 1:4 4 PM EST patient reported Height 182.9 cm (6') 03/27/2025 1:44 PM EST patient reported Body Mass Index 34.58 03/27/2025 1:44 PM EST Plan of Treatment Upcoming Encounters Date Type Department Care Team (Late st Contact Info) Description 07/19/2025 8:00 AM EDT Office Visit [facility] [address] [place] [address] Emmanuel Lanza, MANSOOR [address] [facility] [place] [address] Health Maintenance Due Date Last Done Comments COLOGUARD 1999 FIT TEST 1999 FOBT 1999 SIGMOIDOSCOPY 1999 VIRTUAL COLONOSCOPY 1999 COVID-19 VACCINE ( season) 2025 01/13/2025, 01/15/2024, 01/30/2023, Additional history exists DEPRESSION SCREENING 07/10/2025 07/10/2024 CREATININE LEVEL 07/17/2025 07/17/2024, , 10/14/2022, Additional history exists POTASSIUM LEVEL 07/17/2025 07/17/2024, 06/30, 10/14/2022, Additional history exists BLOOD PRESSURE 09/24/2025 03/27/2025 LIPID PANEL 07/17/2029 07/17/2024, 10/01, 10/15/2022, Additional [...] this topic Medical Devices Implanted Type Area Materials Buyer Device Identifier Shelf Expiration Date Model / Serial / Lot Ring Annuloplasty 32mm Heart Mitral Physiologic Ea - [id number] Implanted:Qty: 1 on 03/21/2017 by Jazmín Motley MD at [facility] Heart [employer] 12/27/2021 [id number] / [id number] / Description:mitral valve [place] Suture 4.5mm Arthroscopy Reelx Stt Peek Ss Core Knotless Shapr Tip Expandable Bx/5ea - [id number] Implanted:Qty: 3 on 09/19/2020 by Socrates Mclean DO at [facility] Left: Acromial Process [employer] 07/08/2022 [id number] / / [id number] Kit [place] 4.75mm Suture Healicoil Regensorb Repair 3 Sutures Kt/3 - [id number] Implanted:Qty: 2 on 09/19/2020 by Socrates Mclean DO at [facility] Left: Acromial Process [employer] 05/13/2023 [id number] / / [id number] Procedures Procedure Name Priority Date/Time Associated Diagnosis Comments TISSUE EXAM Routine 03/14/2025 11:24 AM EST W[place] COLSC FLX W/RMVL OF TUMOR POLYP LESION SNARE TQ 03/14/2025 11:17 AM EST Dysphagia, pharyngoesophageal phase Hx of colonic polyps Special Needs Hist TIA(no residual); MV repair(Dr Cullen),hist A-flutter; on Eliquis(instructed by office); wears hearing aids WV COLONOSCOPY W/BIOPSY SINGLE/MULTIPLE 03/14/2025 11:17 AM EST Dysphagia, pharyngoesophageal phase Hx of colonic polyps Special Needs Hist TIA(no residual); MV repair(Dr Cullen),hist A-flutter; on Eliquis(instructed by office); wears hearing aids WV COLONOSCOPY FLX DX W/HECTOR J SPEC WHEN PFRMD 03/14/2025 11:17 AM EST Dysphagia, pharyngoesophageal phase Hx of colonic polyps Special Needs Hist TIA(no residual); MV repair(Dr Cullen),hist A-flutter; on Eliquis(instructed by office); wears hearing aids WV EGD ABLATE TUMOR POLYP/LESION W/DILATION& WIRE 03/14/2025 11:17 AM EST Dysphagia, pharyngoesophageal phase Hx of colonic polyps Special Needs Hist TIA(no residual); MV repair(Dr Cullen),hist A-flutter; on Eliquis(instructed by office); wears hearing aids W[place] EDG TRANSORAL BIOPSY SINGLE/MULTIPLE 03/14/2025 11:17 AM EST Dysphagia, pharyngoesophageal phase Hx of colonic polyps Special Needs Hist TIA(no residual); MV repair(Dr Cullen),hist A-flutter; on Eliquis(instructed by office); wears hearing aids WV ESOPHAGOGASTRODUODENOSCOP Y TRANSORAL DIAGNOSTIC 03/14/2025 11:17 AM [...] the morphologic characteristics of Helicobacter. 12:24 PM [facility] at 1224 EST Clinical History Pre-op diagnosis: Dysphagia, pharyngoesophageal phase [R13.14 EGD: Gastritis 12:24 PM [facility] Gross Description A. STOMACH: Received in [...] a single cassette labeled B1. 12:24 PM [facility] Grossed By Manish Ngo 12:24 PM [facility] Result Priority Level Routine 12:24 PM [facility] Disclaimer By their signature ray suazo, the pathologist listed as making the Final Diagnosis certifies that they have personally reviewed the case and confirmed the diagnosis. All slides and stains were of sufficient quality to establish the diagnosis, unless otherwise stated. Due to loss of elastic tension and/or tissue shrinkage in formalin, the clinical sizes of tissue specimens may be larger than those provided in this report. 12:24 PM [facility] Procedure ESOPHAGOGASTRODUODEN OSCOPY COLONOSCOPY 12:24 PM [facility] Gastrointestinal Tissue (Stomach) 03/14/2025 11:24 AM EST 03/14/2025 1:09 PM EST Comment:Pre-op diagnosis: Dysphagia, pharyngoesophageal phase [R13.14] Hx of colonic polyps [Z86.0100] Gastrointestinal Tissue (Gastroesophageal Junction) 03/14/2025 11:25 AM EST 03/14/2025 1:09 PM EST Comment:Pre-op diagnosis: Dysphagia, pharyngoesophageal phase [R13.14] Hx of colonic polyps [Z86.0100] us Raghu Lu MD LAB PATHOLOGY ORDERABLES Fin al Result [address] [address] * ENDOSCOPY PROCEDURE (03/14/2025 11:11 AM EST) Narrative Transcriptions Raghu Lu MD - 03/14/2025 11:11 AM EST [facility] Patient Name: Jonnathan Jhonny Attending MD:: RAGHU LU MD, Procedure Date: 03/14/2025 11:11AM Date of : 1955 Age: 69 Admit Type: Outpatient Gender: Male Room: [place] [address] Referring MD: EMMANUEL LANZA Exam Type: Upper [...] 11:11 AM Procedure Code(s): --- Professional --- 12727, Esophagogastroduodenoscopy, flexible, transoral; withinsertion of guide wire followed by passage of dilator(s) through esophagusover guide wire 20505, Esophagogastroduodenoscopy, flexible, transoral; with transendoscopic balloon dilation of esophagus (less than 30 mmdiameter) --- Technical --- 72196, Esophagogastroduodenoscopy, flexible, transoral; withinsertion of guide wire followed by passage of dilator(s) through esophagusover guide wire 67804, Esophagogastroduodenoscopy, flexible, transoral; with transendoscopic balloon dilation [...] bleeding R13.10, Dysphagia, unspecified CPT copyright 2021 [employer]. All rights reserved. The codes documented in this report are preliminary and upon invoice coder reviewmay be revised to meet current compliance requirements. Procedure Date: 03/14/2025 11:11:[address] [place] [address] Emmanuel Lanza [facility] GI PROCEDURE ORDERABLES F inal Result * ENDOSCOPY, COLON (03/14/2025 11:10 AM EST) Narrative Transcriptions Raghu Lu MD - 03/14/2025 11:10 AM EST [facility] Patient Name: Jonnathan Barry Attending MD:: RAGHU LU MD, Procedure Date: 03/14/2025 11:10AM Date of : 1955 Age: 69 Admit Type: Outpatient Gender: Male Room: [place] [address] Referring MD: EMMANUEL LANZA Exam Type: Colonoscopy [...] monitored continuously. The Olympus adult variable colonoscope [id number] #3 was introduced through the anus and [...] 11:10 AM Procedure Code(s): --- Professional --- 20050, Colonoscopy, flexible; diagnostic, including collection of specimen(s) by brushing or washing, when performed (separateprocedure) --- Technical --- 25478, Colonoscopy, flexible; diagnostic, including collection of specimen(s) by brushing or washing, when performed (separateprocedure) Diagnosis Code(s): --- Professional --- Z86.010, Personal history of colonic polyps K57.30, Diverticulosis of large intestine without perforation or abscess without bleeding --- Technical --- Z86.010, Personal history of colonic polyps K57.30, Diverticulosis of large intestine without perforation or abscess without bleeding CPT copyright 2021 [employer]. All rights reserved. The codes documented in this report are preliminary and upon invoice coder reviewmay be revised to meet current compliance requirements. Procedure Date: 03/14/2025 11:10:[address] [place] [address] Emmanuel Lanza [facility] GI PROCEDURE ORDERABLES F inal Result * (ABNORMAL) Comprehensive metabolic panel (07/17/2024 8:22 AM EDT) SODIUM 142 133 - 146 mmol/L [facility] POTASSIUM 4.9 3.3 - 5.1 mmol/L [facility] CHLORIDE 106 96 - 108 mmol/L [facility] CO2 29 21 - 35 mmol/L [facility] BUN 17 6 - 19 mg/dL [facility] CREATININE 1.00 0.5 - 1.5 mg/dL [facility] GLUCOSE 113(H) 70 - 99 mg/dL [facility] ALBUMIN 4.2 3.9 - 4.8 g/dL [facility] TOTAL PROTEIN 6.8 6.5 - 8.0 g/dL [facility] CALCIUM 9.7 8.4 - 10.3 mg/dL [facility] ALKALINE PHOSPHATASE 67 39 - 117 U/L [facility] TOTAL BILIRUBIN 0.7 0.0 - 1.2 mg/dL [facility] AST 23 0 - 37 U/L [facility] ALT 20 0 - 40 U/L [facility] GLOBULIN 2.6 1 - 4.8 g/dL [facility] EGFR 81 >59 mL/min/1.7 3m2 [facility] Comment:Estimated glomerular filtration rate calculated using the CKD-EPI refit equation. ANION GAP 12 10 - 20 mmol/L [facility] Blood 07/17/2024 8:22 AM EDT 07/17/2024 8:24 AM EDT [facility] LAB BLOOD BKR ORDERABLES Final Result [address] [address] * (ABNORMAL) Lipid panel (07/17/2024 8:22 AM EDT) HDL 42 mg/dL [facility] Comment: Interpretation <40 mg/dL: Low HDL cholesterol (major risk factor for CHD) Greater than or equal to 60 mg/dL: High HDL cholesterol ( negative risk factor for CHD) HDL - cholesterol is affected by a number of factors, e.g. smoking, excerise, hormones, sex and age. CHOLESTEROL 104 0 - 240 mg/dL [facility] TRIGLYCERIDES 139 30 - 160 mg/dL [facility] LDL 34(L) 50 - 129 mg/dL [facility] Comment: LDL levels in terms of risk for coronary heart disease: <100 mg/dL: Optimal 100-129 mg/dL: Near or above optimal 130-159 mg/dL: Borderline high 160-189 mg/dL: High >190 mg/dL: Very High CARDIAC RISK RATIO 2.5(L) 3.4 - 5.0 C [facility] Blood 07/17/2024 8:22 AM EDT 07/17/2024 8:24 AM EDT [facility] LAB BLOOD BKR ORDERABLES Final Result [address] [address] * Hepatitis C antibody, qualitative (05/07/2019 11:19 AM EST) HCV NON-REACTIV E NON-REACTI VE [facility] Blood 05/07/2019 11:1 9 AM EST 05/07/2019 11:21 AM EST us [place] Kofi CHIROPRACTIC PHYSICIAN LAB BLOOD BKR ORDERABLES Final Result [facility] [address] [place] [address] from Last 3 Months or Most Recently Relevant to Health Maintenance Insurance [employer] [facility] EXTENSION MEDICARE SUPPLEMENT MEDICARE PART A & B [employer] MEDICARE SUPPLEMENT MEDICARE PART A & B EXT[employer] MEDICARE SUPPLEMENT MEDICARE PART A & B [employer] MEDICARE SUPPLEMENT MEDICARE PART A & B [employer] MEDICARE SUPPLEMENT MEDICARE PART A & B [facility] EXTENSION MEDICARE SUPPLEMENT MEDICARE PART A & B [facility]PP[facility] MEDICARE PART A & B [facility] SUPPLE[facility] MEDICARE PART A & B [facility] MEDICARE SUPPLEMENT MEDICARE PART A & B Advance Directives For more information, please contact: [phone] (9AM - 5PM 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 05/03/2017 2:13 PM PROXY * Full Code (Latest Code Status on File) Date Activated Date Inactivated Comments 10/14/2022 6:34 PM Question Answer Comments Code Status Confirmed With: Patient * Full Code (Presumed) Date Activated Date Inactivated Comments 03/21/2017 12:53 PM 03/26/2017 12:43 PM Care Teams Customer Sales Specialist Relationship Specialty Start Date End Date Emmanuel Lanza CNP [address] [facility] [place] [address] [email or web address] PCP - General Family Medicine 04/20/19 Jagruti Jiménez MD [address] [place] [address], [address] [place] [address] [email or web address] 05/07/19 Michael Hargrove MD [address] [place] [address] Cardiology 10/10/20 Zoila Hart MD [address] [place] [address] Dermatology 07/15/23 Emmanuel Lanza CNP [address] [place], [place] [address] [place] [address] [email or web address] Insurance Assigned Provider 08/05/24 Additional Source Comments The information contained in this document represents components of the legal health record. It is not the complete legal health record.[facility]
--- OUTSIDE RECORDS SUMMARY | 2025-04-03 12:10 | XMS_ITS | Encounter Summary ---
Author Organization [facility] Address [address] [place] [address] Phone Care Team Providers Care Illuminator Name Role Phone Dallas Kirby CNP Primary Care Provider [phone] Richardson Mckoen MD Unavailable [phone] Jagruti Jiménez MD Unavailable [phone] Zoila Hart MD Unavailable Michael Hargrove MD Unavailable [phone] Minerva Mcmillan PA-C Unavailable [phone] Dorian Arana DO Unavailable Rianna Reina OT Unavailable [phone] Zoila Hart MD Unavailable [phone] Dallas Kirby CNP Unavailable [phone] Encounter Details Date Type Department Care Team (Late st Contact Info) Description 08/13/2020 Prep for Surgery [facility] Medical [facility] Orthopedics & Sports Medicine [address] [place] [id number] Socrates Mclean DO [address] [place] [address] Orthopedics & Sports Medicine, [facility]. 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- Primary documented in this encounter Additional Health Concerns Assessment Noted Time PHQ-2 Depression Total Score: 0 11/21/19 10:41 AM EDT documented as of this encounter Care Teams Illuminator Relationship Specialty Start Date End Date Dallas Kirby CNP [address] [place] [address], [address] [place] [address] [email or web address] PCP - General Family Medicine 04/20/19 Richardson Mckeon MD [address] [place] [address], [address] [place] [address] [email or web address] Insurance Assigned Provider 08/06/23 08/05/24 Jagruti Jiménez MD [address] [place] [address], [address] [place] [address] [email or web address] Ophthalmology 05/07/19 Zoila Hart MD [address] [place] [address] Dermatology 11/21/19 07/14/23 Michael Hargrove MD [address] [place] [address] [place] [address] Cardiology 10/10/20 Minerva Mcmillan PA-C [address] [place] [address] [email or web address] Physician Interior Design Project Manager Hematology 10/30/20 07/05/21 Dorian Arana DO [address] [place] [address] [email or web address] Primary Oncologist Hematology and Oncology 10/30/20 2 Rianna Reina, OT [address] [place] [address] [email or web address] Transitions Spot SprayerBarrel Drum Cutter Therapy 10/15/22 10/18/22 Zoila Hart MD [address] [place] [address] Dermatology 07/15/23 Dallas Kirby CNP [address] [facility] [place] [address] [email or web address] Insurance Assigned Provider 08/05/24 documented as of this encounter Additional Source Comments The information contained in this document represents components of the legal health record. It is not the complete legal health record.[facility]
--- OUTSIDE RECORDS SUMMARY | 2025-04-03 12:10 | XMS_ITS | Encounter Summary ---
Author Organization [facility] Address [address] [place] [address] [place] [address] Phone Care Team Providers Care Rag Willow Operator Name Role Phone Gutierrez Guadalupe DO Primary Care Provider [phone] Michael Hargrove MD Unavailable [phone] Dallas Kirby CNP Primary Care Provider Richardson Mckeon MD Unavailable Jagruti Jiménez MD Unavailable [phone] Zoila Hart MD Unavailable [phone] Michael Hargrove MD Unavailable Minreva Mcmillan PA-C Unavailable Dorian Arana DO Unavailable Rianna Reina OT Unavailable Zoila Hart MD Unavailable Dallas Kirby CNP Unavailable Encounter Details Date Type Department Care Team (Late st Contact Info) Description 12/09/2017 Ancillary Orders [facility], X-Ray - [facility] [address] [place] [address] Juan José Rivera MD [address] [place] [address], [address] [place] [address] Social History Tobacco Use Types Packs/Day Years [...] Description 07/19/2025 8:00 AM EDT Office Visit [address] [address] Dallas Kirby CNP [address] [place] [address], [address] [place] [address] [email or web address] documented as of this encounter Visit Diagnoses Not on filedocumented in this encounter Additional Health Concerns Infection Onset Date Last Indicated Resolved Time CoV-Exposed Comment:Recent close contact 04/28/2020 04/28/2020 05/12/2020 1:24 AM EST documented as of this encounter Care Teams Rag Willow Operator Relationship Specialty Start Date End Date Gutierrez Guadalupe DO [address] [place] [address] PCP - General Internal Medicine 01/28/17 04/19/19 Dallas Kirby CNP [address] [place] [address], [address] [place] [address] PCP - General Family Medicine 04/20/19 Michael Hargrove MD [address] [place] [address] [employer] Director Cardiology 01/28/17 04/19/19 Richardson Mckeon MD [address] [place] [address], [address] [place] [address] [email or web address] Insurance Assigned Provider 08/06/23 08/05/24 Jagruti Jiménez MD [address] [place] [address], [address] [place] [address] [email or web address] 05/07/19 Zoila Hart MD [address] [address] Dermatology 11/21/19 07/14/23 Michael Hargrove MD [address] [place] [address] Cardiology 10/10/20 Minerva Mcmillan PA-C [address] [place] [address] [email or web address] Physician Manager Food Hematology 10/30/20 07/05/21 Dorian Arana DO [address] [place] [address] [email or web address] Primary Oncologist Hematology and Oncology 10/30/20 2 Rianna Reina, OT [address] [place] [address] [email or web address] Transitions Supervisor PaintTool And Die Inspector Therapy 10/15/22 10/18/22 Zoila Hart MD [address] [address] Dermatology 07/15/23 Dallas Kirby CNP [address] [facility] [place] [address] Insurance Assigned Provider 08/05/24 documented as of this encounter Additional Source Comments The information contained in this document represents components of the legal health record. It is not the complete legal health record.[facility]
--- OUTSIDE RECORDS SUMMARY | 2025-04-03 12:10 | XMS_ITS | Encounter Summary ---
Author Organization [facility] Address [address] [place] [address] Phone Care Team Providers Care Gravure Press Set Up Operator Name Role Phone Dallas Kirby SAFETY ENGINEER PRESSURE VESSELS Primary Care Provider [phone] Richardson Mckeon MD Unavailable [phone] Jagruti Jiménez MD Unavailable [phone] Zoila Hart MD Unavailable [phone] Michael Hargrove MD Unavailable Minerva Mcmillan PA-C Unavailable [phone] Dorian Arana DO Unavailable [phone] Rianna Renia OT Unavailable [phone] Zoila Hart MD Unavailable Dallas Kirby CNP Unavailable [phone] Encounter Details Date Type Department Care Team (Late st Contact Info) Description 04/15/2020 Procedure Pass [facility], [address] [address] Social History Tobacco Use Types Packs/Day Years [...] Description 07/19/2025 8:00 AM EDT Office Visit [address] [place] [address] Dallas Kirby CNP 22 [facility], [address] [place] [address] [email or web address] documented as of this encounter Visit Diagnoses Not on filedocumented in this encounter Additional Health Concerns Infection Onset Date Last Indicated Resolved Time CoV-Exposed Comment:Recent close contact 04/28/2020 04/28/2020 05/12/2020 1:24 AM EST Assessment Noted Time PHQ-2 Depression Total Score: 0 11/21/19 10:41 AM EDT documented as of this encounter Care Teams Gravure Press Set Up Operator Relationship Specialty Start Date End Date Dallas Kirby CNP [address] [place] [address], [address] [address] PCP - General Family Medicine 04/20/19 Richardson Mckeon MD [address] [place] [address], [address] [place] [address] [email or web address] Insurance Assigned Provider 08/06/23 08/05/24 Jagruti Jiménez MD [address] [place] [address], [address] [place] [address] [email or web address] 05/07/19 Zoila aHrt MD [address] [place] [address] Dermatology 11/21/19 07/14/23 Michael Hargrove MD [address] [place] [address] [place] [address] Cardiology 10/10/20 Minerva Mcmillan PA-C 30 [place] [address] Physician Bobcat Operator Hematology 10/30/20 07/05/21 Dorian Arana DO [address] [place] [address] [email or web address] .[email or web address] Primary Oncologist Hematology and Oncology 10/30/20 2 Rianna Reina, OT 30 [place] [address] [email or web address] Transitions Security MonitorSap Data Analyst Therapy 10/15/22 10/18/22 Zoila Hart MD [address], [place] [address] Dermatology 07/15/23 Dallas Kirby CNP 22 [facility], [address] [place] [address] [email or web address] Insurance Assigned Provider 08/05/24 documented as of this encounter Additional Source Comments The information contained in this document represents components of the legal health record. It is not the complete legal health record.[facility]
--- OUTSIDE RECORDS SUMMARY | 2025-04-03 12:11 | XMS_ITS | Encounter Summary ---
Author Organization [facility] Address [address] [place] [address] [place] [address] Phone Care Team Providers Care Pulling Unit Operator Name Role Phone Dallas Kirby CNP Primary Care Provider [phone] Richardson Mckeon MD Unavailable [phone] Jagruti Jiménez MD Unavailable [phone] Zoila Hart MD Unavailable [phone] Michael Hargrove MD Unavailable [phone] Rianna Reina OT Unavailable [phone] Zoila Hart MD Unavailable Dallas Kirby CNP Unavailable [phone] Encounter Details Date Type Department Care Team (Late st Contact Info) Description 10/14/2022 Procedure Pass [facility], Ct Scan - [address] [address] Social History Tobacco Use Types Packs/Day Years [...] 12:25 PM EDT Daniela Gallagher, RN * [place] Suicide Severity Rating Scale (Screener/Recent Self-Report) Question [...] Description 07/19/2025 8:00 AM EDT Office Visit [facility] 22 [place] [address] Dallas Kirby CNP [address] [place] [address], [address] [place] [address] [email or web address] documented as of this encounter Visit Diagnoses Not on filedocumented in this encounter Additional Health Concerns Assessment Noted Time PHQ-2 Depression Total Score: 0 07/11/19 23 3:26 PM EST documented as of this encounter Care Teams Pulling Unit Operator Relationship Specialty Start Date End Date Dallas Kirby CNP [address] [place] [address], [address] [place] [address] [email or web address] PCP - General Family Medicine 04/20/19 Richardson Mckeon MD [address] [place] [address], [address] [place] [address] [email or web address] Insurance Assigned Provider 08/06/23 08/05/24 Jagruti Jiménez MD [address] [place] [address], [address] [place] [address] [email or web address] 05/07/19 Zoila Hart MD [address] [place] [address] Dermatology 11/21/19 07/14/23 Michael Hargrove MD [address] [place] [address] [address] [place] [address] Cardiology 10/10/20 Rianna Reina, OT [address] [place] [address] [email or web address] Transitions Observer [employer]ity [employer] Founder And President Therapy 10/15/22 10/18/22 Zoila Hart MD [address] [place] [address] Dermatology 07/15/23 Dallas Kirby CNP 22 [facility], [address] [place] [address] [email or web address] Insurance Assigned Provider 08/05/24 documented as of this encounter Additional Source Comments The information contained in this document represents components of the legal health record. It is not the complete legal health record.[facility]
--- OUTSIDE RECORDS SUMMARY | 2025-04-03 12:11 | XMS_ITS | Encounter Summary ---
Author Organization [facility] Address [facility] [address] [place] [address] Phone Care Team Providers Care Insole Taper Name Role Phone Gutierrez Guadalupe DO Primary Care Provider [phone] Michael Hargrove MD Unavailable [phone] Dallas Kirby CNP Primary Care Provider [phone] Richardson Mckoen MD Unavailable Jagruti Jiménez MD Unavailable [phone] Zoila Hart MD Unavailable Michael Hargrove MD Unavailable Minerva Mcmillan PA-C Unavailable Dorian Arana DO Unavailable [phone] Rianna Reina OT Unavailable Zoila Hart MD Unavailable Dallas Kirby CNP Unavailable Encounter Details Date Type Department Care Team (Latest Contact Info) Description 12/01/2017 Ancillary Orders Virtual Department 30 [place] [address] Juan José Rivera MD 100 [facility], [address] [place] [address] [email or web address] Sensorineural hearing loss (SNHL) of both [...] Description 07/19/2025 8:00 AM EDT Office Visit [address] [place] [address] Dallas Kirby CNP [address] [place] [address], [address] [place] [address] [email or web address] documented as of this encounter Visit Diagnoses Diagnosis Sensorineural hearing loss (SNHL) of both ears documented in this encounter Additional Health Concerns Infection Onset Date Last Indicated Resolved Time CoV-Exposed Comment:Recent close contact 04/28/2020 04/28/2020 05/12/2020 1:24 AM EST documented as of this encounter Care Teams Insole Taper Relationship Specialty Start Date End Date Gutierrez Guadalupe DO [address] [place] [address] PCP - General Internal Medicine 01/28/17 04/19/19 Dallas Kirby CNP [address] [place] [address], [address] [place] [address] PCP - General Family Medicine 04/20/19 Michael Hargrove MD [address] [place] [address] Greenhouse Specialist Cardiology 01/28/17 04/19/19 Richardson Mckeon MD [address] [place] [address], [address] [place] [address] [email or web address] Insurance Assigned Provider 08/06/23 08/05/24 Jagruti Jiménez MD [address] [place] [address], [address] [place] [address] [email or web address] 05/07/19 Zoila Hart MD [address] [place] [address] Dermatology 11/21/19 07/14/23 Michael Hargrove MD [address] [place] [address] Cardiology 10/10/20 Minerva Mcmillan PA-C [address] [place] [address] [email or web address] Physician Athletic Equipment Manager Hematology 10/30/20 07/05/21 Dorian Arana DO 30 [place] [address] [email or web address] Primary Oncologist Hematology and Oncology 10/30/20 2 Rianna Reina, OT 30 [place] [address] [email or web address] Transitions Founder President And CeoJava Engineer Therapy 10/15/22 10/18/22 Zoila Hart MD [address] [address] Dermatology 07/15/23 Dallas Kirby CNP [address] [place] [address], [address] [place] [address] [email or web address] Insurance Assigned Provider 08/05/24 documented as of this encounter Additional Source Comments The information contained in this document represents components of the legal health record. It is not the complete legal health record.[facility]
--- OUTSIDE RECORDS SUMMARY | 2025-04-03 12:11 | XMS_ITS | Encounter Summary ---
Author Organization [facility] Address [address] [place] [address] Phone Care Team Providers Care Branch Service Leader Name Role Phone Gutierrez Guadalupe DO Primary Care Provider [phone] Michael Hargrove MD Unavailable Dallas Kirby CNP Primary Care Provider [phone] Richardson Mckeon MD Unavailable [phone] Jagruti Jiménez MD Unavailable [phone] Zoila Hart MD Unavailable [phone] Michael Hargrove MD Unavailable [phone] Minerva Mcmillan PA-C Unavailable [phone] Dorian Arana DO Unavailable [phone] Rianna Reina OT Unavailable Zoila Hart MD Unavailable Dallas Kirby CNP Unavailable Encounter Details Date Type Department Care Team (Late st Contact Info) Description 03/21/2017 Procedure Pass [facility] PERIOPERATIVE DEPT [address] [place] [address] Social History Tobacco Use Types [...] Description 07/19/2025 8:00 AM EDT [facility] [address] [place] [address] Dallas Kirby CNP [address] [place] [address], [address] [place] [address] [email or web address] documented as of this encounter Visit Diagnoses Not on filedocumented in this encounter Additional Health Concerns Infection Onset Date Last Indicated Resolved Time CoV-Exposed Comment:Recent close contact 04/28/2020 04/28/2020 05/12/2020 1:24 AM EST documented as of this encounter Care Teams Branch Service Leader Relationship Specialty Start Date End Date Gutierrez Guadalupe DO [address] [place] [address] PCP - General Internal Medicine 01/28/17 04/19/19 Dallas Kirby CNP [address] [place] [address], [address] [place] [address] PCP - General Family Medicine 04/20/19 Michael Hargrove MD [address] [place] [address] [place] [address] Drilling Field Specialist Cardiology 01/28/17 04/19/19 Richardson Mckeon MD [address] [place] [address], [address] [place] [address] [email or web address] Insurance Assigned Provider 08/06/23 08/05/24 Jagruti Jiménez MD 22 [facility], [address] [place] [address] [email or web address] 05/07/19 Zoila Hart MD [address] [place] [address] Dermatology 11/21/19 07/14/23 Michael Hargrove MD [address] [place] [address] Cardiology 10/10/20 Minerva Mcmillan PA-C [address] [place] [address] Physician Child And Family Services Worker Hematology 10/30/20 07/05/21 Dorian Arana DO [address] [place] [address] [email or web address] Primary Oncologist Hematology and Oncology 10/30/20 2 Rianna Reina, OT 30 [place] [address] [email or web address] Transitions Pump Press OperatorYoga Teacher Therapy 10/15/22 10/18/22 Zoila Hart MD [address] [place] [address] Dermatology 07/15/23 Dallas Kirby CNP [address] [place] [address], [address] [place] [address] [email or web address] Insurance Assigned Provider 08/05/24 documented as of this encounter Additional Source Comments The information contained in this document represents components of the legal health record. It is not the complete legal health record.[facility]
--- OUTSIDE RECORDS SUMMARY | 2025-04-03 12:11 | XMS_ITS | Encounter Summary ---
Author Organization [facility] Address [address] [place] [address] [place] [address] Phone Care Team Providers Care Color Separation Photographer Name Role Phone Dallas Kirby ELECTRICAL SUBCONTRACTOR Primary Care Provider [phone] Richardson Mckeon MD Unavailable [phone] Jagruti Jiménez MD Unavailable [phone] Zoila Hart MD Unavailable Michael Hargrove MD Unavailable Rianna Reina OT Unavailable [phone] Zoila Hart MD Unavailable Dallas Kirby ELECTRICAL SUBCONTRACTOR Unavailable Encounter Details Date Type Department Care Team (Late st Contact Info) Description 08/06/2021 Telephone [facility] [address] [place], [place] [phone] Dallas Kirby CNP 22 [facility], [address] [place] [address] [email or web address] Social History Tobacco Use Types Packs/Day Years [...] high school, GED, job training, learning the Northern Irish language, technical skills, or developing parenting skills)? [...] 10:50 AM EDT Saundra Tate RN * [place] Suicide Severity Rating Scale (Screener/Recent Self-Report) Question Answer Date of Assessment Author 1. Wish to be (Past 1 Month) No 022 10:50 AM EDT Saundra Tate, REJI 2. Non-Specific Active Suici abdifatah Thoughts (Past 1 Month) No 08/06/2021 10:50 AM EDT Sera Tate RN 6. Suicidal Behavior (Lifetime) No 10:50 AM EDT Saundra Tate, RN documented as of this encounter Plan of Treatment Upcoming Encounters Date Type Department Care Team (Late st Contact Info) Description 07/19/2025 8:00 AM EDT Office Visit [facility] 22 [place] [address] Dallas Kirby CNP [address] [place] [address], [address] [place] [address] [email or web address] documented as of this encounter Visit Diagnoses Not on filedocumented in this encounter Additional Health Concerns Assessment Noted Time PHQ-2 Depression Total Score: 0 07/07/19 22 9:01 AM EST documented as of this encounter Care Teams Color Separation Photographer Relationship Specialty Start Date End Date Dallas Kirby CNP [address] [place] [address], [address] [address] [email or web address] PCP - General Family Medicine 04/20/19 Richardson Mckeon MD [address] [place] [address], [address] [address] [email or web address] Insurance Assigned Provider 08/06/23 08/05/24 Jagruti Jiménez MD [address] [place] [address], [address] [address] [email or web address] 05/07/19 Zoila Hart MD [address] [place] [address] Dermatology 11/21/19 07/14/23 Michael Hargrove MD [address] [place] [address] [place] [address] Cardiology 10/10/20 Rianna Reina, OT [address] [place] [address] [email or web address] Transitions Paper Machine TenderLiquid Yeast Supervisor Therapy 10/15/22 10/18/22 Zoila Hart MD [address] [place] [address] Dermatology 07/15/23 Dallas Kirby CNP 22 [facility], [address] [place] [address] [email or web address] Insurance Assigned Provider 08/05/24 documented as of this encounter Additional Source Comments The information contained in this document represents components of the legal health record. It is not the complete legal health record.[facility]
--- OUTSIDE RECORDS SUMMARY | 2025-04-03 12:11 | XMS_ITS | Encounter Summary ---
Author Organization [facility] Address [address] [place] [address] [place] [address] Phone Care Team Providers Care Gold And Silver Assayer Name Role Phone Dallas Kirby CNP Primary Care Provider [phone] Jagruti Jiménez MD Unavailable [phone] Michael Hargrove MD Unavailable Zoila Hart MD Unavailable Dallas Kirby CNP Unavailable Encounter Details Date Type Department Care Team (Latest Contact Info) Description 11/21/2024 Transcribe Orders Virtual Department 30 [place] [address] Munira Doss, DIYA 10 [place], [place] [phone] Dysphagia, unspecified type (Primary Dx) Social History [...] Description 07/19/2025 8:00 AM EDT Office Visit [facility] [address] [place] [address] Dallas Kirby, MANSOOR [address], [address] [place] [address] [email or web address] documented as of this encounter Results * [...] small bowel are unremarkable. Procedure Note Colleen rC MD - 12/14/2024 [place] BARIUM SWALLOW ESOPHAGRAM [...] report originally createdby Inocencio Aragon. Munira Doss VP CARE MANAGEMENT IMG [place] MISC Final Result documented in this encounter Visit Diagnoses Diagnosis Dysphagia, unspecified type- Primary Dysphagia, unspecified type documented in this encounter Additional Health Concerns Assessment Noted Time PHQ-2 Depression Total Score: 0 07/11/19 25 5:16 PM EDT documented as of this encounter Care Teams Gold And Silver Assayer Relationship Specialty Start Date End Date Dallas Kirby CNP [address] [place] [address], [address] [place] [address] PCP - General Family Medicine 04/20/19 Jagruti Jiménez MD [address] [place] [address], [address] [place] [address] [email or web address] Ophthalmology 05/07/19 Michael Hargrove MD [address] [place] [address] [place] [address] Cardiology 10/10/20 Zoila Hart MD [address], [place] [address] Dermatology 07/15/23 Dallas Kirby CNP 22 [facility], [address] [place] [address] [email or web address] Insurance Assigned Provider 08/05/24 documented as of this encounter Additional Source Comments The information contained in this document represents components of the legal health record. It is not the complete legal health record.[facility]
--- OUTSIDE RECORDS SUMMARY | 2025-04-03 12:11 | XMS_ITS | Encounter Summary ---
Author Organization [facility] Address [address] [place] [address] [place] [address] Phone Care Team Providers Care Contractor General Engineering Name Role Phone Dallas Kirby CNP Primary Care Provider [phone] Richardson Mckeon MD Unavailable Jagruti Jiménez MD Unavailable [phone] Zoila Hart MD Unavailable Michael Hargrove MD Unavailable Rianna Reina OT Unavailable [phone] Zoila Hart MD Unavailable [phone] Dallas Kirby CNP Unavailable Encounter Details Date Type Department Care Team (Late st Contact Info) Description 10/14/2022 Procedure Pass [facility], Ct Scan - [address] [address] Social History Tobacco Use Types Packs/Day Years [...] 12:25 PM EDT Daniela Gallagher, RN * [place] Suicide Severity Rating Scale (Screener/Recent Self-Report) Question [...] Description 07/19/2025 8:00 AM EDT Office Visit [facility] 22 [place] [address] Dallas Kirby CNP [address] [place] [address], [address] [place] [address] [email or web address] documented as of this encounter Visit Diagnoses Not on filedocumented in this encounter Additional Health Concerns Assessment Noted Time PHQ-2 Depression Total Score: 0 07/11/19 23 3:26 PM EST documented as of this encounter Care Teams Contractor General Engineering Relationship Specialty Start Date End Date Dallas Kirby CNP [address] [place] [address], [address] [place] [address] [email or web address] PCP - General Family Medicine 04/20/19 Richardson Mkceon MD [address] [place] [address], [address] [place] [address] [email or web address] Insurance Assigned Provider 08/06/23 08/05/24 Jagruti Jiménez MD [address] [place] [address], [address] [place] [address] [email or web address] 05/07/19 Zoila Hart MD [address] [place] [address] Dermatology 11/21/19 07/14/23 Michael Hargrove MD [address] [place] [address] [address] [place] [address] Cardiology 10/10/20 Rianna Reina, OT [address] [place] [address] [email or web address] Transitions Nursing Home ManagerDrawer In Plain Loom Therapy 10/15/22 10/18/22 Zoila Hart MD [address] [place] [address] Dermatology 07/15/23 Dallas Kirby CNP 22 [facility], [address] [place] [address] [email or web address] Insurance Assigned Provider 08/05/24 documented as of this encounter Additional Source Comments The information contained in this document represents components of the legal health record. It is not the complete legal health record.[facility]
--- OUTSIDE RECORDS SUMMARY | 2025-04-03 12:11 | XMS_ITS | Encounter Summary ---
Author Organization [facility] Address [address] [place] [address] [place] [address] Phone Care Team Providers Care Station Air Traffic Control Specialist Name Role Phone Dallas Kirby CNP Primary Care Provider [phone] Jagruti Jiménez MD Unavailable [phone] Michael Hargrove MD Unavailable [phone] Zoila Hart MD Unavailable [phone] Dallas Kirby CNP Unavailable Encounter Details Date Type Department Care Team (Late st Contact Info) Description 03/14/2025 Procedure Pass [facility] Admitting Dept Virtual Department 30 [place] [address] Social History Tobacco Use Types Packs/Day Years [...] 03/14/2025 10:49 AM Angela Myrick RN * [place] Suicide Severity Rating Scale (Screener/Recent Self-Report) Question [...] Description 07/19/2025 8:00 AM EDT Office Visit [address] [place] [address] Dallas Kirby CNP [address] [place] [address], [address] [place] [address] [email or web address] documented as of this encounter Visit Diagnoses Not on filedocumented in this encounter Additional Health Concerns Assessment Noted Time PHQ-2 Depression Total Score: 0 07/11/19 25 5:16 PM EDT documented as of this encounter Care Teams Station Air Traffic Control Specialist Relationship Specialty Start Date End Date Dallas Kirby CNP [address] [place] [address], [address] [place] [address] [email or web address] PCP - General Family Medicine 04/20/19 Jagruti Jiménez MD [address] [place] [address], [address] [place] [address] [email or web address] 05/07/19 Michael Hargrove MD [address] [place] [address] [place] [address] Cardiology 10/10/20 Zoila Hart MD [address] [place] [address] Dermatology 07/15/23 Dallas Kirby CNP 22 [facility], [address] [place] [address] [email or web address] Insurance Assigned Provider 08/05/24 documented as of this encounter Additional Source Comments The information contained in this document represents components of the legal health record. It is not the complete legal health record.[facility]
--- OUTSIDE RECORDS SUMMARY | 2025-04-03 12:11 | XMS_ITS | Encounter Summary ---
Author Organization [facility] Address [facility] [address] [place] [address] Phone Care Team Providers Care Box Bender Name Role Phone Gutierrez Guadalupe DO Primary Care Provider [phone] Michael Hargrove MD Unavailable Dallas Kirby CNP Primary Care Provider [phone] Richardson Mckeon MD Unavailable Jagruti Jiménez MD Unavailable [phone] Zoila Hart MD Unavailable [phone] Michael Hargrove MD Unavailable Minerva Mcmillan PA-C Unavailable Dorian Arana DO Unavailable Rianna Reina OT Unavailable Zoila Hart MD Unavailable Dallas Kirby CNP Unavailable Encounter Details Date Type Department Care Team (Latest Contact Info) Description 12/09/2017 Transcribe Orders [facility] Phleb Main [address] [place] [address] Juan José Rivera MD [address] [facility], [address] [place] [address] [email or web address] Sensory hearing loss, bilateral (Primary [...] Description 07/19/2025 8:00 AM EDT Office Visit [facility] [address] [place] [address] Dallas Kirby, MANSOOR [address] [facility], [address] [place] [address] [email or web address] documented as of this encounter Results * Creatinine/eGFR (12/09/2017 8:04 AM EDT) CREATININE 1.10 0.5 - 1.5 mg/dL [facility] EGFR 71 >59 mL/min/1.7 3m2 [facility] Comment:If patient is black, multiply result by 1.159. Estimated glomerular filtration rate calculated using the CKD-EPI equation. Blood 12/09/2017 8:04 AM EDT 12/09/2017 8:07 AM EDT us Juan José Rivera MD LAB BLOOD BKR ORDERABLES Final Result [facility] [address] [place] [address] documented in this encounter Visit Diagnoses Diagnosis Sensory hearing loss, bilateral- Primary documented in this encounter Additional Health Concerns Infection Onset Date Last Indicated Resolved Time CoV-Exposed Comment:Recent close contact 04/28/2020 04/28/2020 05/12/2020 1:24 AM EST documented as of this encounter Care Teams Box Bender Relationship Specialty Start Date End Date Gutierrez Guadalupe DO [address] [place] [address] PCP - General Internal Medicine 01/28/17 04/19/19 Dallas Kirby CNP [address] [place] [address], [address] [place] [address] PCP - General Family Medicine 04/20/19 Michael Hargrove MD [address] [place] [address] [place] [address] Flower Grader Cardiology 01/28/17 04/19/19 Richardson Mckeon MD [address] [place] [address], [address] [place] [address] Insurance Assigned Provider 08/06/23 08/05/24 Jagruti Jiménez MD [address] [place] [address], [address] [place] [address] [email or web address] 05/07/19 Zoila Hart MD [address] [place] [address] Dermatology 11/21/19 07/14/23 Michael Hargrove MD [address] [place] [address] [place] [address] Cardiology 10/10/20 Minerva Mcmillan PA-C [address] [place] [address] Physician Feed Handler Hematology 10/30/20 07/05/21 Dorian Arana DO [address] [place] [address] [email or web address] Primary Oncologist Hematology and Oncology 10/30/20 2 Rianna Reina, OT [address] [place] [address] [email or web address] Transitions Quiller HandPest Control Service Representative Therapy 10/15/22 10/18/22 Zoila Hart MD [address] [place] [address] Dermatology 07/15/23 Dallas Kirby CNP [address] [facility], [address] [place] [address] [email or web address] Insurance Assigned Provider 08/05/24 documented as of this encounter Additional Source Comments The information contained in this document represents components of the legal health record. It is not the complete legal health record.[facility]
--- OUTSIDE RECORDS SUMMARY | 2025-04-03 12:11 | XMS_ITS | Encounter Summary ---
Author Organization [facility] Address [address] [place] [address] [place] [address] Phone Care Team Providers Care Saw Handle Assembler Name Role Phone Dallas Kirby CNP Primary Care Provider + [phone] Richardson Mckeon MD Unavailable [phone] Jagruti Jiménez MD Unavailable [phone] Zoila Hart MD Unavailable Michael Hargrove MD Unavailable [phone] Rianna Reina OT Unavailable [phone] Zoila Hart MD Unavailable Dallas Kirby CNP Unavailable [phone] Encounter Details Date Type Department Care Team (Late st Contact Info) Description 02/04/2022 Procedure Pass [facility], [address] [address] Social History Tobacco Use Types Packs/Day Years [...] high school, GED, job training, learning the [place] language, technical skills, or developing parenting skills)? [...] EDT Office Visit [facility] [address] [place] [address] Dallas Kirby CNP 22 [facility], [address] [place] [address] documented as of this encounter Visit Diagnoses Not on filedocumented in this encounter Additional Health Concerns Assessment Noted Time PHQ-2 Depression Total Score: 0 07/07/19 22 9:01 AM EST documented as of this encounter Care Teams Saw Handle Assembler Relationship Specialty Start Date End Date Dallas Kirby CNP [address] [place] [address], [address] [place] [address] [email or web address] PCP - General Family Medicine 04/20/19 Richardson Mckeon MD [address] [place] [address], [address] [place] [address] [email or web address] Insurance Assigned Provider 08/06/23 08/05/24 Jagruti Jiménez MD [address] [place] [address], [address] [place] [address] [email or web address] 05/07/19 Zoila Hart MD [address] [address] Dermatology 11/21/19 07/14/23 Michael Hargrove MD [address] [place] [address] Cardiology 10/10/20 Rianna Reina, OT [address] [place] [address] [email or web address] Transitions Gate WatchmanFront End Alignment Specialist Therapy 10/15/22 10/18/22 Zoila Hart MD [address] [place] [address] Dermatology 07/15/23 Dallas Kirby CNP [address] [place] [address], [address] [place] [address] [email or web address] Insurance Assigned Provider 08/05/24 documented as of this encounter Additional Source Comments The information contained in this document represents components of the legal health record. It is not the complete legal health record.[facility]
--- OUTSIDE RECORDS SUMMARY | 2025-04-03 12:11 | XMS_ITS | Encounter Summary ---
Author Organization [facility] Address [address] [place] [address] [place] [address] Phone Care Team Providers Care Speech Language Pathologist Assistant Name Role Phone Gutierrez Guadalupe DO Primary Care Provider [phone] Michael Hargrove MD Unavailable [phone] Dallas Kirby CNP Primary Care Provider [phone] Richardson Mckeon MD Unavailable [phone] Jagruti Jiménez MD Unavailable [phone] Zoila Hart MD Unavailable [phone] Michael Hargrove MD Unavailable Minerva Mcmillan PA-C Unavailable [phone] Dorian Arana DO Unavailable [phone] Rianna Reina OT Unavailable Zoila Hart MD Unavailable [phone] Dallas Kirby CNP Unavailable Encounter Details Date Type Department Care Team (Late st Contact Info) Description 03/18/2017 Procedure Pass [facility] Cardiac Transportation Worker [address] [facility], [address] 9, [address] [place] [address] Social History Tobacco Use Types [...] Description 07/19/2025 8:00 AM EDT Office Visit [facility] [address] [place] [address] [place] [address] Dallas Kirby CNP [address] [place] [address], [address] [place] [address] [email or web address] documented as of this encounter Visit Diagnoses Not on filedocumented in this encounter Additional Health Concerns Infection Onset Date Last Indicated Resolved Time CoV-Exposed Comment:Recent close contact 04/28/2020 04/28/2020 05/12/2020 1:24 AM EST documented as of this encounter Care Teams Speech Language Pathologist Assistant Relationship Specialty Start Date End Date Gutierrez Guadalupe DO [address] [place] [address] PCP - General Internal Medicine 01/28/17 04/19/19 Dallas Kirby CNP [address] [place] [address], [address] [place] [address] PCP - General Family Medicine 04/20/19 Michael Hargrove MD [address] [place] [address] Gift Shop Clerk Cardiology 01/28/17 04/19/19 Richardson Mckeon MD [address] [place] [address], [address] [place] [address] [email or web address] Insurance Assigned Provider 08/06/23 08/05/24 Jagruti Jiménez MD 22 [facility], [address] [place] [address] [email or web address] 05/07/19 Zoila Hart MD [address] [address] Dermatology 11/21/19 07/14/23 Michael Hargrove MD [address] [place] [address] Cardiology 10/10/20 Minerva Mcmillan PA-C [address] [place] [address] [email or web address] Physician Director Of Diagnostic Imaging Hematology 10/30/20 07/05/21 Dorian Arana DO [address] [place] [address] [email or web address] Primary Oncologist Hematology and Oncology 10/30/20 2 Rianna Reina, OT [address] [place] [address] [email or web address] Transitions Family And Divorce Legal AssistantAboriginal Ceremonial Celebrant Therapy 10/15/22 10/18/22 Zoila Hart MD [address] [address] Dermatology 07/15/23 Dallas Kirby CNP [address] [place] [address], [address] [place] [address] [email or web address] Insurance Assigned Provider 08/05/24 documented as of this encounter Additional Source Comments The information contained in this document represents components of the legal health record. It is not the complete legal health record.[facility]
--- OUTSIDE RECORDS SUMMARY | 2025-04-03 12:11 | XMS_ITS | Encounter Summary ---
Author Organization [facility] Address [address] [place] [address] Phone Care Team Providers Care Anode Builder Name Role Phone Dallas Kirby CLERICAL ADJUSTER Primary Care Provider [phone] Richardson Mckeon MD Unavailable [phone] Jagruti Jiménez MD Unavailable [phone] Zoila Hart MD Unavailable Michael Hargrove MD Unavailable Minerva Mcmillan PA-C Unavailable [phone] Dorian Arana DO Unavailable [phone] Rianna Reina OT Unavailable [phone] Zoila Hart MD Unavailable [phone] Dallas Kirby CNP Unavailable [phone] Encounter Details Date Type Department Care Team (Late st Contact Info) Description 09/19/2020 Procedure Pass [place] Admitting Dept - Virtual Department [address] [place] [address] Social History Tobacco Use Types Packs/Day Years [...] Description 07/19/2025 8:00 AM EDT [facility] [address] [address] Dallas Kirby CNP [address] [place] [address], [address] [place] [address] [email or web address] documented as of this encounter Visit Diagnoses Not on filedocumented in this encounter Additional Health Concerns Assessment Noted Time PHQ-2 Depression Total Score: 0 11/21/19 10:41 AM EDT documented as of this encounter Care Teams Anode Builder Relationship Specialty Start Date End Date Dallas Kirby CNP [address] [place] [address], [address] [place] [address] [email or web address] PCP - General Family Medicine 04/20/19 Richardson Mckeon MD [address] [place] [address], [address] [place] [address] [email or web address] Insurance Assigned Provider 08/06/23 08/05/24 Jagruti Jiménez MD [address] [place] [address], [address] [place] [address] [email or web address] 05/07/19 Zoila Hart MD [address] [place] [address] Dermatology 11/21/19 07/14/23 Michael Hargrove MD [address] [place] [address] [address] [place] [address] Cardiology 10/10/20 Minerva Mcmillan PA-C [address] [place] [address] [email or web address] Physician Refinery Superintendent Hematology 10/30/20 07/05/21 Dorian Arana DO [address] [place] [address] [email or web address] Primary Oncologist Hematology and Oncology 10/30/20 2 Rianna Reina, OT [address] [place] [address] [email or web address] Transitions Waste Paper Hammermill OperatorGuide Rail Cleaner Therapy 10/15/22 10/18/22 Zoila Hart MD [address] [place] [address] Dermatology 07/15/23 Dallas Kirby CNP 22 [facility], [address] [place] [address] [email or web address] Insurance Assigned Provider 08/05/24 documented as of this encounter Additional Source Comments The information contained in this document represents components of the legal health record. It is not the complete legal health record.[facility]
--- OUTSIDE RECORDS SUMMARY | 2025-04-03 12:11 | XMS_ITS | Encounter Summary ---
Author Organization [facility] Address [facility] [address] [place] [address] Phone Care Team Providers Care Mathematics Faculty Member Name Role Phone Gutierrez Guadalupe DO Primary Care Provider [phone] Michael Hargrove MD Unavailable Dallas Kirby CNP Primary Care Provider [phone] Richardson Mckeon MD Unavailable Jagruti Jiménez MD Unavailable [phone] Zoila Hart MD Unavailable [phone] Michael Hargrove MD Unavailable Minerva Mcmillan PA-C Unavailable Dorian Arana DO Unavailable Rianna Reina OT Unavailable Zoila Hart MD Unavailable Dallas Kirby CNP Unavailable Encounter Details Date Type Department Care Team (Latest Contact Info) Description 12/09/2017 Transcribe Orders [facility] Phleb Main [address] [place] [address] Juan José Rivera MD 100 [facility], [address] [place] [address] [email or web address] Sensory hearing loss, bilateral (Primary [...] Description 07/19/2025 8:00 AM EDT Office Visit [address] [place] [address] Dallas Kirby, MANSOOR 22 [facility], [address] [place] [address] documented as of this encounter Results * (ABNORMAL) BUN (12/09/2017 8:04 AM EDT) BUN 26(H) 6 - 19 mg/dL [facility] Blood 12/09/2017 8:04 AM EDT 12/09/2017 8:07 AM EDT us Juan José Rivera MD LAB BLOOD BKR ORDERABLES Final Result [facility] [address] [place] [address] documented in this encounter Visit Diagnoses Diagnosis Sensory hearing loss, bilateral- Primary documented in this encounter Additional Health Concerns Infection Onset Date Last Indicated Resolved Time CoV-Exposed Comment:Recent close contact 04/28/2020 04/28/2020 05/12/2020 1:24 AM EST documented as of this encounter Care Teams Mathematics Faculty Member Relationship Specialty Start Date End Date Gutierrez Guadalupe DO [address] [place] [address] PCP - General Internal Medicine 01/28/17 04/19/19 Dallas Kirby CNP [address] [place] [address], [address] [place] [address] [email or web address] PCP - General Family Medicine 04/20/19 Michael Hargrove MD [address] [place] [address] [place] [address] Pool Player Cardiology 01/28/17 04/19/19 Richardson Mckeon MD [address] [place] [address], [address] [place] [address] [email or web address] Insurance Assigned Provider 08/06/23 08/05/24 Jagruti Jiménez MD [address] [place] [address], [address] [place] [address] [email or web address] 05/07/19 Zoila Hart MD [address] [place] [address] Dermatology 11/21/19 07/14/23 Michael Hargrove MD [address] [place] [address] [place] [address] Cardiology 10/10/20 Minerva Mcmillan PA-C [address] [place] [address] [email or web address] Physician Lpc Hematology 10/30/20 07/05/21 Dorian Arana DO [address] [place] [address] [email or web address] Primary Oncologist Hematology and Oncology 10/30/20 2 Rianna Reina, OT [address] [place] [address] [email or web address] Transitions Employment OfficerStore Receiver Therapy 10/15/22 10/18/22 Zoila Hart MD [address] [address] Dermatology 07/15/23 Dallas Kirby CNP 22 [facility], [address] [place] [address] [email or web address] Insurance Assigned Provider 08/05/24 documented as of this encounter Additional Source Comments The information contained in this document represents components of the legal health record. It is not the complete legal health record.[facility]
--- OUTSIDE RECORDS SUMMARY | 2025-04-03 12:11 | XMS_ITS | Encounter Summary ---
Author Organization [facility] Address [address] [place] [address] [place] [address] Phone Care Team Providers Care Cnc Machinist 2Nd Shift Name Role Phone Dallas Kirby CNP Primary Care Provider [phone] Richardson Mckeon MD Unavailable [phone] Jagruti Jiménez MD Unavailable [phone] Zoila Hart MD Unavailable [phone] Michael Hargrove MD Unavailable Rianna Reina OT Unavailable Zoila Hart MD Unavailable [phone] Dallas Kirby CNP Unavailable [phone] Encounter Details Date Type Department Care Team (Late st Contact Info) Description 10/14/2022 Procedure Pass [facility], [address] [address] Social History Tobacco Use Types Packs/Day Years [...] 12:25 PM EDT Daniela Gallagher RN * [place] Suicide Severity Rating Scale (Screener/Recent Self-Report) Question [...] Description 07/19/2025 8:00 AM EDT Office Visit [facility] [address] [place] [address] Dallas Kirby CNP [address] [place] [address], [address] [place] [address] [email or web address] documented as of this encounter Visit Diagnoses Not on filedocumented in this encounter Additional Health Concerns Assessment Noted Time PHQ-2 Depression Total Score: 0 07/11/19 23 3:26 PM EST documented as of this encounter Care Teams Cnc Machinist 2Nd Shift Relationship Specialty Start Date End Date Dallas Kirby CNP [address] [place] [address], [address] [place] [address] [email or web address] PCP - General Family Medicine 04/20/19 Richardson Mckeon MD [address] [place] [address], [address] [place] [address] [email or web address] Insurance Assigned Provider 08/06/23 08/05/24 Jagruti Jiménez MD [address] [place] [address], [address] [place] [address] [email or web address] [email or web address] 05/07/19 Zoila Hart MD [address] [place] [address] Dermatology 11/21/19 07/14/23 Michael Hargrove MD [address] [place] [address] [address] [place] [address] Cardiology 10/10/20 Rianna Reina, OT [address] [place] [address] [email or web address] Transitions Program Director ScoutingPlant Utility Person Therapy 10/15/22 10/18/22 Zoila Hart MD [address] [place] [address] Dermatology 07/15/23 Dallas Kirby CNP 22 [facility], [address] [place] [address] [email or web address] Insurance Assigned Provider 08/05/24 documented as of this encounter Additional Source Comments The information contained in this document represents components of the legal health record. It is not the complete legal health record.[facility]
--- OUTSIDE RECORDS SUMMARY | 2025-04-03 12:11 | XMS_ITS | Encounter Summary ---
Author Organization [facility] Address [address] [place] [address] [place] [address] Phone Care Team Providers Care Express Clerk Name Role Phone Dallas Kirby CNP Primary Care Provider [phone] Richardson Mckeon MD Unavailable Jagruti Jiménez MD Unavailable [phone] Zoila Hart MD Unavailable [phone] Michael Hargrove MD Unavailable [phone] Rianna Reina OT Unavailable Zoila Hart MD Unavailable [phone] Dallas Kirby CNP Unavailable [phone] Encounter Details Date Type Department Care Team (Late st Contact Info) Description 10/14/2022 Procedure Pass [facility] [address] [place] [address] Social History Tobacco Use Types Packs/Day Years [...] 12:25 PM EDT Daniela Gallagher, RN * [place] Suicide Severity Rating Scale (Screener/Recent Self-Report) Question [...] Description 07/19/2025 8:00 AM EDT Office Visit [facility] [address] [place] [address] Dallas Kirby CNP [address] [place] [address], [address] [place] [address] [email or web address] documented as of this encounter Visit Diagnoses Not on filedocumented in this encounter Additional Health Concerns Assessment Noted Time PHQ-2 Depression Total Score: 0 07/11/19 23 3:26 PM EST documented as of this encounter Care Teams Express Clerk Relationship Specialty Start Date End Date Dallas Kirby CNP [address] [place] [address], [address] [place] [address] [email or web address] PCP - General Family Medicine 04/20/19 Richardson Mckeon MD [address] [place] [address], [address] [place] [address] [email or web address] Insurance Assigned Provider 08/06/23 08/05/24 Jagruti Jiménez MD [address] [place] [address], [address] [place] [address] [email or web address] 05/07/19 Zoila Hart MD [address] [place] [address] Dermatology 11/21/19 07/14/23 Michael Hargrove MD [address] [place] [address] [address] [place] [address] Cardiology 10/10/20 Rianna Reina, OT [address] [place] [address] [email or web address] Transitions Family Resource Management SpecialistProfile Mill Operator Tape Control Therapy 10/15/22 10/18/22 Zoila Hart MD [address] [place] [address] Dermatology 07/15/23 Dallas Kirby CNP 22 [facility], [address] [place] [address] [email or web address] Insurance Assigned Provider 08/05/24 documented as of this encounter Additional Source Comments The information contained in this document represents components of the legal health record. It is not the complete legal health record.[facility]
--- OUTSIDE RECORDS SUMMARY | 2025-04-03 12:11 | XMS_ITS | Encounter Summary ---
Author Organization [facility] Address [address] [place] [address] Phone Care Team Providers Care Clinical Staff Pharmacist Name Role Phone Dallas Kirby PERSONAL LINES ACCOUNT MANAGER Primary Care Provider [phone] Richardson Mckeon MD Unavailable [phone] Jagruti Jiménez MD Unavailable [phone] Zoila Hart MD Unavailable Michael Hargrove MD Unavailable [phone] Minerva Mcmillan PA-C Unavailable [phone] Dorian Arana DO Unavailable [phone] Rianna Reina OT Unavailable [phone] Zoila Hart MD Unavailable [phone] Dallas Kirby CNP Unavailable [phone] Encounter Details Date Type Department Care Team (Late st Contact Info) Description 10/01/2020 Procedure Pass [facility], Ct Scan - [address] [address] Social History Tobacco Use Types Packs/Day Years [...] 7:46 PM EDT Eunice Willard, RN * [place] Suicide Severity Rating Scale (Screener/Recent Self-Report) Question [...] Description 07/19/2025 8:00 AM EDT Office Visit [address] [address] Dallas Kirby CNP [address] [place] [address], [address] [place] [address] [email or web address] documented as of this encounter Visit Diagnoses Not on filedocumented in this encounter Additional Health Concerns Assessment Noted Time PHQ-2 Depression Total Score: 0 11/21/19 20 10:41 AM EDT documented as of this encounter Care Teams Clinical Staff Pharmacist Relationship Specialty Start Date End Date Dallas Kirby CNP [address] [place] [address], [address] [place] [address] [email or web address] PCP - General Family Medicine 04/20/19 Richardson Mckeon MD [address] [place] [address], [address] [place] [address] [email or web address] Insurance Assigned Provider 08/06/23 08/05/24 Jagruti Jiménez MD [address] [place] [address], [address] [place] [address] [email or web address] 05/07/19 Zoila Hart MD [address] [place] [address] Dermatology 11/21/19 07/14/23 Michael Hargrove MD [address] [place] [address] Cardiology 10/10/20 Minerva Mcmillan PA-C [address] [place] [email or web address] Physician Bowling Ball Engraver Hematology 10/30/20 07/05/21 Dorian Arana DO [address] [place] [address] [email or web address] Primary Oncologist Hematology and Oncology 10/30/20 2 Rianna Reina, OT 30 [place] [address] [email or web address] Transitions Crepe Sole ScourerTrailhead Construction Worker Therapy 10/15/22 10/18/22 Zoila Hart MD [address] [place] [address] Dermatology 07/15/23 Dallas Kirby, MANSOOR [address] [place] [address], [address] [place] [address] [email or web address] Insurance Assigned Provider 08/05/24 documented as of this encounter Additional Source Comments The information contained in this document represents components of the legal health record. It is not the complete legal health record.[facility]
--- OUTSIDE RECORDS SUMMARY | 2025-04-03 12:11 | XMS_ITS | Encounter Summary ---
Author Organization [facility] Address [address] [place] [address] Phone Care Team Providers Care Neon Sign Erector Name Role Phone Gutierrez Guadalupe DO Primary Care Provider + [phone] Michael Hargrove MD Unavailable [phone] Dallas Kirby CNP Primary Care Provider [phone] Richardson Mckeon MD Unavailable [phone] Jagruti Jiménez MD Unavailable [phone] Zoila Hart MD Unavailable Michael Hargrove MD Unavailable Minerva Mcmillan PA-C Unavailable [phone] Dorian Arana DO Unavailable [phone] Rianna Reina OT Unavailable [phone] Zoila Hart MD Unavailable [phone] Dallas Kirby CNP Unavailable [phone] Reason for Referral * MRI/CAT Scan - Closed Specialty Diagnoses / Procedures Referred By Contalfonso t Referred To Contact Radiology Diagnoses Sensorineural hearing loss (SNHL) of both ears Tinnitus, bilateral Nasal congestion Procedures MRI Brain MRI Brain Juan José Rivera MD [address] [address] Phone: tel: fax: mailto:[email or web address] Referral ID Status Reason Start Date Expiration Date Visits Re quested Visits Authorized [id number] Closed 12/01/2017 12/30/2017 1 1 Encounter Details Date Type Department Care Team (Latest Contact Info) Description 12/01/2017 Ancillary Orders Virtual Department 30 [place] [address] Juan José Rivera MD [address] [facility] [address] [place] [address] [email or web address] Sensorineural hearing loss (SNHL) of both [...] Description 07/19/2025 8:00 AM EDT Office Visit [address] [place] [address] Dallas Kirby, MANSOOR [address] [place] [address], [address] [place] [address] [email or web address] documented as of this encounter Results * [...] air cells greater on the right. POS [id number] Edited by: Echo Salazar on 12/20/2017 11:34 AM Narrative 12/20/2017 10:13 PM EDT HISTORY: Hearing test showed hearing loss left ear. Patient noticed this over past 6-7 years. 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 POS [id number] Edited by: Echo Salazar on 12/20/2017 11:34 [...] documented as of this encounter Care Teams Neon Sign Erector Relationship Specialty Start Date End Date Anayeli Gutierrez MinDO [address] [place] [address] PCP - General Internal Medicine 01/28/17 04/19/19 Dallas Kirby CNP [address] [place] [address], [address] [place] [address] [email or web address] PCP - General Family Medicine 04/20/19 Michael Hargrove MD [address] [place] [address] [address] [place] [address] Vegetable Cook Cardiology 01/28/17 04/19/19 Richardson Mckeon MD [address] [place] [address], [address] [place] [address] [email or web address] Insurance Assigned Provider 08/06/23 08/05/24 Jagruti Jiménez MD [address] [place] [address], [address] [place] [address] [email or web address] 05/07/19 Zoila Hart MD [address] [place] [address] Dermatology 11/21/19 07/14/23 Michael Hargrove MD [address] [place] [address] [address] [place] [address] Cardiology 10/10/20 Minerva Mcmillan PA-C 30 [place] [address] [email or web address] Physician Java Engineer Hematology 10/30/20 07/05/21 Dorian Arana DO 30 [place] [address] [email or web address] Primary Oncologist Hematology and Oncology 10/30/20 2 Rianna Reina OT 30 [place] [address] [email or web address] Transitions Bridge RiggerHealth And Wellness Coordinator Therapy 10/15/22 10/18/22 Zoila Hart MD [address] [place] [address] Dermatology 07/15/23 Dallas Kirby CNP 22 [facility], [address] [place] [address] [email or web address] Insurance Assigned Provider 08/05/24 documented as of this encounter Additional Source Comments The information contained in this document represents components of the legal health record. It is not the complete legal health record.[facility]
--- OUTSIDE RECORDS SUMMARY | 2025-04-03 12:11 | XMS_ITS | Encounter Summary ---
Author Organization [facility] Address [address] [place] [address] Phone Care Team Providers Care Soccer Player Name Role Phone Dallas Kirby [address]PENTER STREETCAR Primary Care Provider [phone] Richardson Mckeon MD Unavailable [phone] Jagruti Jiménez MD Unavailable [phone] Zoila Hart MD Unavailable [phone] Michael Hargrove MD Unavailable [phone] Minerva Mcmillan PA-C Unavailable [phone] Dorian Arana DO Unavailable [phone] Rianna Reina OT Unavailable [phone] Zoila Hart MD Unavailable [phone] Dallas Kirby CNP Unavailable [phone] Encounter Details Date Type Department Care Team (Late st Contact Info) Description 10/01/2020 Procedure Pass [facility], Ct Scan - [address] [address] Social History Tobacco Use Types Packs/Day Years [...] 7:46 PM EDT Eunice Willard, RN * [place] Suicide Severity Rating Scale (Screener/Recent Self-Report) Question [...] Description 07/19/2025 8:00 AM EDT Office Visit [address] [address] Dallas Kirby CNP [address] [place] [address], [address] [place] [address] [email or web address] documented as of this encounter Visit Diagnoses Not on filedocumented in this encounter Additional Health Concerns Assessment Noted Time PHQ-2 Depression Total Score: 0 11/21/19 20 10:41 AM EDT documented as of this encounter Care Teams Soccer Player Relationship Specialty Start Date End Date Dallas Kirby CNP [address] [place] [address], [address] [place] [address] [email or web address] PCP - General Family Medicine 04/20/19 Richardson Mckeon MD [address] [place] [address], [address] [place] [address] [email or web address] Insurance Assigned Provider 08/06/23 08/05/24 Jagruti Jiménez MD [address] [place] [address], [address] [place] [address] [email or web address] 05/07/19 Zoila Hart MD [address] [place] [address] Dermatology 11/21/19 07/14/23 Michael Hargrove MD [address] [place] [address] Cardiology 10/10/20 Minerva Mcmillan PA-C [address] [place] [address] [email or web address] Physician Drill Press Tender Hematology 10/30/20 07/05/21 Dorian Arana DO [address] [place] [address] [email or web address] .[email or web address] Primary Oncologist Hematology and Oncology 10/30/20 2 Rianna Reina, OT 30 [place] [address] [email or web address] Transitions Lead Ingot MolderNurse Private Duty Therapy 10/15/22 10/18/22 Zoila Hart MD [address] [place] [address] Dermatology 07/15/23 Dallas Kirby, MANSOOR [address] [place] [address], [address] [place] [address] [email or web address] Insurance Assigned Provider 08/05/24 documented as of this encounter Additional Source Comments The information contained in this document represents components of the legal health record. It is not the complete legal health record.[facility]
--- OUTSIDE RECORDS SUMMARY | 2025-04-03 12:11 | XMS_ITS | Encounter Summary ---
Author Organization [facility] Address [address] [place] [address] Phone Care Team Providers Care Sheet Metal Assembler Name Role Phone Gutierrez Guadalupe DO Primary Care Provider [phone] Michael Hargrove MD Unavailable [phone] Dallas Kirby CNP Primary Care Provider [phone] Richardson Mckeon MD Unavailable [phone] Jagruti Jiménez MD Unavailable [phone] Zoila Hart MD Unavailable [phone] Michael Hargrove MD Unavailable Minerva Mcmillan PA-C Unavailable [phone] Dorian Arana DO Unavailable [phone] Rianna Reina OT Unavailable [phone] Zoila Hart MD Unavailable [phone] Dallas Kriby CNP Unavailable Reason for Referral * Consultation (Elective) - Closed Specialty Diagnoses / Procedures Referred By Kimo t Referred To Contact Cardiac Rehabilitation Diagnoses Mitral valve prolapse Michael Hargrove MD Phone: tel: fax: [address] [address] Phone: tel: Referral ID Status Reason Start Date Expiration Date Visits Re quested Visits Authorized [id number] Closed 05/05/2017 05/05/2018 1 1 Encounter Details Date Type Department Care Team (Late st Contact Info) Description 05/05/2017 Transcribe Orders Virtual Department 30 [place] [address] Michael Hargrove MD [address] [place] [address] [address] [place] [address] Mitral valve prolapse (Primary Dx) Social History [...] Description 07/19/2025 8:00 AM EDT Office Visit [facility] [address] [place] [address] Dallas Kirby, MANSOOR 22 [facility], [address] [place] [address] [email or web address] Scheduled Referrals Name Type Priority Associated Diagnoses Order Schedule Ambulatory referral to [facility] Cardiac Rehab Outpatient Referral Routine Mitral valve prolapse Ordered: 05/05/2017 documented as of this encounter Procedures Procedure Name Priority Date/Time Associated Diagnosis Comments ECG 12-LEAD Routine 05/30/2017 10:33 AM EST Mitral valve prolapse documented in this encounter Results * ECG 12-LEAD (05/30/2017 10:33 AM EST) Ventricular Rate EKG/MIN 97 BPM [facility] Atrial Rate 97 BPM [facility] OK Interval 198 ms [facility] QRS Duration 112 ms [facility] QT Interval 392 ms [facility] QTC Interval 497 ms [facility] P Rockholds 65 degrees [facility] R Wave Rock[place] -32 degrees [facility] T Wave [place] 75 degrees [facility] 05/30/2017 10:3 3 AM [...] documented as of this encounter Care Teams Sheet Metal Assembler Relationship Specialty Start Date End Date Gutierrez Guadalupe DO [address] [place] [address] PCP - General Internal Medicine 01/28/17 04/19/19 Dallas Kirby CNP [address] [place] [address], [address] [place] [address] [email or web address] PCP - General Family Medicine 04/20/19 Michael Hargrove MD [address] [place] [address] Carding Doubler Cardiology 01/28/17 04/19/19 Richardson Mckeon MD [address] [place] [address], [address] [place] [address] [email or web address] Insurance Assigned Provider 08/06/23 08/05/24 Jagruti Jiménez MD [address] [place] [address], [address] [place] [address] [email or web address] 05/07/19 Zoila Hart MD [address] [address] Dermatology 11/21/19 07/14/23 Michael Hargrove MD [address] [place] [address] Cardiology 10/10/20 Minerva Mcmillan PA-C [address] [place] [address] [email or web address] Physician Cell Tuber Hand Hematology 10/30/20 07/05/21 Dorian Arana DO 30 [place] [address] [email or web address] Primary Oncologist Hematology and Oncology 10/30/20 2 Rianna Reina, OT 30 [place] [address] [email or web address] Transitions Geophysical DrafterHumanities Department Chair Therapy 10/15/22 10/18/22 Zoila Hart MD [address] [place] [address] Dermatology 07/15/23 Dallas Kirby CNP [address] [place] [address], [address] [place] [address] [email or web address] Insurance Assigned Provider 08/05/24 documented as of this encounter Additional Source Comments The information contained in this document represents components of the legal health record. It is not the complete legal health record.[facility]
--- OUTSIDE RECORDS SUMMARY | 2025-04-03 12:11 | XMS_ITS | Encounter Summary ---
Author Organization [facility] Address [address] [place] [address] [place] [address] Phone Care Team Providers Care Young Adult Librarian Name Role Phone Gutierrez Guadalupe DO Primary Care Provider [phone] Michael Hargrove MD Unavailable Dallas Kirby CNP Primary Care Provider [phone] Richardson Mckeon MD Unavailable Jagruti Jiménez MD Unavailable [phone] Zoila Hart MD Unavailable [phone] Michael Hargrove MD Unavailable Minerva Mcmillan PA-C Unavailable Dorian Arana DO Unavailable Rianna Reina OT Unavailable Zoila Hart MD Unavailable [phone] Dallas Kirby CNP Unavailable Encounter Details Date Type Department Care Team (Late st Contact Info) Description 12/09/2017 Ancillary Orders [facility], X-Ray - [facility] [address] [place] [address] Juan José Rivera MD [address] [place] [address], [address] [place] [address] [email or web address] Encounter for imaging to screen [...] Description 07/19/2025 8:00 AM EDT Office Visit [facility] [address] [place] [address] Dallas Kirby, MANSOOR 22 [facility], [address] [place] [address] documented as of this encounter Results * [...] documented as of this encounter Care Teams Young Adult Librarian Relationship Specialty Start Date End Date Gutierrez Guadalupe DO 5 [place] [address] PCP - General Internal Medicine 01/28/17 04/19/19 Dallas Kirby CNP [address] [place] [address], [address] [place] [address] PCP - General Family Medicine 04/20/19 Michael Hargrove MD [address] [place] [address] Train Gate Attendant Cardiology 01/28/17 04/19/19 Richardson Mckeon MD [address] [place] [address], [address] [place] [address] Insurance Assigned Provider 08/06/23 08/05/24 Jagruti Jiménez MD [address] [place] [address], [address] [place] [address] [email or web address] 05/07/19 Zoila Hart MD [address] [place] [address] Dermatology 11/21/19 07/14/23 Michael Hargrove MD [address] [place] [address] [place] [address] Cardiology 10/10/20 Minerva Mcmillan PA-C 30 [place] [address] Physician Photo Technologist Hematology 10/30/20 07/05/21 Dorian Arana DO [address] [place] [address] [email or web address] Primary Oncologist Hematology and Oncology 10/30/20 2 Rianna Reina, OT [address] [place] [address] [email or web address] Transitions Fruit And Vegetable ParerTrimmer And Reinforcer Therapy 10/15/22 10/18/22 Zoila Hart MD [address] [place] [address] Dermatology 07/15/23 Dallas Kirby CNP 22 [facility], [address] [place] [address] [email or web address] Insurance Assigned Provider 08/05/24 documented as of this encounter Additional Source Comments The information contained in this document represents components of the legal health record. It is not the complete legal health record.[facility]
== END 2025-04-03 10:37 | disposition home or self-care (01) ==
LOC: HO.LAB 10:36
PROVIDERS: Visit Provider Internal Medicine Cardiovascular Disease
DX: I42.9 Cardiomyopathy, unspecified (principal)
CPT/HCPCS: 36415; 80048